=== PATIENT | male | born 1945 | race Caucasian/White ===

== ENCOUNTER 2018-11-18 05:27 | Observation (INO) ==
--- NOTE | 2018-11-02 16:21 | PAT Medication Instructions ---
Medication Instructions Date of Service November 02, 2018 Home Medications aspirin 81 mg PO 4XWK atorvastatin 10 mg PO HS insulin detemir U-100 [Levemir U-100 Insulin] 16 unit SUBCUT HS metformin 1,000 mg PO BID multivitamin 1 tab PO DAILY omega 7-ajm-hfy-fish oil [Fish Oil] 1 cap PO DAILY potassium 99 mg PO BID semaglutide [Ozempic] 5 mg SUBCUT WK Continue as directed semaglutide [Ozempic] 5 mg SUBCUT WK ASK your prescriber and surgeon aspirin 81 mg PO 4XWK STOP taking 2 weeks before surgery (or as soon as possible if surgery is within 2 weeks) omega 4-iav-cnk-fish oil [Fish Oil] 1 cap PO DAILY DO NOT take the morning of surgery metformin 1,000 mg PO BID multivitamin 1 tab PO DAILY potassium 99 mg PO BID Take evening before surgery atorvastatin 10 mg PO HS insulin detemir U-100 [Levemir U-100 Insulin] 16 unit SUBCUT HS metformin 1,000 mg PO BID potassium 99 mg PO BID Other Notes If you have any questions please call us at [phone] or [phone] or [phone] or [phone]
--- NOTE | 2018-11-03 10:33 | Anesthesiology Consultation ---
Date of Service November 03, 2018 Assessment & Plan (1) Encounter for pre-operative examination: - ASA instructions: per surgeon/prescriber. - Check [facility] AM DOS Chart Review Chart Review: Pending: Refer to Additional Notes / Consult section (pending preop testing (labs, EKG)) and Patient seen in Pre Admission Testing Teaching & Discussion Pre-Anesthesia Teaching/Discussion Notes: Instructed NPO after midnight before surgery,except medications with 15 cc of water. Medication instructions provided according to the PAT guidelines. History Surgery Operation Date: 11/18/18 12:15 Proposed Procedures p Left Parotidectomy - Mini Marie MD Height/Weight Height: 5 ft 8 in Weight: 80.8 kg Allergies Allergy/AdvReac Type Severity Reaction Status Date / Time canagliflozin [From Invokana] Allergy Intermediate facial Verified 11/03/18 10:31 swelling lisinopril Allergy Intermediate Cough Verified 10/28/18 11:51 losartan Allergy Intermediate Cough Verified 10/28/18 11:51 azithromycin Allergy Mild Diarrhea Verified 10/28/18 11:51 Medications Home Medications Medication Instructions Recorded Confirmed Last Taken aspirin 81 mg PO 4XWK 10/28/18 10/28/18 Unknown atorvastatin 10 mg PO HS 10/28/18 10/28/18 Unknown insulin detemir U-100 [Levemir 16 unit SUBCUT HS 10/28/18 10/28/18 Unknown U-100 Insulin] metformin 1,000 mg PO BID 10/28/18 10/28/18 Unknown multivitamin 1 tab PO DAILY 10/28/18 10/28/18 Unknown omega 8-roo-fir-fish oil [Fish Oil] 1 cap PO DAILY 10/28/18 10/28/18 Unknown potassium 99 mg PO BID 10/28/18 10/28/18 Unknown semaglutide [Ozempic] 5 mg SUBCUT WK 10/28/18 10/28/18 Unknown Past Medical History Medical History Diabetes mellitus, type 2 IDDM History of high blood pressure previously on BP meds but discontinued due to good control off meds Hyperlipidemia Osteoarthritis Exercise / Class Metabolic Activity II 4-5 Yardwork/Stairs/Walk up hill Past Family History Family History Other No significant family history Past Surgical History Surgical History History of arthroscopy RT KNEE X 2 History of cardiac cath 2010= NO STENTS History of colonoscopy History of tonsillectomy and adenoidectomy History of tooth extraction Past Anesthesia History No Hx of Anesthesia Complications and No Family Hx of Anesthesia Complications History of PONV No Hx of PONV and No Hx of Motion Sickness Social History Smoking Status: Current every day smoker tobacco type: cigars Smoking cigarettes per day: 5 CIGARS/DAILY X 40+ YEARS Do You Dip or Chew Tobacco: No Hx Alcohol Use: No Hx Substance Use: No substance use type: does not use Review of Systems Patient denies chest pain, shortness of breath, dyspnea on exertion, reflux, cough, wheezing, palpitations. Physical Exam Vital Signs VITALS BP 133/76 P 63 TEMP 97.9 SP02 95%RA RESP 16 PHYSICAL Full neck and c-spine range of motion. Full TMJ range of motion. TMD 3.5 finger breaths Mallampati Score 2 Dentition: full upper denture; edentulous Lungs: clear throughout to auscultation Cardiac: regular rate and rhythm, no murmurs noted Spine: normal Carotid arteries: negative bruit Extremities: no edema
[2018-11-03 11:04] LABS: Basophils # (auto) 0.02 K/uL (0-0.2); Basophils % (auto) 0.2 %; Eosinophils # (auto) 0.38 K/uL (0-0.5); Eosinophils % (auto) 3.2 %; Hematocrit (blood only) 49.3 % (42-52); Hemoglobin 17.4 g/dL (14.0-18.0); Immature Granulocytes # (auto) 0.04 K/uL (0.00-0.02); Immature Granulocytes % (auto) 0.3 %; Lymphocytes # (auto) 3.35 K/uL (1.2-3.4); Lymphocytes % (auto) 27.9 %; Mean Corpuscular Hemoglobin 33.1 pg (25-34); Mean Corpuscular Hgb Conc 35.3 g/dL (32-36); Mean Corpuscular Volume 93.9 fL (80-100); Mean Platelet Volume 10.5 fL (7.4-10.4); Monocytes # (auto) 0.85 K/uL (0.11-0.59); Monocytes % (auto) 7.1 %; Neutrophils # (auto) 7.37 K/uL (1.4-6.5); Neutrophils % (auto) 61.3 %; Platelet Count 157 K/uL (130-400); RDW Coefficient of Variation 13.4 % (11.5-14.5); Red Blood Count 5.25 M/uL (4.7-6.1); White Blood Count 12.01 K/uL (4.8-10.8)
[2018-11-03 11:27] LABS: Estimated Average Glucose 157 mg/dl; Hemoglobin A1C 7.1 % (4.5-5.6)
[2018-11-03 12:16] LABS: BUN Creatinine Ratio 17.7 (10-20); Calcium 9.9 mg/dl (8.5-10.1); Creatinine Clr Calc Pharmacy 50.5 ml/min; Est GFR (African American) 64.4; Est GFR (Non-African American) 55.5; Potassium 4.4 mmol/L (3.5-5.1)
--- NOTE | 2018-11-17 14:29 | History & Physical Report ---
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 admitted for superficial parotidectomy Allergies Allergy/AdvReac Type Severity Reaction Status Date / Time canagliflozin [From Invokana] Allergy Intermediate facial Verified 11/03/18 10:31 swelling lisinopril Allergy Intermediate Cough Verified 10/28/18 11:51 losartan Allergy Intermediate Cough Verified 10/28/18 11:51 azithromycin Allergy Mild Diarrhea Verified 10/28/18 11:51 Home Medications Home Medications Medication Instructions Recorded Confirmed Type aspirin 81 mg PO 4XWK 10/28/18 10/28/18 History atorvastatin 10 mg PO HS 10/28/18 10/28/18 History insulin detemir U-100 [Levemir 16 unit SUBCUT HS 10/28/18 10/28/18 History U-100 Insulin] metformin 1,000 mg PO BID 10/28/18 10/28/18 History multivitamin 1 tab PO DAILY 10/28/18 10/28/18 History omega 5-otq-xlr-fish oil [Fish Oil] 1 cap PO DAILY 10/28/18 10/28/18 History potassium 99 mg PO BID 10/28/18 10/28/18 History semaglutide [Ozempic] 5 mg SUBCUT WK 10/28/18 10/28/18 History Past Med/Surg History Medical History Diabetes mellitus, type 2 IDDM History of high blood pressure previously on BP meds but discontinued due to good control off meds Hyperlipidemia Osteoarthritis Surgical History History of arthroscopy RT KNEE X 2 History of cardiac cath 2010= NO STENTS History of colonoscopy History of tonsillectomy and adenoidectomy History of tooth extraction Family History Other No significant family history Social History Preferred Language: Romansh Communication Ability: Effective Dehairer Required: No Beliefs That Will Affect Care: None Current Living Situation: Family Current Living Situation Comment: DAUGHTER Other Information That Helps Us Care for You: No Feels Safe at Home: Yes Safety Concerns: Feels Safe At This Time Smoking Status: Current every day smoker Tobacco Type: cigars ; Cigarettes Per Day: 5 CIGARS/DAILY X 40+ YEARS ; Do You Dip or Chew Tobacco: No ; Second Hand Exposure: No ; Tobacco Cessation Education Requested by Patient: No Hx Alcohol Use: No Hx Substance Use: No Physical Exam Constitutional: WD/WN, vitals as above Eyes: PERRL, conjunctivae normal, anicteric sclerae ENMT: external ear and nose normal, oropharynx normal Neck: 6 cm left tail of parotid mass Respiratory: normal respiratory effort, lungs clear to auscultation Cardiovascular: RRR, no murmur, no edema
[2018-11-18] MEDS ORDERED: LR 15ML/HR IV SCH (06:00)
[2018-11-18] MEDS ORDERED: ONDANSETRON INJ 2 MG/ML 2 ML VIAL ONE (06:45)
[2018-11-18] MEDS ORDERED: MIDAZOLAM HCL 1 MG/ML 2ML VIAL ONE (06:45)
[2018-11-18] MEDS ORDERED: LIDOCAINE HCL 2% 2 ML VIAL/AMP(20MG/ML) INFIL ONE (06:45)
[2018-11-18] MEDS ORDERED: ROCURONIUM BROMIDE 10 MG/ML 5 ML VIAL ONE (06:45)
[2018-11-18] MEDS ORDERED: PROPOFOL IV EMULSION 10 MG/ML 20 ML VIAL IV ONE (06:45)
[2018-11-18] MEDS ORDERED: fentaNYL citrate 100 MCG/2 ML VIAL ONE ×2 (06:45→08:19)
[2018-11-18] MEDS ORDERED: CEFAZOLIN 2,000 MG/15 ML IV PUSH IV ONE (06:57)
[2018-11-18] MEDS ORDERED: ONDANSETRON INJ 2 MG/ML 2 ML VIAL IV PRN ×3 (07:01→09:54)
[2018-11-18] MEDS ORDERED: ePHEDrine sulfate 50 MG/ML AMP IV PRN (07:01)
[2018-11-18] MEDS ORDERED: fentaNYL citrate 100 MCG/2 ML VIAL IV PRN (07:01)
[2018-11-18] MEDS ORDERED: ATROPINE SULFATE 0.1 MG/ML 10ML SYR IV PRN (07:01)
[2018-11-18] MEDS ORDERED: CEFAZOLIN 2000MG 2,000 MG/15 ML SYR IV ONE (07:02)
--- NOTE | 2018-11-18 07:02 | History & Physical Bridge Note ---
Date of Service November 18, 2018 History & Physical Bridge Note I have examined the patient, reviewed the History & Physical and in the interval since the performance of the History & Physical I have noted the following changes of clinical significance: no changes noted
[2018-11-18] MEDS ORDERED: BACITRACIN OINT 15 GM TUBE ONE (07:14)
[2018-11-18] MEDS ORDERED: LIDOCAINE/EPINE 2% 1:100,000 20ML ONE (07:15)
[2018-11-18] MEDS ORDERED: OXYCODONE/ACETAMINOPHEN 5mg/325mg TAB PO PRN (09:52)
[2018-11-18] MEDS ORDERED: MoRPHine SULFATE 4 MG/ML 1 ML CARP\\VIAL IV PRN (09:54)
[2018-11-18] MEDS ORDERED: MoRPHine SULFATE 10 MG/ML CARP/VIAL IV PRN (09:54)
[2018-11-18] MEDS ORDERED: LACTATED RINGER'S 1,000 ML IV SCH (10:00)
--- NOTE | 2018-11-18 10:11 | Operative Report ---
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 The left parotid incision was delineated and injected with 2% Xylocaine with 1-100,000 strength epinephrine. Incision was made using a 15 blade following the preauricular crease around the lobule of the ear to the m astoid and then in a curvilinear manner down the neck. The parotid flap was elevated using the 15 blade and the scissors. The sternocleidomastoid muscle was from the parotid gland posteriorly. The gland was from the auricular cartilage and the tragal cartilage superiorly. Greater auricular nerve was encountered preserving the posterior branch but sacrificing the anterior branches going across the parotid gland. Dissection was continued following the tragal pointer down to the facial nerve which was followed from the pez anserinus anteriorly and then tracing all branches of the nerve anteriorly as it exited the parotid gland the superficial lobe from the deep lobe and also preserving most of the superior portion of the parotid above the temporal zygomatic division of the facial nerve. Bleeders were controlled using the bipolar cautery and the harmonic scalpel. Silk ties were also used to control bleeders. Posterior facial vein was clamped divided and tied with silk ties. In this manner the entire superficial lobe of the parotid was removed along with the tumor and sent to pathology. The wound was irrigated copious amounts of saline and further bleeders were controlled using the bipolar cautery. Salix drain was placed in the depth of the wound. Incision was closed with interrupted 4-0 Vicryl sutures on the platysma layer and on the sub- cutaneous layer and then 5-0 nylon on the skin layer. A light pressure dressing was placed. The patient tolerated procedure well and was taken to recovery area in satisfactory condition. I attest to the content of the Intraoperative Record and any orders documented therein. Any exceptions are noted below.
--- NOTE | 2018-11-18 10:35 | Anesthesiology Progress Note ---
Date of Service November 18, 2018 Anesthesia Post Procedure Vital Signs Vital Signs: Temp Pulse Pulse Resp BP Pulse Ox 11/18/18 10:24 83 22 113/64 92 11/18/18 10:15 97.5 F L 86 21 120/68 98 11/18/18 10:05 97.5 F L 90 22 106/55 L 99 11/18/18 09:55 97.5 F L 94 H 16 130/73 99 11/18/18 05:52 98.6 F 78 18 145/58 H 97 Pain Intensity Left Neck: Pain Intensity: 2 Transfer of Care Handoff Completed per policy Notes Mental Status: alert / awake / arousable and participated in evaluation Patient Amnestic to Procedure: Yes Nausea / Vomiting: adequately controlled Pain: adequately controlled Airway Patency, RR, SpO2: stable & adequate BP & HR: stable & adequate Hydration State: stable & adequate Anesthetic Complications: no major complications apparent and Pt Satisfied with anesthetic care
[2018-11-18] MEDS: CEFAZOLIN 1000MG 1,000 MG/7.5 ML SYR IV SCH ×2 (14:16→22:15)
[2018-11-18] MEDS: METFORMIN HCL 500 MG TAB PO SCH (17:44)
[2018-11-18] MEDS ORDERED: INSULIN DETEMIR FLEXPEN/FLEX TOUCH 100 UNITS/ML 3ML SQ SCH (21:00)
[2018-11-18] MEDS ORDERED: ATORVASTATIN 10 MG TAB PO SCH (21:00)
[2018-11-18] MEDS ORDERED: NON-FORMULARY MEDICATION (Potassium 99 MG) PO SCH (21:00)
[2018-11-19] MEDS: CEFAZOLIN 1000MG 1,000 MG/7.5 ML SYR IV SCH (06:08)
[2018-11-19 07:38] LABS: Estimated Average Glucose 151 mg/dl; Hemoglobin A1C 6.9 % (4.5-5.6)
--- NOTE | 2018-11-19 08:03 | Discharge Summary ---
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 Discharge Exam Constitutional WD/WN, vitals as above Eyes PERRL, conjunctivae normal, anicteric sclerae ENMT external ear and nose normal, oropharynx normal Neck Status post left parotidectomy, drain removed, no sign of hematoma, light dressing placed Neurologic Able to close left eye, weakness left face but mobile Discharge Data Allergies Allergy/AdvReac Type Severity Reaction Status Date / Time canagliflozin [From Invokana] Allergy Intermediate facial Verified 11/18/18 05:46 swelling lisinopril Allergy Intermediate Cough Verified 11/18/18 05:46 losartan Allergy Intermediate Cough Verified 11/18/18 05:46 azithromycin Allergy Mild Diarrhea Verified 11/18/18 05:46 Procedures Performed Operation Date: 11/18/18 07:15 Actual Procedures p Left Parotidectomy(Left) - Mini Marie MD Hospital Course (1) Mass of left parotid gland: Left superficial parotidectomy was performed date of surgery without complication finding all branches of the nerve. Postoperatively there was weakness of the left face. Drain was removed on the first postoperative date. The patient is discharged home and instructed to return to my office in 10 days for suture removal. The facial nerve was intact at surgery so the facial weakness should gradually return to normal. Total Time Total Time Spent Total Time Spent (In Minutes): 30 minutes Discharge Plan Discharge Items Patient Disposition: Home - Self-Care Reason For Visit: Left Parotid Mass Discharge Diagnosis: Same Activity: Per Instructions section Lifting: Gradually increase as tolerated Bathing: No limitations Sexual Activity: When tolerated Exercise/Sports: Rest today and Gradually increase as tolerated Driving/Machine Use: Resume 1 day after discharge Non-emergency contact: Primary Care Provider Call non-emergency contact if: your pain is not controlled and your temperature is above 101 Follow-up/Referrals: PCP,NO [Primary Care Provider] - Diet: Regular Addtl Attending Provider Instructions: ACTIVITY: Most patients are able to return to a full-time work schedule in 1 week; however this may vary according to your job. It may take longer to return to heavy physical or other demanding work, or shorter if you are feeling well. Do NOT drive a car until you are able to turn the neck side to side, which may take 1-[address] you are taking pain medicines. DIET: You may have temporary throat discomfort or difficulty swallowing. This is due to the surgery around your larynx (voice box) and esophagus (swallowing tube). These symptoms will gradually improve over the course of several weeks. Drink and eat foods that can be swallowed easily, e.g. juice, soup, gelatin, applesauce, scrambled eggs or mashed potatoes. You may be able to return to your usual diet in a couple of days. INCISION CARE: You may shower 24 hours after surgery but please do not swim or soak in a tub for at least 2 weeks. After you are done showering, just pat your incision dry. If it is draining clear fluid, you can cover it with a dry dressing (such as gauze). Do NOT scrub with soap or washcloth for the first 10 days. Mild swelling at the incision site will go away in 4-6 weeks. The pink line will slowly fade to white during the next 6-12 months. Use a sunscreen (SPF#30 or higher) or wear a scarf for protection if in the sun for the first 6 months to a year as the sun can darken your scar. You may begin to use a hypoallergenic moisturizing cream (no vitamin E, Mederma, or other scar creams) along the incision after 2 weeks. COMMON PROBLEMS: Numbness of the skin under the chin or above the incision is normal and should go away in a few weeks. You may feel a lump or pressure in your throat sensation when swallowing for a few days. Your incision may feel itchy while it heals. Avoid rubbing or scratching if possible. You may feel neck stiffness, tightness or a pulling feeling. Some people prefer to sleep with an extra pillow for the first few days after the surgery, this helps keep swelling around your incision to a minimum. Your voice may be hoarse or weak. Pitch or tone may change. You may have difficulty singing. This usually goes back to normal over 6 weeks to 6 months. After surgery, you may notice a change in your mood, emotional ups and downs, depression, irritability or fatigue and weakness. These changes will get better as time passes. You do not need to be at bed rest, being active is normally well tolerated within reason. CALL YOUR DOCTOR IF: For any non-urgent questions, call Dr. Conklin office [phone] or the nursing unit where you were a patient. Call Dr. Marie [phone] or go to the Emergency Room if you have fever (temperature greater than 100.5), chills, lightheadedness, shortness of breath, difficulty breathing, nausea, vomiting, numbness or tingling in your fingers, hands, or mouth, muscle spasms, or if you notice signs of wound infection (redness, tenderness, or drainage from the incision). Please also call or go to the Emergency Room if you have any other urgent concerns. FOLLOW UP VISIT: Follow-up visit with Dr. Marie. Please call to schedule if not already scheduled. Pending Studies at Discharge: Yes Studies:: Pathology Stand-Alone Forms: [facility] Medications and DC Order Prescriptions: New tramadol 50 mg Tablet 50 mg PO Q6H PRN (Reason: pain) Qty: 20 RF: 0 Continued multivitamin Tablet 1 tab PO DAILY RF: 0 atorvastatin 10 mg Tablet 10 mg PO HS RF: 0 potassium 99 mg Tablet 99 mg PO BID RF: 0 metformin 1,000 mg Tablet 1,000 mg PO BID RF: 0 Levemir U-100 Insulin 100 unit/mL Solution 16 unit SUBCUT HS RF: 0 omega 5-jis-zhl-fish oil [Fish Oil] 1,000 mg (120 mg-180 mg) Capsule 1 cap PO DAILY RF: 0 Ozempic 0.25 mg or 0.5 mg(2 mg/1.5 mL) Pen Injector 5 mg SUBCUT WK RF: 0 aspirin 81 mg Tablet,Delayed Release (Dr/Ec) 81 mg PO 4XWK RF: 0 Discharge Orders: Discharge Order (Routine); Ordered 11/19/18 Ordered By: Mini Marie Admission Data Admit Date/Time: 11/18/18 09:56 Attending Provider: Mini Marie Admit Provider: Mini Marie Primary Care Provider: [email or web address]
[2018-11-19] MEDS: METFORMIN HCL 500 MG TAB PO SCH (08:23)
== END 2018-11-19 09:35 | disposition home or self-care (01) ==
LOC: ASU 05:27 → 3N 05:27

== ENCOUNTER 2019-09-06 06:19 | Inpatient (IN) ==
--- NOTE | 2019-08-22 16:44 | PAT Medication Instructions ---
Medication Instructions Date of Service August 22, 2019 Home Medications Levemir U-100 Insulin 16 unit SUBCUT HS Ozempic 5 mg SUBCUT WK aspirin 81 mg PO 4XWK atorvastatin 20 mg PO HS metformin 1,000 mg PO BID multivitamin 1 tab PO QAM omega 2-gnw-lnr-fish oil [Fish Oil] 1 cap PO QAM potassium gluconate 600 mg PO BID saw-vit E-sod dee-xwg-mdwp-pyg [Prostate Health] 1 tab PO QAM Continue as directed Ozempic 5 mg SUBCUT WK (just do not take AM of surgery) ASK your surgeon for instructions aspirin 81 mg PO 4XWK STOP taking 2 weeks before surgery saw-vit E-sod gjg-xts-czxp-pyg [Prostate Health] 1 tab PO QAM omega 4-jbk-eid-fish oil [Fish Oil] 1 cap PO QAM DO NOT take the morning of surgery potassium gluconate 600 mg PO BID multivitamin 1 tab PO QAM metformin 1,000 mg PO BID Take evening before surgery potassium gluconate 600 mg PO BID atorvastatin 20 mg PO HS metformin 1,000 mg PO BID Levemir U-100 Insulin 16 unit SUBCUT HS OTHERWISE NOTHING TO EAT OR DRINK AFTER MIDNIGHT Other Notes If you have any questions please call us at [phone] or [phone] or [phone] or [phone]
--- NOTE | 2019-08-23 13:59 | Anesthesiology Consultation ---
Date of Service August 23, 2019 The patient is recovering from a recent URI. He has no cough or fever at this time. He was tested for Covid 19 on 08/25/19 after the URI started and again on 09/01/19 and was found to be negative both times. The risks of worsening URI after general anesthesia were discussed with the patient and he would like to proceed with surgery today. Assessment & Plan (1) Encounter for pre-operative examination: Chart Review Chart Review: Acceptable Risk for Surgery (pending preop Covid testing ) and Patient seen in Pre Admission Testing - Check BSG AM DOS Per PAT appt 08/23/19, no recent travel. Educated patient to follow up with surgeon's office regarding Covid testing. Educated on importance of self quarantining, social distancing and wearing mask in public both for the patient and household contacts. Left parotidectomy 11/18/18= Done under GA with LMA #5 i-gel. No anesthesia issues noted Teaching & Discussion Pre-Anesthesia Teaching/Discussion Notes: Instructed NPO after midnight before surgery,except medications with 15 cc of water. Medication instructions provided according to the PAT guidelines. History Surgery Operation Date: 09/06/19 08:25 Proposed Procedures p Percutaneous Endovascular Aneurysm Repair - Hector Burt MD Height/Weight Height: 5 ft 7 in Weight: 78.9 kg Allergies Allergy/AdvReac Type Severity Reaction Status Date / Time canagliflozin [From Invokana] Allergy Intermediate facial Verified 09/06/19 06:42 swelling lisinopril Allergy Intermediate Cough Verified 09/06/19 06:42 losartan Allergy Intermediate Cough Verified 09/06/19 06:42 azithromycin Allergy Mild Diarrhea Verified 09/06/19 06:42 Medications Home Medications Medication Instructions Recorded Confirmed Last Taken Levemir U-100 Insulin 16 unit SUBCUT HS 10/28/18 09/06/19 09/05/19 21:30 Ozempic 5 mg SUBCUT WK 10/28/18 09/06/19 09/01/19 aspirin 81 mg PO 4XWK 10/28/18 09/06/19 08/30/19 atorvastatin 20 mg PO HS 10/28/18 09/06/19 09/05/19 21:30 metformin 1,000 mg PO BID 10/28/18 09/06/19 09/05/19 21:30 multivitamin 1 tab PO QAM 10/28/18 09/06/19 09/05/19 09:00 omega 9-zvy-usf-fish oil [Fish Oil] 1 cap PO QAM 10/28/18 09/06/19 08/23/19 potassium gluconate 600 mg PO BID 08/18/19 09/06/19 09/03/19 saw-vit E-sod vhd-voe-mxur-pyg 1 tab PO QAM 08/18/19 09/06/19 08/23/19 [Prostate Health] Active Medications Generic Name Dose Route Start Last Admin Trade Name Abhishek PRN Reason Stop Dose Admin Sodium Chloride 1,000 mls @ 50 mls/hr 09/06/19 06:00 09/06/19 07:04 Nss 1000ml IV 09/07/19 01:59 50 mls/hr .Q20H CRISTHIAN Administration Past Medical History Medical History Abdominal aortic aneurysm REASON FOR PROCEDURE Diabetes mellitus, type 2 IDDM-WELL CONTROLLED AND STABLE Hearing deficit WEARS HEARING AIDS History of high blood pressure previously on BP meds but discontinued due to good control off meds Hyperlipidemia Osteoarthritis Seasonal allergies Tinnitus Exercise / Class Metabolic Activity II 4-5 Yardwork/Stairs/Walk up hill (ONE FLIGHT OF STAIRS - NO CHEST PAIN OR SOB ) Past Family History Family History Other No significant family history Past Surgical History Surgical History History of arthroscopy RT KNEE History of cardiac cath 2010= NO STENTS History of colonoscopy History of tonsillectomy and adenoidectomy History of tooth extraction Warthin's tumor WITH REMOVAL Past Anesthesia History No Hx of Anesthesia Complications and No Family Hx of Anesthesia Complications History of PONV No Hx of PONV and No Hx of Motion Sickness Social History Smoking Status: Current every day smoker tobacco type: cigars Smoking cigarettes per day: 4-5 CIGARS PER DAY Do You Dip or Chew Tobacco: No Hx Alcohol Use: No Hx Substance Use: No substance use type: does not use Review of Systems Patient denies chest pain, shortness of breath, dyspnea on exertion, reflux, cough, wheezing, palpitations. No hx of seizures, stroke, [place], apnea/snoring. No hx of blood clots or blood transfusions Physical Exam Vital Signs Last Vital Signs Temp 36.7 C 09/06/19 06:48 Pulse 80 09/06/19 06:48 Resp 18 09/06/19 06:48 BP 152/98 H 09/06/19 06:48 Pulse Ox 96 09/06/19 06:48 VITALS BP 147/77 P 87 TEMP 98.5 SP02 96% RESP 16 Constitutional no acute distress ENMT Mouth: no TMJ clicking Thyromental Distance: > or= 3.5 Finger Breadths (3.5) Mallampati Class: II Missing all teeth Neck + limited neck extension (mild ) Respiratory normal respiratory effort; no respiratory distress Auscultation: lungs clear to auscultation bilaterally; no wheezes Cardiovascular Rate/Rhythm: regular rate and regular rhythm Heart Sounds: no murmur Vessels: no carotid bruit Musculoskeletal Spine: + pain with cervical ROM (mild ) Neurologic moves all extremities Psychiatric Orientation: alert Testing Laboratory Results 08/23/19 14:10 PT 11.3 Seconds (9.0-12.0) 08/23/19 14:10 INR 1.1 (0.9-1.1) 08/23/19 14:10 APTT 33.4 Seconds (21.0-31.0) H 08/23/19 14:10 Hemoglobin A1c 7.0 % (4.5-5.6) H 08/23/19 14:10 Blood Type O Positive 08/23/19 14:10 Antibody Screen NEGATIVE 08/23/19 14:10 09/06/19 06:39 POC Glucose 135 H Leukocytosis stable since 10/2018 Electrocardiogram Date: 11/03/18 Findings: + NSR @ (64) Chest X-Ray Date: 08/23/19 Findings: + NAD Stress Test Date: 03/23/18 Type: nuclear Normal myocardial perfusion study without fixed or stressed induced reversible ischemia. Normal wall motion. EF= 51%
--- NOTE | 2019-08-23 14:32 | XRay Report ---
XR chest Pre-admission PA/Lat CLINICAL HISTORY: Preoperative chest COMPARISON STUDY: 06/08/2010 FINDINGS: The heart is normal in size. The patient is mildly hyperinflated. There is no focal pulmona ry consolidation. There are small subpleural septal lines at the right lateral lung base. These likel y represent areas of atelectasis or scarring. Acute interstitial edema is not felt likely.[ IMPRESSION: No active disease in the chest. ACT 112: Negative or not required by law. Electronically signed by: Odell Yang M.D. 08/23/2019 2:31 PM
[2019-08-23 16:10] LABS: Basophils # (auto) 0.03 K/uL (0-0.2); Basophils % (auto) 0.2 %; Eosinophils # (auto) 0.51 K/uL (0-0.5); Hematocrit (blood only) 46.5 % (42-52); Immature Granulocytes # (auto) 0.03 K/uL (0.00-0.02); Immature Granulocytes % (auto) 0.2 %; Lymphocytes # (auto) 2.65 K/uL (1.2-3.4); Lymphocytes % (auto) 20.8 %; Mean Corpuscular Hemoglobin 31.9 pg (25-34); Mean Corpuscular Hgb Conc 34.4 g/dL (32-36); Mean Corpuscular Volume 92.8 fL (80-100); Mean Platelet Volume 11.2 fL (7.4-10.4); Monocytes # (auto) 0.86 K/uL (0.11-0.59); Monocytes % (auto) 6.7 %; Neutrophils # (auto) 8.68 K/uL (1.4-6.5); Neutrophils % (auto) 68.1 %; Platelet Count 170 K/uL (130-400); RDW Standard Deviation 44.3 fL (36.4-46.3); Red Blood Count 5.01 M/uL (4.7-6.1); White Blood Count 12.76 K/uL (4.8-10.8)
[2019-08-23 16:20] LABS: Calcium 9.4 mg/dl (8.5-10.1); Creatinine Clr Calc Pharmacy 41.3 ml/min; Est GFR (African American) 53.2; Est GFR (Non-African American) 45.9; Potassium 4.4 mmol/L (3.5-5.1)
[2019-08-23 16:22] LABS: INR 1.1 (0.9-1.1); Partial Thromboplastin Ratio 1.2; Partial Thromboplastin Time 33.4 Seconds (21.0-31.0); Prothrombin Time 11.3 Seconds (9.0-12.0)
[2019-08-24 06:10] LABS: Estimated Average Glucose 154 mg/dl
[~2019-09-06 06:19] MED LIST: CEFAZOLIN 1000MG 1,000 MG/7.5 ML SYR IV SCH; CEFAZOLIN 2000MG 2,000 MG/15 ML SYR IV SCH; SODIUM CHLORIDE 0.9% 1000ML 1,000 ML IV SCH; SODIUM CHLORIDE 0.9% 1000ML IV SCH
[2019-09-06] MEDS ORDERED: GELATIN SPONGE SZ 100 ONE (07:07)
[2019-09-06] MEDS ORDERED: HEPARIN (PORCINE) 1000 UNIT/ML 10 ML (CATH LAB USE ONLY) ONE ×2 (07:07→07:20)
[2019-09-06] MEDS ORDERED: THROMBIN 5000 UNITS KIT ONE (07:07)
[2019-09-06] MEDS ORDERED: CEFAZOLIN 250 MG/ML 1 GM VIAL ONE ×2 (07:07→09:47)
[2019-09-06] MEDS ORDERED: THROMBIN FOR SOLN 20000 UNIT KIT ONE ×2 (07:09→07:20)
[2019-09-06] MEDS ORDERED: LIDOCAINE HCL 1% 20 ML VIAL ONE (07:11)
[2019-09-06] MEDS ORDERED: BUPIVACAINE/EPINEPHRINE 0.5% MPF 1:200,000 10 ML VIAL ONE (07:12)
[2019-09-06] MEDS ORDERED: IODIXANOL (VISIPAQUE) 270 MG/ML 50ML ONE (07:12)
[2019-09-06] MEDS ORDERED: PHENYLEPHRINE 100MCG/ML 5ML SYR IV PRN (07:34)
[2019-09-06] MEDS ORDERED: ONDANSETRON INJ 2 MG/ML 2 ML VIAL IV PRN ×2 (07:34→13:10)
[2019-09-06] MEDS ORDERED: HYDROmorphone INJ 1 MG/ML SYRINGE IV PRN (07:34)
[2019-09-06] MEDS ORDERED: MEPERIDINE HCL 25 MG/ML CARP/VIAL IV PRN (07:34)
[2019-09-06] MEDS ORDERED: LABETALOL HCL IV 5 MG/ML 20ML IV PRN (07:34)
[2019-09-06] MEDS ORDERED: fentaNYL citrate 100 MCG/2 ML VIAL IV PRN (07:34)
[2019-09-06] MEDS ORDERED: ATROPINE SULFATE 0.1 MG/ML 10ML SYR IV PRN (07:34)
[2019-09-06] MEDS ORDERED: ePHEDrine sulfate 50 MG/ML AMP IV PRN (07:34)
[2019-09-06] MEDS ORDERED: ONDANSETRON INJ 2 MG/ML 2 ML VIAL ONE (07:46)
[2019-09-06] MEDS ORDERED: ePHEDrine sulfate 50 MG/ML SYR ONE (07:46)
[2019-09-06] MEDS ORDERED: NEOSTIGMINE METHYLSULFATE 5 MG/5 ML SYR ONE (07:46)
[2019-09-06] MEDS ORDERED: HEPARIN SOD (PORCINE) 1000 UNIT/ML 10 ML VIAL ONE (07:46)
[2019-09-06] MEDS ORDERED: LABETALOL HCL IV 5 MG/ML 20ML IV ONE (07:46)
[2019-09-06] MEDS ORDERED: PROPOFOL IV EMULSION 10 MG/ML 20 ML VIAL IV ONE (07:46)
[2019-09-06] MEDS ORDERED: LIDOCAINE HCL 2% 2 ML VIAL/AMP(20MG/ML) INFIL ONE (07:46)
[2019-09-06] MEDS ORDERED: MIDAZOLAM HCL 1 MG/ML 2ML VIAL ONE (07:46)
[2019-09-06] MEDS ORDERED: LARYING-O-JET KIT (LTA) ONE (07:46)
[2019-09-06] MEDS ORDERED: DEXAMETHASONE SOD INJ 4 MG/ML VIAL ONE (07:46)
[2019-09-06] MEDS ORDERED: fentaNYL citrate 100 MCG/2 ML VIAL ONE (07:46)
[2019-09-06] MEDS ORDERED: GLYCOPYRROLATE 0.2 MG/ML VIAL ONE (07:46)
[2019-09-06] MEDS ORDERED: ROCURONIUM BROMIDE 10 MG/ML 5 ML VIAL IV ONE ×2 (07:46→10:09)
[2019-09-06] MEDS ORDERED: PHENYLEPHRINE HCL 10 MG/ML VIAL ONE (07:46)
[2019-09-06 07:48] LABS: BUN Creatinine Ratio 15.6 (10-20); Calcium 9.2 mg/dl (8.5-10.1); Creatinine Clr Calc Pharmacy 48.4 ml/min; Est GFR (African American) 64.5; Est GFR (Non-African American) 55.7; Potassium 3.8 mmol/L (3.5-5.1)
--- NOTE | 2019-09-06 07:50 | History & Physical Report ---
Date of Service September 06, 2019 History of Present Illness Chief Complaint: AAA Primary Care Provider: Montserrat Snell History of Present Illness I the pleasure of seeing Felipe today for evaluation of abdominal aortic aneurysm. As you know he is a 74-year-old gentleman who was being worked up for hematuria. He had a CAT scan of the head which showed a 5.1 cm abdominal aright aneurysm. This is the first seen about this. He has had no symptoms of his aneurysm. He also denies any symptoms of claudication or cerebrovascular sufficiency. He does have diabetes and hypertension and does have a positive smoking history. Review of Systems Review of systems was obtained of 10 systems. The only positive findings are diabetes hypertension. 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 Rest of the positive findings are as the HPI. Physical Exam On exam the patient is awake alert and oriented x3. He is in no apparent distress. His blood pressure is 140/64 in the right 154/64 in the left. Lungs are clear heart irregular rate and rhythm. Abdominal exam is benign. There is a widened pulsatile mass in the midepigastrium. Vascular exam shows radials carotids 2+ bilaterally. There are no carotid bruits. Femorals are +2 bilaterally. Pedal pulses are palpable +1 bilaterally. There is normal capillary refill both feet. Neurologic exam is intact. Assessment/Plan AAA (abdominal aortic aneurysm) At this point being the aneurysm size of 5.1 cm we recommended repair. The CAT scan shows that he is a good endovascular candidate for repair. We will obtain a stress test preoperatively. We will keep you informed as to his results. Thank you very much let us participate in the care of this patient. Sincerely, Johnathan Burt MD Ordered: Echo Stress, Pharmacologic Problem List/Past Medical History Ongoing AAA (abdominal aortic aneurysm) Atherosclerotic heart disease Diabetes Enlarged lymph node Hyperlipidemia Hypertension Parotid mass Historical No qualifying data Procedure/Surgical History Warthin's tumor removal (2019) Surgery Tonsillectomy and adenoidectomy Medications Inpatient No active inpatient medications Home aspirin 81 mg oral delayed release tablet, 81 mg= 1 tab, PO, Daily EPA Fish Oil 1000 mg oral capsule, Daily insulin detemir 100 units/mL subcutaneous solution, 16 unit, subQ, Daily Lipitor 10 mg oral tablet, 20 mg= 2 tab, PO, qhs metFORMIN, 1000 mg, bid multivitamin, 1 tab, PO, Daily potassium potassium chloride 99 mg oral tablet, 99 mg= 1 tab, PO, bid semaglutide, 0.5 mg, subQ, q7days Tresiba 100 units/mL subcutaneous solution, 20 unit, Daily Allergies Invokana (Swelling - edema - symptom) azithromycin (Diarrhea) lisinopril (Cough) losartan (Cough) Social History Smoking Status - 07/19/2018 Former Smoker, quit > 1 yr Alcohol - Denies Alcohol Use, 07/19/2018 Substance Abuse - Denies Substance Abuse, 07/19/2018 Tobacco Current every day smoker, Cigars, 5 per day., 07/19/2018 Family History Heart attack: Father and Brother. Heart disease: Father and Brother. Signature Line Electronic Signature on File Electronically Reviewed/Signed by: Hector Burt MD Author Signature Dt/Tm:08/14/2019 04:17 PM Manager Behavior Jun Sesay [facility] [place]-[address], [address] [place] [address] EJS Result Type: Physician Consult Date of Service: August 14, 2019 16:17 EDT Authorization Status: Final Subject: Consult Note Author or Import Date: MD Burt Eugene J on August 14, 2019 16:17 EDT Verified By: MD Burt Eugene J on August 14, 2019 16:17 EDT Encounter info: [id number], [facility], Clinic, 08/14/2019 - 08/14/2019 Allergies Allergy/AdvReac Type Severity Reaction Status Date / Time canagliflozin [From Invokana] Allergy Intermediate facial Verified 09/06/19 06:42 swelling lisinopril Allergy Intermediate Cough Verified 09/06/19 06:42 losartan Allergy Intermediate Cough Verified 09/06/19 06:42 azithromycin Allergy Mild Diarrhea Verified 09/06/19 06:42 Home Medications Home Medications Medication Instructions Recorded Confirmed Type Levemir U-100 Insulin 16 unit SUBCUT HS 10/28/18 09/06/19 History Ozempic 5 mg SUBCUT WK 10/28/18 09/06/19 History aspirin 81 mg PO 4XWK 10/28/18 09/06/19 History atorvastatin 20 mg PO HS 10/28/18 09/06/19 History metformin 1,000 mg PO BID 10/28/18 09/06/19 History multivitamin 1 tab PO QAM 10/28/18 09/06/19 History omega 3-omc-hhv-fish oil [Fish Oil] 1 cap PO QAM 10/28/18 09/06/19 History potassium gluconate 600 mg PO BID 08/18/19 09/06/19 History saw-vit E-sod ewq-oiw-ficl-pyg 1 tab PO QAM 08/18/19 09/06/19 History [Prostate Health] Past Med/Surg History Medical History Abdominal aortic aneurysm REASON FOR PROCEDURE Diabetes mellitus, type 2 IDDM-WELL CONTROLLED AND STABLE Hearing deficit WEARS HEARING AIDS History of high blood pressure previously on BP meds but discontinued due to good control off meds Hyperlipidemia Osteoarthritis Seasonal allergies Tinnitus Surgical History History of arthroscopy RT KNEE History of cardiac cath 2010= NO STENTS History of colonoscopy History of tonsillectomy and adenoidectomy History of tooth extraction Warthin's tumor WITH REMOVAL Family History Other No significant family history Social History Smoking Status: Current every day smoker Cigarettes Per Day: 4-5 CIGARS PER DAY; Second Hand Exposure: No; Do You Dip or Chew Tobacco: No; Tobacco Cessation Education Requested by Patient: No Hx Alcohol Use: No Hx Substance Use: No Preferred Language: Paraguayan Communication Ability: Effective Fermentation Operator Required: No Beliefs That Will Affect Care: None Current Living Situation: Alone Current Living Situation Comment: DAUGHTER Other Information That Helps Us Care for You: No Feels Safe at Home: Yes Safety Concerns: Feels Safe At This Time Results & Data Vital Signs (Past 12 Hours) Vital Signs Temp Pulse Resp BP BP Pulse Ox 09/06/19 06:48 36.7 C 80 18 152/98 H 160/83 H 96
[2019-09-06] MEDS ORDERED: LIDOCAINE 2% JELLY 5 ML TUBE ONE (08:55)
--- NOTE | 2019-09-06 09:00 | History & Physical Bridge Note ---
Date of Service September 06, 2019 History & Physical Bridge Note I have examined the patient, reviewed the History & Physical and in the interval since the performance of the History & Physical I have noted the following changes of clinical significance: no changes noted
[2019-09-06] MEDS ORDERED: CEFAZOLIN 250 MG/ML 1 GM VIAL IV STA (10:55)
--- NOTE | 2019-09-06 11:07 | Post Operative Brief Note ---
Immediate Post Op Note v1 Date of Surgery September 06, 2019 Pre & Post Diagnosis Operation Date: 09/06/19 08:25 Pre-Op Diagnosis: Abdominal Aortic Aneurysm Post-Op Diagnosis: Abdominal Aortic Aneurysm I identified the patient and participated in the time-out.: Yes Procedure Operation Date: 09/06/19 08:25 Actual Procedures p Percutaneous Endovascular Aneurysm Repair(Bilateral), Bilateral percutaneous access - Hector Burt MD Surgeon Hector Burt MD Director Radio News MD Johanna Estimated Blood Loss 50 Findings Consistent with Post-Op Diagnosis Drains Mejia Catheter Anesthesia Type General Complications none Disposition Accompanied Patient To Recovery: No Disposition: Recovery Room
[2019-09-06] MEDS ORDERED: ARISTA ABSORBABLE HEMOSTAT 3GM TOP ONE (11:10)
[2019-09-06] MEDS ORDERED: VISIPAQUE IV PRN (11:10)
--- NOTE | 2019-09-06 11:23 | Operative Report ---
Post Operative Report Pre & Post Diagnosis Operation Date: 09/06/19 08:25 Pre-Op Diagnosis: Abdominal Aortic Aneurysm Post-Op Diagnosis: Abdominal Aortic Aneurysm I identified the patient and participated in the time-out.: Yes Procedure Operation Date: 09/06/19 08:25 Actual Procedures p Percutaneous Endovascular Aneurysm Repair(Bilateral), Bilateral percutaneous femoral access - Hector Burt MD Surgeon Johnathan Burt MD Bodywork Therapist MD Johanna Estimated Blood Loss 50 Findings Consistent with Post-Op Diagnosis Type II endoleak at the end of the operation Fluids Crystalloid Specimens None Drains None Anesthesia Type General Complications none Disposition Accompanied Patient To Recovery: No Disposition: PCU Indications Mr. Felipe Ward is a 74-year-old gentleman with known abdominal aortic aneurysm that has been increasing in size and now meets indications for operative inte rvention. He presents today for endovascular repair Description of Procedure The patient was brought to the operating room and placed on the table in the supine position with the arms extended. General anesthesia was administered. The patient was prepped and draped in a sterile fashion. A timeout was called and the patient identified. We began by gaining access through the left groin. This was done by palpation of the femoral artery and direct catheterization. Once access was obtained we placed an 035 guidewire followed by a 5 Fr sheath. An angio was performed which showed the puncture in the common femoral artery. Two perclose devices were then placed and an 8Fr sheath inserted. We then gained access through the right groin using ultrasound guidance. The femoral artery was found to be widely patent. 035 guidewire was then inserted followed by a 5 Fr sheath. An angio was performed which showed the puncture in the common femoral artery. Two perclose devices were then placed and an 8Fr sheath inserted. An 035 guidewire was then passed to the suprarenal aorta from both groins. A Kumpe catheters were then inserted over the guidewires bilaterally. Vanessa wires then replaced the 035 guidewires. On the left, an 18 Ukrainian dry seal sheath was then placed. On the right a 12 Ukrainian dry seal sheath was placed. We inserted a 31 mm x 14.5 mm x 15 cm C3 graft through the left groin and a pigtail through the right femoral sheath. An aortogram was performed to identify the aneurysm and the level of the renal vessels and this was marked and noted. The graft was then deployed. Another angio was done confirming the infrarenal positioning of the graft. The hooks were then deployed after the pigtail was pulled down. Using an 035 glidewire and a Kumpe catheter the gate was cannulated. The Kumpe twirled easily in the neck of the graft. The marker pigtail was reinserted into the right groin. The 12 Fr sheath was then pulled back and an angio performed marking the iliac bifurcation. We then chose a [id number] contralateral limb. We then inserted a 16 mm x 18 mm x 11.5 cm graft. This was then deployed without difficulty. We then passed a Q 50 balloon to perform an angioplasty and push the moya of the graft up against the aorta and the iliac limbs as well as the overlap. Once we were happy with the position of the graft we then performed another aortogram to evaluate completion of the procedure. At this point the aneurysm appeared to be sealed. There was noted to be a small type II endoleak from the right internal iliac. With the procedure completed we removed the sheaths and closed the bilateral groins with Perclose devices. Pressure was held until we were sure that hemostasis was achieved.The patient left the operation room in satisfactory condition and tolerated the procedure well. All needle and sponge counts were correct at the end of the procedure. Dr. Burt was present and scrubbed for the entire procedure. I attest to the content of the Intraoperative Record and any orders documented therein. Any exceptions are noted below.
[2019-09-06 11:58] LABS: Hematocrit (blood only) 42.1 % (42-52); Hemoglobin 14.4 g/dL (14.0-18.0)
--- NOTE | 2019-09-06 12:13 | Anesthesiology Progress Note ---
Date of Service September 06, 2019 Anesthesia Post Procedure Vital Signs Vital Signs: Temp Pulse Pulse Resp BP BP Pulse Ox 09/06/19 12:00 63 12 114/53 L 96 09/06/19 11:50 71 28 H 117/67 98 09/06/19 11:40 66 26 H 128/59 L 99 09/06/19 11:31 36.3 C L 75 18 139/66 128/79 97 09/06/19 06:48 36.7 C 80 18 152/98 H 160/83 H 96 Pain Intensity Bilateral Groin: Pain Intensity: 0 Transfer of Care Handoff Completed per policy Notes Mental Status: alert / awake / arousable Patient Amnestic to Procedure: Yes Nausea / Vomiting: adequately controlled Pain: adequately controlled Airway Patency, RR, SpO2: stable & adequate BP & HR: stable & adequate Hydration State: stable & adequate Anesthetic Complications: no major complications apparent and Pt Satisfied with anesthetic care Notes: The patient did well. He is awake and comfortable. His vital signs are stable. Postop Hgb was 14.5 and BSG was 145. He will go to the ICU for overnight monitoring. Sign out was given to the executive vice president and chief operating officer in the ICU.
[2019-09-06] MEDS ORDERED: OXYCODONE/ACETAMINOPHEN 5mg/325mg TAB PO PRN (13:10)
[2019-09-06] MEDS ORDERED: D5W AND 1/2NSS 1,000 ML IV SCH (13:10)
[2019-09-06] MEDS ORDERED: ICU PROTOCOL FOR HYPERGLYCEMIA PRN (13:10)
[2019-09-06] MEDS ORDERED: MoRPHine SULFATE 2 MG/ML CARP IV PRN (13:21)
[2019-09-06] MEDS ORDERED: MoRPHine SULFATE 4 MG/ML 1 ML CARP\\VIAL IV PRN (13:22)
[2019-09-06] MEDS ORDERED: PHARMACY GLYCEMIC MGMT CONSULT PRN (13:26)
[2019-09-06] MEDS ORDERED: GLUCOSE 40% GEL 15 GM TUBE PO PRN (13:30)
[2019-09-06] MEDS ORDERED: DEXTROSE 50% 50 ML SYRINGE IV PRN (13:30)
[2019-09-06] MEDS ORDERED: GLUCAGON FOR INJ 1 MG VIAL IM PRN (13:30)
[2019-09-06] MEDS ORDERED: CARBOHYDRATES FOR HYPOGLYCEMIA PO PRN (13:30)
[2019-09-06] MEDS ORDERED: GLUCOSE 10 TABS/TUBE PO PRN (13:30)
--- NOTE | 2019-09-06 13:44 | Pharmacy Report ---
Pharmacy Glycemic Short Note 2 - Date of Service September 06, 2019 - Glycemic Short BSG Results (Last 24 hours): 09/06/19 09/06/19 09/06/19 06:39 06:40 11:35 Glucose 123 H POC Glucose 135 H 145 H 09/06/19 13:31 Glucose POC Glucose 138 H OUTPATIENT ANTIDIABETIC REGIMEN: * Levemir 16 units SQ Q HS * Semaglutide (Ozempic) SQ weekly on Fridays (dose unclear) * Metformin 1gm PO BID * A1c = 7% 08/23/19 ASSESSMENT: * Type 2 diabetic admitted to ICU s/p AAA endovascular repair * A1c 7%, indicating good control prior to admission with current medications * Patient returned from the OR today, may have received dexamethasone in OR - unclear per available records. Maint IVF contains dextrose at 125cc/hr. * BSGs appear well controlled thus far, however ongoing IV dextrose admin with possible IV steroid may lead to rising BSGs * Ozempic given in last 7 days, therefore likely still on board at this time * Plan to resume outpt basal, hold metformin due to recent IV dye - add weight based Novolog per "moderate" stress level. PLAN FOR INPATIENT GLYCEMIC CONTROL: * Hold outpatient oral diabetes medications (metformin, Ozempic) * Basal insulin * Levemir 16 unit Q HS * Bolus insulin * NovoLog per scale ACHS and at 0200 tonight * Goal Range: Low 110 mg/dL - High 140 mg/dL * Correction Factor: 25 mg/dL/unit * Nutritional / Prandial insulin per carb ratio of 1 unit per 10 grams CHO consumed PLAN FOR DISCHARGE: * may resume outpt regimen on discharge if no contraindications present
--- NOTE | 2019-09-06 14:34 | Critical Care Consultation ---
Date of Consultation September 06, 2019 Assessment & Plan (1) AAA (abdominal aortic aneurysm) without rupture: PLAN: Neuro: Postoperative analgesia -Morphine Resp: Tobacco use -Cigars CV: Peripheral vascular disease Abdominal aortic aneurysm -Postop day 0 percutaneous repair Fluids/Renal: Maintenance fluids ordered by primary team -Would anticipate bump in creatinine status post procedure ID: Antibiotics per primary team GI/Nutrition: Heart healthy diet Heme: H&H adequate DVT prophylaxis: Anticipate patient will be ambulatory in less than 24 hours Endocrine: ICU hyperglycemia protocol Vascular access: Peripheral IVs, radial arterial line Code Status: Full code Disposition: ICU (2) Post-operative state: History of Present Illness Reason for Consultation: Postoperative PEVAR repair Requesting Physician: Hector Burt MD Attending Physician: Hector Burt MD History of Present Illness Patient is a 74-year-old male with a significant past medical history of peripheral vascular disease with an abdominal aortic aneurysm, diabetes, hypertension and tobacco use: Cigars who is postoperative day 0 from a percutaneous endovascular abdominal aneurysm repair. He denies pain, nausea, shortness of breath. He has had a small snack and is hoping to sit up in bed shortly. Allergies Allergy/AdvReac Type Severity Reaction Status Date / Time canagliflozin [From Invokana] Allergy Intermediate facial Verified 09/06/19 06:42 swelling lisinopril Allergy Intermediate Cough Verified 09/06/19 06:42 losartan Allergy Intermediate Cough Verified 09/06/19 06:42 azithromycin Allergy Mild Diarrhea Verified 09/06/19 06:42 Home Medications Home Medications Medication Instructions Recorded Confirmed Type Levemir U-100 Insulin 16 unit SUBCUT HS 10/28/18 09/06/19 History Ozempic 5 mg SUBCUT WK 10/28/18 09/06/19 History aspirin 81 mg PO 4XWK 10/28/18 09/06/19 History atorvastatin 20 mg PO HS 10/28/18 09/06/19 History metformin 1,000 mg PO BID 10/28/18 09/06/19 History multivitamin 1 tab PO QAM 10/28/18 09/06/19 History omega 9-gco-efp-fish oil [Fish Oil] 1 cap PO QAM 10/28/18 09/06/19 History potassium gluconate 600 mg PO BID 08/18/19 09/06/19 History saw-vit E-sod pjh-hba-alyf-pyg 1 tab PO QAM 08/18/19 09/06/19 History [Prostate Health] Patient History Medical History Abdominal aortic aneurysm REASON FOR PROCEDURE Diabetes mellitus, type 2 IDDM-WELL CONTROLLED AND STABLE Hearing deficit WEARS HEARING AIDS History of high blood pressure previously on BP meds but discontinued due to good control off meds Hyperlipidemia Osteoarthritis Seasonal allergies Tinnitus Surgical History History of arthroscopy RT KNEE History of cardiac cath 2010= NO STENTS History of colonoscopy History of tonsillectomy and adenoidectomy History of tooth extraction Warthin's tumor WITH REMOVAL Family History Other No significant family history Social History Smoking Status: Current every day smoker Cigarettes Per Day: 4-5 CIGARS PER DAY; Second Hand Exposure: No; Do You Dip or Chew Tobacco: No; Tobacco Cessation Education Requested by Patient: No Hx Alcohol Use: No Hx Substance Use: No Preferred Language: Lithuanian Communication Ability: Effective Legal Compliance Officer Required: No Beliefs That Will Affect Care: None Current Living Situation: Alone Current Living Situation Comment: DAUGHTER Other Information That Helps Us Care for You: No Feels Safe at Home: Yes Safety Concerns: Feels Safe At This Time Review of Systems Review of Systems: All systems reviewed & are unremarkable except as noted in HPI & below Physical Exam Physical Exam: General: Alert. nontoxic. Skin: Warm, dry, Head: Atraumatic Ears, nose, mouth and throat: airway patent Cardiovascular: Normal peripheral perfusion Bilateral pressure dressings in place in the groins, no shadowing Warm distal extremities without tenderness to palpation Respiratory: no respiratory distress Gastrointestinal: Non distended Musculoskeletal: No deformity Results & Data Results & Data ([facility]) Vital Signs (Past 12 Hours) Vital Signs Temp Pulse Pulse Resp BP BP Pulse Ox 09/06/19 14:00 36.6 C 69 16 128/65 96 09/06/19 13:00 36.6 C 72 16 125/70 94 09/06/19 12:30 68 17 115/53 L 96 09/06/19 12:20 64 15 113/50 L 97 09/06/19 12:10 36.8 C 70 17 115/49 L 94 09/06/19 12:00 63 12 114/53 L 96 09/06/19 11:50 71 28 H 117/67 98 09/06/19 11:40 66 26 H 128/59 L 99 09/06/19 11:31 36.3 C L 75 18 139/66 128/79 97 09/06/19 06:48 36.7 C 80 18 152/98 H 160/83 H 96 Coding Level of Care Code 36307 Inpt Consult Level 3 Diagnoses AAA (abdominal aortic aneurysm) without rupture I71.4 Post-operative state Z98.890
[2019-09-06] MEDS ORDERED: SODIUM CHLORIDE 0.45 % 1,000 ML IV SCH (15:45)
[2019-09-06] MEDS: CEFAZOLIN 2000MG 2,000 MG/15 ML SYR IV SCH ×2 (16:23→23:41)
[2019-09-06] MEDS: INSULIN ASPART 100 UNITS/ML 3 ML PEN SC SCH ×2 (16:59→21:22)
[2019-09-06] MEDS ORDERED: ATORVASTATIN 20 MG TAB PO SCH (21:00)
[2019-09-06] MEDS ORDERED: NON-FORMULARY MEDICATION (Potassium Gluconate 600 MG) PO SCH (21:00)
[2019-09-06] MEDS ORDERED: INSULIN DETEMIR FLEXPEN/FLEX TOUCH 100 UNITS/ML 3ML SC SCH (21:00)
[2019-09-07] MEDS ORDERED: INSULIN ASPART 100 UNITS/ML 3 ML PEN SC SCH (02:00)
[2019-09-07 04:42] LABS: Basophils # (auto) 0.01 K/uL (0-0.2); Basophils % (auto) 0.1 %; Eosinophils # (auto) 0.07 K/uL (0-0.5); Eosinophils % (auto) 0.4 %; Hematocrit (blood only) 41.1 % (42-52); Hemoglobin 14.2 g/dL (14.0-18.0); Immature Granulocytes # (auto) 0.06 K/uL (0.00-0.02); Immature Granulocytes % (auto) 0.3 %; Lymphocytes % (auto) 13.5 %; Mean Corpuscular Hemoglobin 31.7 pg (25-34); Mean Corpuscular Hgb Conc 34.5 g/dL (32-36); Mean Corpuscular Volume 91.7 fL (80-100); Mean Platelet Volume 10.3 fL (7.4-10.4); Monocytes # (auto) 1.27 K/uL (0.11-0.59); Monocytes % (auto) 7.1 %; Neutrophils % (auto) 78.6 %; Platelet Count 163 K/uL (130-400); RDW Coefficient of Variation 12.9 % (11.5-14.5); RDW Standard Deviation 43.6 fL (36.4-46.3); Red Blood Count 4.48 M/uL (4.7-6.1); White Blood Count 17.81 K/uL (4.8-10.8)
[2019-09-07 05:01] LABS: BUN Creatinine Ratio 15.9 (10-20); Calcium 8.5 mg/dl (8.5-10.1); Creatinine Clr Calc Pharmacy 50.4 ml/min; Est GFR (African American) 67.7; Est GFR (Non-African American) 58.5; Potassium 4.1 mmol/L (3.5-5.1)
[2019-09-07] MEDS: INSULIN ASPART 100 UNITS/ML 3 ML PEN SC SCH (07:51)
--- NOTE | 2019-09-07 08:15 | Critical Care Progress Note ---
Date of Service September 07, 2019 Assessment & Plan (1) AAA (abdominal aortic aneurysm) without rupture: PLAN: 74 yo M POD1 s/p AAA repair. Neuro: Postoperative analgesia -Morphine Resp: Tobacco use -Cigars CV: Peripheral vascular disease Abdominal aortic aneurysm -Postop day 1 percutaneous repair Fluids/Renal: Maintenance fluids ordered by primary team Cr stable at 1.22 ID: Antibiotics per primary team GI/Nutrition: Heart healthy diet Heme: H&H adequate, stable Hg at 14.2 WBC bumped at 17.81, likely stress reaction. on appropriate antibiotics. DVT prophylaxis: ambulatory ad cesar Endocrine: ICU hyperglycemia protocol Vascular access: Peripheral IVs, radial arterial line Code Status: Full code Disposition: ICU Admission and Anticipated Discharge Date Admission Date: September 06, 2019 Supervising Physician Co-Signing Physician Notes Dr. Baptiste was resident physician during care of patient. I separately evaluated patient for beltran portions of the history and the exam. I was present during the critical portion of medical decision making, and I discussed the case with the resident. I generally agree with the findings and plan. Patient stable for discharge as per vascular surgery. Subjective no complaints this Am. feeling well. able to drink water without issue or nausea/vomiting. Review of Systems Constitutional: no fever, no chills, no body aches and no fatigue Respiratory: no cough and no dyspnea Cardiovascular: no chest pain, no dyspnea, no syncope, no edema, no calf pain and no claudication Gastrointestinal: no abdominal pain, no nausea, no vomiting, no constipation and no diarrhea/loose stools Physical Exam Constitutional: cooperative; no acute distress and not ill appearing Neck: normal visual inspection Respiratory: normal respiratory effort and able to speak in complete sentences; no respiratory distress, no labored breathing, no retractions, no cough and no audible wheezes Auscultation: lungs clear to auscultation bilaterally; no crackles, no rales, no rhonchi and no wheezes Cardiovascular: Rate/Rhythm: regular rate and regular rhythm Heart Sounds: normal S1 and normal S2; no gallop, no murmur and no cardiac rub Vessels: posterior tibial pulses present and popliteal pulses present Extremities: normal capillary refill; no calf tenderness, no pedal edema and no edema Gastrointestinal (Abdomen): Inspection/Auscultation: abdomen normal to inspection and normal bowel sounds; abdomen not distended Percussion/Palpation: abdomen soft; abdomen nontender, no guarding, abdomen not rigid and no abdominal mass Results & Data Results & Data ([facility]) Vital Signs (Past 12 Hours) Vital Signs Temp Pulse Resp BP Pulse Ox 09/07/19 03:07 36.7 C 09/07/19 03:00 83 16 95 09/07/19 02:18 82 16 135/72 94 09/07/19 02:00 76 17 91 09/07/19 01:18 78 18 146/75 H 93 09/07/19 01:00 83 17 93 09/07/19 00:18 83 15 153/67 H 94 09/07/19 00:00 86 16 94 09/06/19 23:42 37.0 C 09/06/19 23:18 79 14 117/58 L 94 09/06/19 23:00 79 14 95 09/06/19 22:18 80 17 117/56 L 95 09/06/19 22:00 85 16 93 09/06/19 21:18 77 17 128/69 96 09/06/19 21:00 81 15 95 09/06/19 20:18 86 15 123/67 97 Laboratory Results WBC 17.81 K/uL (4.8-10.8) H 09/07/19 04:30 RBC 4.48 M/uL (4.7-6.1) L 09/07/19 04:30 Hgb 14.2 g/dL (14.0-18.0) 09/07/19 04:30 Hct 41.1 % (42-52) L 09/07/19 04:30 MCV 91.7 fL (80-100) 09/07/19 04:30 MCH 31.7 pg (25-34) 09/07/19 04:30 MCHC 34.5 g/dL (32-36) 09/07/19 04:30 RDW Std Deviation 43.6 fL (36.4-46.3) 09/07/19 04:30 RDW Coeff of Nafisa 12.9 % (11.5-14.5) 09/07/19 04:30 Plt Count 163 K/uL (130-400) 09/07/19 04:30 MPV 10.3 fL (7.4-10.4) 09/07/19 04:30 Immature Gran % (Auto) 0.3 % 09/07/19 04:30 Neut % (Auto) 78.6 % 09/07/19 04:30 Lymph % (Auto) 13.5 % 09/07/19 04:30 Barren % (Auto) 7.1 % 09/07/19 04:30 Eos % (Auto) 0.4 % 09/07/19 04:30 Baso % (Auto) 0.1 % 09/07/19 04:30 Neut # (Auto) 14.00 K/uL (1.4-6.5) H 09/07/19 04:30 Lymph # (Auto) 2.40 K/uL (1.2-3.4) 09/07/19 04:30 Barren # (Auto) 1.27 K/uL (0.11-0.59) H 09/07/19 04:30 Eos # (Auto) 0.07 K/uL (0-0.5) 09/07/19 04:30 Baso # (Auto) 0.01 K/uL (0-0.2) 09/07/19 04:30 Immature Gran # (Auto) 0.06 K/uL (0.00-0.02) H 09/07/19 04:30 PT 11.3 Seconds (9.0-12.0) 08/23/19 14:10 INR 1.1 (0.9-1.1) 08/23/19 14:10 APTT 33.4 Seconds (21.0-31.0) H 08/23/19 14:10 PTT Ratio 1.2 08/23/19 14:10 Sodium 141 mmol/L (136-145) 09/07/19 04:30 Potassium 4.1 mmol/L (3.5-5.1) 09/07/19 04:30 Chloride 111 mmol/L (98-107) H 09/07/19 04:30 Carbon Dioxide 25 mmol/L (21-32) 09/07/19 04:30 Anion Gap 5.0 (3-11) 09/07/19 04:30 BUN 19 mg/dl (7-18) H 09/07/19 04:30 Creatinine 1.22 mg/dl (0.6-1.4) 09/07/19 04:30 Est Cr Clr Drug Dosing 50.4 ml/min 09/07/19 04:30 Est GFR ( Amer) 67.7 09/07/19 04:30 Est GFR (Non-Af Amer) 58.5 09/07/19 04:30 BUN/Creatinine Ratio 15.9 (-20) 09/07/19 04:30 Glucose 131 mg/dl (70-99) H 09/07/19 04:30 POC Glucose 150 mg/dl (70-99) H 09/07/19 07:19 Estimat Average Glucose 154 mg/dl 08/23/19 14:10 Hemoglobin A1c 7.0 % (4.5-5.6) H 08/23/19 14:10 Calcium 8.5 mg/dl (8.5-10.1) 09/07/19 04:30 Phosphorus 3.0 mg/dl (2.5-4.9) 09/07/19 04:30 Magnesium 2.0 mg/dl (1.8-2.4) 09/07/19 04:30 Nasal Screen MRSA (PCR) Negative (Negative) 09/06/19 13:05 Blood Type O Positive 09/06/19 06:40 Antibody Screen NEGATIVE 09/06/19 06:40 Crossmatch See Detail 09/06/19 06:40 Resident Activity Tracking Resident Involvement: Resident Care Provided Care Provided: Adult Hospital Medicine
[2019-09-07] MEDS ORDERED: SAW VIT E SOD SEL LYC BETA PYG PO SCH (09:00)
[2019-09-07] MEDS ORDERED: OMEGA-3 (PURIFIED FISH OIL) 1 GM CAP PO SCH (09:00)
[2019-09-07] MEDS ORDERED: MULTIVITAMIN TAB PO SCH (09:00)
[2019-09-07] MEDS ORDERED: ASPIRIN 81 MG ECTAB PO SCH (09:00)
--- NOTE | 2019-09-07 09:06 | Surgery Progress Note ---
Date of Service September 07, 2019 Assessment & Plan (1) Post-operative state: Patient doing well D/C today. Subjective No complaints. Spontaneously voided Physical Exam Constitutional: WD/WN, vitals as above Cardiovascular: Vessels: femoral pulses present, posterior tibial pulses present and dorsalis pedis pulses present Gastrointestinal (Abdomen): Inspection/Auscultation: abdomen normal to inspection Percussion/Palpation: abdomen soft; abdomen nontender Skin: + wound (puncture sites clean and dry. no hematoma) Results & Data Vital Signs (Past 12 Hours) Vital Signs Temp Pulse Resp BP Pulse Ox 09/07/19 03:07 36.7 C 09/07/19 03:00 83 16 95 09/07/19 02:18 82 16 135/72 94 09/07/19 02:00 76 17 91 09/07/19 01:18 78 18 146/75 H 93 09/07/19 01:00 83 17 93 09/07/19 00:18 83 15 153/67 H 94 09/07/19 00:00 86 16 94 09/06/19 23:42 37.0 C 09/06/19 23:18 79 14 117/58 L 94 09/06/19 23:00 79 14 95 09/06/19 22:18 80 17 117/56 L 95 09/06/19 22:00 85 16 93 09/06/19 21:18 77 17 128/69 96
--- NOTE | 2019-09-13 12:32 | Discharge Summary ---
Date of Service September 13, 2019 Admission HPI Per Admitting Provider History of Present Illness I the pleasure of seeing Felipe today for evaluation of abdominal aortic aneurysm. As you know he is a 74-year-old gentleman who was being worked up for hematuria. He had a CAT scan of the head which showed a 5.1 cm abdominal aright aneurysm. This is the first seen about this. He has had no symptoms of his aneurysm. He also denies any symptoms of claudication or cerebrovascular suf ficiency. He does have diabetes and hypertension and does have a positive smoking history. Review of Systems Review of systems was obtained of 10 systems. The only positive findings are diabetes hypertension. 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 Rest of the positive findings are as the HPI. Physical Exam On exam the patient is awake alert and oriented x3. He is in no apparent distress. His blood pressure is 140/64 in the right 154/64 in the left. Lungs are clear heart irregular rate and rhythm. Abdominal exam is benign. There is a widened pulsatile mass in the midepigastrium. Vascular exam shows radials carotids 2+ bilaterally. There are no carotid bruits. Femorals are +2 bilaterally. Pedal pulses are palpable +1 bilaterally. There is normal capillary refill both feet. Neurologic exam is intact. Assessment/Plan AAA (abdominal aortic aneurysm) At this point being the aneurysm size of 5.1 cm we recommended repair. The CAT scan shows that he is a good endovascular candidate for repair. We will obtain a stress test preoperatively. We will keep you informed as to his results. Thank you very much let us participate in the care of this patient. Sincerely, Johnathan Burt MD Ordered: Echo Stress, Pharmacologic Problem List/Past Medical History Ongoing AAA (abdominal aortic aneurysm) Atherosclerotic heart disease Diabetes Enlarged lymph node Hyperlipidemia Hypertension Parotid mass Historical No qualifying data Procedure/Surgical History Warthin's tumor removal (2019) Surgery Tonsillectomy and adenoidectomy Medications Inpatient No active inpatient medications Home aspirin 81 mg oral delayed release tablet, 81 mg= 1 tab, PO, Daily EPA Fish Oil 1000 mg oral capsule, Daily insulin detemir 100 units/mL subcutaneous solution, 16 unit, subQ, Daily Lipitor 10 mg oral tablet, 20 mg= 2 tab, PO, qhs metFORMIN, 1000 mg, bid multivitamin, 1 tab, PO, Daily potassium potassium chloride 99 mg oral tablet, 99 mg= 1 tab, PO, bid semaglutide, 0.5 mg, subQ, q7days Tresiba 100 units/mL subcutaneous solution, 20 unit, Daily Allergies Invokana (Swelling - edema - symptom) azithromycin (Diarrhea) lisinopril (Cough) losartan (Cough) Social History Smoking Status - 07/19/2018 Former Smoker, quit > 1 yr Alcohol - Denies Alcohol Use, 07/19/2018 Substance Abuse - Denies Substance Abuse, 07/19/2018 Tobacco Current every day smoker, Cigars, 5 per day., 07/19/2018 Family History Heart attack: Father and Brother. Heart disease: Father and Brother. Signature Line Electronic Signature on File Electronically Reviewed/Signed by: Hector Burt MD Author Signature Dt/Tm:08/14/2019 04:17 PM Motor Racer Jun Sesay [facility] [place], [address] [place] [address] EJS Result Type: Physician Consult Date of Service: August 14, 2019 16:17 EDT Authorization Status: Final Subject: Consult Note Author or Import Date: MD Burt Eugene J on August 14, 2019 16:17 EDT Verified By: MD Burt Eugene J on August 14, 2019 16:17 EDT Encounter info: [id number], [facility], Clinic, 08/14/2019 - 08/14/2019 Admission Exam Per Admitting Provider On exam the patient is awake alert and oriented x3. He is in no apparent distress. His blood pressure is 140/64 in the right 154/64 in the left. Lungs are clear heart irregular rate and rhythm. Abdominal exam is benign. There is a widened pulsatile mass in the midepigastrium. Vascular exam shows radials carotids 2+ bilaterally. There are no carotid bruits. Femorals are +2 bilaterally. Pedal pulses are palpable +1 bilaterally. There is normal c apillary refill both feet. Neurologic exam is intact. Principal Diagnosis Abdominal aortic aneurysm Discharge Exam Constitutional: WD/WN, vitals as above Cardiovascular: Vessels: femoral pulses present, posterior tibial pulses present and dorsalis pedis pulses present Gastrointestinal (Abdomen): Inspection/Auscultation: abdomen normal to inspection Percussion/Palpation: abdomen soft; abdomen nontender Skin: + wound (puncture sites clean and dry. no hematoma) Discharge Data Allergies Allergy/AdvReac Type Severity Reaction Status Date / Time canagliflozin [From Invokana] Allergy Intermediate facial Verified 09/06/19 06:42 swelling lisinopril Allergy Intermediate Cough Verified 09/06/19 06:42 losartan Allergy Intermediate Cough Verified 09/06/19 06:42 azithromycin Allergy Mild Diarrhea Verified 09/06/19 06:42 Consultations 09/06/19 13:10 Consult Metrology Manager Routine Procedures Performed Operation Date: 09/06/19 08:25 Actual Procedures p Percutaneous Endovascular Aneurysm Repair(Bilateral) - Hector Burt MD Ordered Studies 09/06/19 07:18 EV AAA repair aorta only Routine US EV guide vascular access Routine Total Time Total Time Spent Total Time Spent (In Minutes): >30 Discharge Plan Discharge Items Patient Disposition: Home - Self-Care Reason For Visit: Abdominal Aortic Aneurysm Discharge Diagnosis: Abdomninal aortic aneurysm Activity: Per Instructions section Lifting: Gradually increase as tolerated Bathing: No limitations Non-emergency contact: Surgeon Call non-emergency contact if: your temperature is above 101.5, your wound has increased redness, your wound has increased drainage and your wound pain has increased Follow-up/Referrals: Montserrat Snell PA-C [Primary Care Provider] - Diet: Carb Consistent or DM2 and Heart Healthy Addtl Attending Provider Instructions: SPECIAL CARE INSTRUCTIONS: Medications: * Continue to take your medications as directed. Incision/Puncture Site Care: * You will have an incision or puncture in each of your groins. Liquid glue will be used to seal your incisions/puncture site. This will lift off as the incisions/puncture sites heal. * If Liquid glue is not used, there will be small dressings covering your incisions. After you get home, you may remove the dressings and shower - allowing the warm soapy water to run over it. * Be sure to dry the sites well and keep them dry. * DO NOT SOAK IN A TUB/POOL/etc. UNTIL ALL SURGICAL SITES ARE HEALED. DO NOT REMOVE THE GLUE UNTIL THE INCISIONS HEAL. 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 * You may walk and go up and down steps. * Avoid excessive bending or movement at the level of the incisions or punctures. Risks and Possible Complications: * Infection/Drainage/Bleeding - Drainage or bleeding from the incisions/puncture site should be minimal. If you have excessive bleeding or drainage, call our office ([phone]) right away. * Pain/Numbness - You may experience some mild pain or soreness at your inci edith sites. You may also have some numbness around the incisions or into the insides of your thighs. Bruising is normal and should resolve within 2 weeks. * Changes in Appetite or Bowel Habits - Mostly related to anesthesia and pain medication, some patients have reported decreased appetite and/or problems with constipation. These symptoms usually improve over a few weeks. Remembering to take an [id number] stool softener, as directed, will help you to avoid constipation. Call our office and seek emergent treatment if you develop: * Fever or chills * Have a temperature greater than 101 degrees F * Any redness or purulent drainage from your incisions or punctures * Severe abdominal, chest or back pain SKIN IRRITATION: * You may experience some redness and/or swelling in the area where radiation was administered. If any skin irritation occurs, please contact your family physician. You will be receiving a call from the Vascular Surgery Nurse after you are discharged. FOLLOW UP VISIT: It is important for you to keep your follow up appointments with your medical provider. Keep any scheduled doctor appointments. Call [phone] to schedule a follow up appointment if one not already scheduled. Pending Studies at Discharge: No Stand-Alone Forms: My [facility], Smoking Cessation Medications and DC Order Prescriptions: New oxycodone-acetaminophen [Percocet] 5-325 mg tablet 1 tab PO Q6H PRN (Reason: pain) Qty: 10 RF: 0 Continued potassium gluconate 600 mg (99 mg) Tablet 600 mg PO BID RF: 0 Prostate Health 160-100-100 mg-unit-mcg Tablet 1 tab PO QAM RF: 0 multivitamin Tablet 1 tab PO QAM RF: 0 atorvastatin 10 mg Tablet 20 mg PO HS RF: 0 metformin 1,000 mg Tablet 1,000 mg PO BID RF: 0 Levemir U-100 Insulin 100 unit/mL Solution 16 unit SUBCUT HS RF: 0 omega 4-fit-bam-fish oil [Fish Oil] 1,000 mg (120 mg-180 mg) Capsule 1 cap PO QAM RF: 0 Ozempic 0.25 mg or 0.5 mg(2 mg/1.5 mL) Pen Injector 5 mg SUBCUT WK RF: 0 aspirin 81 mg Tablet,Delayed Release (Dr/Ec) 81 mg PO 4XWK RF: 0 Discharge Orders: Discharge Order (Routine); Ordered 09/07/19 Ordered By: Hector Burt Admission Data Admit Date/Time: 09/06/19 09:17 Attending Provider: Hector Burt Admit Provider: Hector Burt Primary Care Provider: Montserrat Snell Other Providers: Maikel Vargas ; Peter Garcia ; Kee Mcelroy ; Toni Rodriguez ; Jethro Dean ; Aguilar Cerda ; Jackie Moscoso Other Interventions: Discharge Summary Assessment (RN) Last Done: 09/07/19 09:57 DC Date/Time DO NOT enter until pt leaves facility: 09/07/19 10:20
--- NOTE | 2019-09-18 13:09 | Billing Data ---
Date of Service September 07, 2019 Coding Level of Care Code 93435 Subseq Hosp Care Lvl 1
== END 2019-09-07 10:20 | disposition home or self-care (01) | DRG 254 ==
LOC: ASU 06:19 → 1E 09:17

== ENCOUNTER 2022-03-07 07:27 | Inpatient (IN) ==
[2022-03-07] MEDS: SODIUM CHLORIDE 0.9% 1000ML 1,000 ML IV SCH ×2 (07:48→14:21)
--- NOTE | 2022-03-07 07:55 | Emergency Department Note ---
Impression & Plan Acute CVA (cerebrovascular accident), Fall, Dizziness ED Provider Note ED Provider Note NAME: ELIER QUIJANO AGE:76 SEX: Male : 1945 ARRIVES VIA: Private vehicle INFORMANT: Patient and family ED PROVIDER(s): Marisol Ferrell DO CHIEF COMPLAINT: Strokelike symptoms HPI: This is a 76-year-old male presents with family at bedside due to concern for worsening strokelike symptoms. Patient and family provide history. Patient states he began feeling dizzy on evening, and feeling as though he was off balance and it was hard to walk. He states yesterday throughout the day he was feeling more unsteady and family began to notice difficulty with speech. Patient was brought in last night for evaluation however refused admission and left AMA. Family states at that point patient was already beginning to notice some increased right-sided weakness. This morning upon awakening patient tried to stand and get out of bed and fell. He does not believe he struck his head. Family states that at this point this morning they noticed that he had increased right-sided weakness, facial droop, worsening speech difficulty and increased difficulty walking. Patient does take low-dose aspirin daily, no other antic oagulation. Patient denies any concern for injury related to the fall this morning. PAST MEDICAL HISTORY:See Below PAST SURGICAL HISTORY:See Below FAMILY HISTORY:See Below SOCIAL HISTORY:See Below HOME MEDICATIONS:See Below ALLERGIES:See Below VITALS:See Below PHYSICAL EXAMINATION: GENERAL: alert, well appearing, well nourished, no distress, non-toxic EYE EXAM: normal conjunctiva, PERRL and EOM's grossly intact OROPHARYNX: no exudate, no erythema, lips, buccal mucosa, and tongue normal and mucous membranes are moist NECK: supple, no nuchal rigidity, no adenopathy, non-tender LUNGS: Clear to auscultation. Normal chest wall mechanics, no w/r/r HEART: no murmurs, S1 normal and S2 normal ABDOMEN: abdomen soft, non-tender, normo-active bowel sounds, no masses, no rebound or guarding. BACK: Back is symmetrical on inspection and there is no deformity, no midline tenderness, no CVA tenderness. SKIN: no rashes, petechiae, orbruising UPPER EXTREMITIES: upper extremities are grossly normal. FROM, nml pulses b/l. LOWER EXTREMITIES: No pitting edema. FROM, nml pulses b/l. NEURO EXAM: Normal sensorium, cranial nerves II-XII grossly intact, slurred speech, right facial droop,decreased strength to the right upper and right lower extremity compared to the left, mild ataxia noted to right upper and right lower extremity however they do not immediately drop to the bed, gross sensation intact. NIHSS 7 Vital Signs: reviewed and remarkable Differential Diagnosis: Differential Diagnosis includes but is not limited to ischemic Stroke, hemorrhagic stroke, bells palsy, mass, neoplasm, migraine headache, seizure, subarachnoid hemorrhage, TIA, and transient global amnesia. MEDICAL DECISION MAKING: This is a 76-year-old male brought in by family due to concern for evolving stroke. Patient first began noticing atypical symptoms evening per his report. He was brought here last evening, seen and evaluated and underwent labs as well as CT/CTA however refused admission and left AMA. Patient now presents with family due to worsening strokelike symptoms. IV established, labs drawn and sent, EKG performed, patient placed on telemetry, sent for repeat head CT and chest x-ray. Patient with right-sided weakness, facial droop, and slurred speech on exam. Family also states patient with difficulty walking and patient reports feeling dizzy and off balance. Patient's vital signs were stable. I did review prior evaluation 12 hours prior and reviewed prior ER note. Keke scussed with patient admission and he was in agreement. Case discussed with hospitalist team for additional evaluation and management. Patient does use aspirin, no anticoagulation. Patient with multiple risk factors for CVA. Patient did report mild fall while trying to get out of bed this morning, no evidence of trauma on physical exam. I below suspicion for occult traumatic injury. Consultation(s): 1048: Discussed with Ruth Chase hospitalist team. ER Treatment Provided: See below Diagnostics Interpreted By Me: -ECG: Normal sinus at 79, normal QRS and QTc, left axis deviation, nonspecific ST/T wave changes -Cardiac Monitoring: An order was placed for continuous cardiac monitoring. The monitor shows a rate of [] with [] rhythm. -Laboratory studies: As stated above and show below. -Imaging studies: CT head, chest x-ray Triage Nursing Note Reviewed Prior/Outside Records Reviewed -including last night's evaluation Procedures: [] Critical Care: [] Past Med/Surg History Medical History (Updated 03/07/22 @ 13:14 by DIEUDONNE Wiseman) Abdominal aortic aneurysm found during CAT scan for hematuria - 5.1cm - Repaired by Dr. Burt 09/06/19 - no hospital monitor - Follows with [facility] BPH (benign prostatic hyperplasia) BPH (benign prostatic hyperplasia) CAD (coronary artery disease) Diabetes mellitus, type 2 IDDM-WELL CONTROLLED AND STABLE Hearing deficit WEARS HEARING AIDS Hyperlipidemia Hypertension Osteoarthritis Seasonal allergies Stroke-like symptoms Tinnitus Surgical History History of AAA (abdominal aortic aneurysm) repair Dr. 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 Family History Other No significant family history Social History Smoking Status: Current every day smoker Tobacco Type: Cigars Cigarettes Per Day: 3-4; Second Hand Exposure: No; Do You Dip or Chew Tobacco: No; Tobacco Cessation Education Requested by Patient: No Hx Alcohol Use: No Hx Substance Use: No Preferred Language: Mauritian Communication Ability: Effective [employer] Required: No Beliefs That Will Affect Care: None Current Living Situation: Family Current Living Situation Comment: Daughter Other Information That Helps Us Care for You: No Feels Safe at Home: Yes Safety Concerns: Feels Safe At This Time Assistive Devices: Cane, Denture - Lower, Glasses and Hearing Aid - Bilateral Allergies Allergies Allergy/AdvReac Type Severity Reaction Status Date / Time canagliflozin [From Invokana] Allergy Intermediate facial Verified 08/28/21 12:33 swelling lisinopril Allergy Intermediate Cough Verified 08/28/21 12:33 losartan Allergy Intermediate Cough Verified 08/28/21 12:33 azithromycin Allergy Mild Diarrhea Verified 08/28/21 12:33 Home Meds Home Medications Medication Instructions Recorded Confirmed aspirin 81 mg tablet,delayed 81 mg PO 4XWK 10/28/18 03/07/22 release atorvastatin 10 mg tablet 20 mg PO HS 10/28/18 03/07/22 insulin detemir U-100 100 unit/mL 14 unit subcut HS 10/28/18 03/07/22 subcutaneous solution (Levemir U-100 Insulin) metformin 1,000 mg tablet 1,000 mg PO BID 10/28/18 03/07/22 multivitamin 1 tab PO QAM 10/28/18 03/07/22 omega 9-vhf-omx-fish oil 1,000 mg 1 cap PO QAM 10/28/18 03/07/22 (120 mg-180 mg) capsule (Fish Oil) semaglutide 0.25 mg or 0.5 mg (2 5 mg subcut WK 10/28/18 03/07/22 mg/1.5 mL) subcutaneous pen injector (Ozempic) potassium gluconate 600 mg (99 mg) 600 mg PO BID 08/18/19 03/07/22 tablet saw palm 160 mg-vit E 100 1 tab PO QAM 08/18/19 03/07/22 unit-selen 100 yen-vpfe-fhmxgp-pygeum tablet (Prostate Health) metoprolol tartrate 25 mg tablet 12.5 mg PO BID 08/28/21 03/07/22 cilostazol 50 mg tablet 50 mg PO 1XD 09/05/21 03/07/22 finasteride 5 mg tablet 5 mg PO DAILY 09/05/21 03/07/22 Results & Data (ED) Vital Signs Vital Signs - 24 hr 03/07/22 07:29 03/07/22 07:30 03/07/22 07:44 Temperature 36.8 C Temperature Source Temporal Artery Scan Pulse Rate 85 80 Pulse Rate from SpO2 Sensor 82 Respiratory Rate 14 24 Blood Pressure 169/82 H Blood Pressure Mean 111 Pulse Oximetry 95 95 Oxygen Delivery Method Room Air Sepsis Recent Fever Within 48 Hours No Sepsis New/Unexplained Change in Mental Status No Sepsis Action Taken by Nursing No Action Required 03/07/22 08:21 03/07/22 08:30 03/07/22 08:33 Temperature Temperature Source Pulse Rate 76 74 Pulse Rate from SpO2 Sensor 75 Respiratory Rate 19 20 Blood Pressure 141/77 H Blood Pressure Mean 98 Pulse Oximetry 97 Oxygen Delivery Method Sepsis Recent Fever Within 48 Hours Sepsis New/Unexplained Change in Mental Status Sepsis Action Taken by Nursing 03/07/22 08:33 03/07/22 09:00 03/07/22 09:00 Temperature Temperature Source Pulse Rate 71 66 Pulse Rate from SpO2 Sensor 70 68 Respiratory Rate 22 17 Blood Pressure 146/80 H Blood Pressure Mean 102 Pulse Oximetry 96 95 Oxygen Delivery Method Sepsis Recent Fever Within 48 Hours Sepsis New/Unexplained Change in Mental Status Sepsis Action Taken by Nursing 03/07/22 09:30 03/07/22 09:30 03/07/22 10:00 Temperature Temperature Source Pulse Rate 68 Pulse Rate from SpO2 Sensor 70 Respiratory Rate 17 Blood Pressure 168/94 H 145/77 H Blood Pressure Mean 118 99 Pulse Oximetry 96 Oxygen Delivery Method Sepsis Recent Fever Within 48 Hours Sepsis New/Unexplained Change in Mental Status Sepsis Action Taken by Nursing 03/07/22 10:00 03/07/22 10:30 03/07/22 10:30 Temperature Temperature Source Pulse Rate 59 L 66 Pulse Rate from SpO2 Sensor 58 L 66 Respiratory Rate 16 14 Blood Pressure 162/84 H Blood Pressure Mean 110 Pulse Oximetry 98 97 Oxygen Delivery Method Sepsis Recent Fever Within 48 Hours Sepsis New/Unexplained Change in Mental Status Sepsis Action Taken by Nursing Laboratory Data 03/07/22 07:45 03/07/22 07:45 Lab Results 03/07/22 03/07/22 03/07/22 Range/Units 07:45 07:45 07:45 WBC 12.60 H (4.8-10.8) K/ul RBC 5.32 (4.63-6.08) M/uL Hgb 17.3 (14.0-18.0) g/dl Hct 49.1 (40.1-51.0) % MCV 92.3 (80.0-100.0) fL MCH 32.5 (25.0-34.0) pg MCHC 35.2 (32.0-36.0) g/dL RDW Std Deviation 43.0 (36.4-46.3) fL RDW Coeff of Nafisa 12.6 (11.5-14.5) % Plt Count 177 (130-400) K/uL MPV 10.1 (9.4-12.4) fL Immature Gran % (Auto) 0.5 % Neut % (Auto) 74.7 % Lymph % (Auto) 15.5 % [place] % (Auto) 6.3 % Eos % (Auto) 2.5 % Baso % (Auto) 0.5 % Neut # (Auto) 9.41 H (1.4-6.5) K/uL Lymph # (Auto) 1.95 (1.2-3.4) K/uL [place] # (Auto) 0.80 (0.24-0.82) K/uL Eos # (Auto) 0.32 (0-0.50) K/uL Baso # (Auto) 0.06 (0-0.2) K/uL Immature Gran # (Auto) 0.06 H (0.00-0.02) K/uL ESR (0-20) mm/hr PT 11.5 (9.0-12.0) Seconds INR 1.1 (0.9-1.1) Sodium 139 (136-145) mmol/L Potassium 4.1 (3.5-5.1) mmol/L Chloride 106 (98-107) mmol/L Carbon Dioxide 26 (21-32) mmol/L Anion Gap 7 (3-11) BUN 25 H (6-23) mg/dl Creatinine 1.35 (0.6-1.4) mg/dl Est Cr Clr Drug Dosing 45.7 ml/min Est GFR ( Amer) 59.1 ml/min Est GFR (Non-Af Amer) 51.0 ml/min BUN/Creatinine Ratio 18.5 (10-20) Glucose 159 H (70-99(Fasting)) mg/dl Calcium 10.0 (8.5-10.1) mg/dl Magnesium 1.9 (1.7-2.4) mg/dl Total Bilirubin 0.7 (0.2-1.0) mg/dl AST 16 (13-39) U/L ALT 17 (7-52) U/L Alkaline Phosphatase 78 (34-104) U/L Troponin I High Sens 6.3 (0-20) pg/ml Total Protein 7.2 (6.0-8.3) gm/dl Albumin 4.5 (3.4-5.0) gm/dl Globulin 2.7 (2.5-4.0) gm/dl Albumin/Globulin Ratio 1.7 (0.9-2) Lipase 52 (11-82) U/L TSH (0.300-4.500) uIu/ml Free T4 (0.61-1.60) ng/dl SARS-CoV-2 (PCR) (Negative) Influenza Type A (PCR) (Neg) Influenza Type B (PCR) (Neg) RSV (RT-PCR) (Neg) 03/07/22 03/07/22 03/07/22 Range/Units 07:45 07:45 07:45 WBC (4.8-10.8) K/ul RBC (4.63-6.08) M/uL Hgb (14.0-18.0) g/dl Hct (40.1-51.0) % MCV (80.0-100.0) fL MCH (25.0-34.0) pg MCHC (32.0-36.0) g/dL RDW Std Deviation (36.4-46.3) fL RDW Coeff of Nafisa (11.5-14.5) % Plt Count (130-400) K/uL MPV (9.4-12.4) fL Immature Gran % (Auto) % Neut % (Auto) % Lymph % (Auto) % [place] % (Auto) % Eos % (Auto) % Baso % (Auto) % Neut # (Auto) (1.4-6.5) K/uL Lymph # (Auto) (1.2-3.4) K/uL [place] # (Auto) (0.24-0.82) K/uL Eos # (Auto) (0-0.50) K/uL Baso # (Auto) (0-0.2) K/uL Immature Gran # (Auto) (0.00-0.02) K/uL ESR 16 Cancelled (0-20) mm/hr PT (9.0-12.0) Seconds INR (0.9-1.1) Sodium (136-145) mmol/L Potassium (3.5-5.1) mmol/L Chloride (98-107) mmol/L Carbon Dioxide (21-32) mmol/L Anion Gap (3-11) BUN (6-23) mg/dl Creatinine (0.6-1.4) mg/dl Est Cr Clr Drug Dosing ml/min Est GFR ( Amer) ml/min Est GFR (Non-Af Amer) ml/min BUN/Creatinine Ratio (10-20) Glucose (70-99(Fasting)) mg/dl Calcium (8.5-10.1) mg/dl Magnesium (1.7-2.4) mg/dl Total Bilirubin (0.2-1.0) mg/dl AST (13-39) U/L ALT (7-52) U/L Alkaline Phosphatase (34-104) U/L Troponin I High Sens (0-20) pg/ml Total Protein (6.0-8.3) gm/dl Albumin (3.4-5.0) gm/dl Globulin (2.5-4.0) gm/dl Albumin/Globulin Ratio (0.9-2) Lipase (11-82) U/L TSH 5.533 H (0.300-4.500) uIu/ml Free T4 1.14 (0.61-1.60) ng/dl SARS-CoV-2 (PCR) (Negative) Influenza Type A (PCR) (Neg) Influenza Type B (PCR) (Neg) RSV (RT-PCR) (Neg) 03/07/22 Range/Units 09:23 WBC (4.8-10.8) K/ul RBC (4.63-6.08) M/uL Hgb (14.0-18.0) g/dl Hct (40.1-51.0) % MCV (80.0-100.0) fL MCH (25.0-34.0) pg MCHC (32.0-36.0) g/dL RDW Std Deviation (36.4-46.3) fL RDW Coeff of Nafisa (11.5-14.5) % Plt Count (130-400) K/uL MPV (9.4-12.4) fL Immature Gran % (Auto) % Neut % (Auto) % Lymph % (Auto) % [place] % (Auto) % Eos % (Auto) % Baso % (Auto) % Neut # (Auto) (1.4-6.5) K/uL Lymph # (Auto) (1.2-3.4) K/uL [place] # (Auto) (0.24-0.82) K/uL Eos # (Auto) (0-0.50) K/uL Baso # (Auto) (0-0.2) K/uL Immature Gran # (Auto) (0.00-0.02) K/uL ESR (0-20) mm/hr PT (9.0-12.0) Seconds INR (0.9-1.1) Sodium (136-145) mmol/L Potassium (3.5-5.1) mmol/L Chloride (98-107) mmol/L Carbon Dioxide (21-32) mmol/L Anion Gap (3-11) BUN (6-23) mg/dl Creatinine (0.6-1.4) mg/dl Est Cr Clr Drug Dosing ml/min Est GFR ( Amer) ml/min Est GFR (Non-Af Amer) ml/min BUN/Creatinine Ratio (10-20) Glucose (70-99(Fasting)) mg/dl Calcium (8.5-10.1) mg/dl Magnesium (1.7-2.4) mg/dl Total Bilirubin (0.2-1.0) mg/dl AST (13-39) U/L ALT (7-52) U/L Alkaline Phosphatase (34-104) U/L Troponin I High Sens (0-20) pg/ml Total Protein (6.0-8.3) gm/dl Albumin (3.4-5.0) gm/dl Globulin (2.5-4.0) gm/dl Albumin/Globulin Ratio (0.9-2) Lipase (11-82) U/L TSH (0.300-4.500) uIu/ml Free T4 (0.61-1.60) ng/dl SARS-CoV-2 (PCR) NEGATIVE (Negative) Influenza Type A (PCR) Negative (Neg) Influenza Type B (PCR) Negative (Neg) RSV (RT-PCR) Negative (Neg) Administered Medications Discontinued Medications Sodium Chloride (Nss 1000ml) 1,000 mls @ 125 mls/hr IV .Q8H CRISTHIAN Stop: 04/06/22 07:44 Last Admin: 03/07/22 14:21 Dose: 125 mls/hr Documented By: Infusion: 03/07/22 14:21 Dose: 0 mls/hr Documented By: Admin: 03/07/22 07:48 Dose: 125 mls/hr Documented By: ZULMA Acetaminophen (Ofirmev) 1,000 mg in 100 mls @ 400 mls/hr IV NOW STA Stop: 03/07/22 09:15 Last Infusion: 03/07/22 09:35 Dose: 0 mls/hr Documented By: Admin: 03/07/22 09:20 Dose: 400 mls/hr Documented By: AP Imaging Data Radiologist's Impression: Chest X-Ray 03/07/22 07:46 XR chest 1V portable CLINICAL HISTORY: weakness TECHNIQUE: Single frontal radiograph of the chest was obtained. Comparison: Comparison is made to chest radiograph 08/23/2019 FINDINGS: No lines and tubes are seen. Calcified aortic knob is seen. The lungs are clear. No evidence of pleural effusion or pneumothorax. IMPRESSION: No acute abnormalities and in particular no evidence of pneumonia. ACT 112: Negative or not required by law. Electronically signed by: Edward Valiente M.D. 03/07/2022 8:[address] 03/07/22 07:46 CT head/brain wo con CLINICAL HISTORY: fall, stroke like symptoms Technique: Contiguous axial CT images of the head were acquired from the base of the skull to the vertex without intravenous contrast administration. Images were viewed in brain, subdural and bone windows. Automated dose lowering techniques and/or adjustment according to patient size were utilized for this exam. Comparison: Comparison is made to CT head 03/06/2022 Findings: The ventricles, basal cisterns, and cerebral sulci are normal. There is no acute intracranial hemorrhage or evidence of acute territorial infarction. Neither mass effect, shift of the midline structures, nor abnormal extra-axial fluid co llections are shown. Imaged portions of the paranasal sinuses and mastoid air cells are clear. The orbits appear normal. There are no acute fractures of the calvaria or scalp swelling. Impression: No acute intracranial hemorrhage, no evidence of acute territorial infarction or other acute intracranial disease process. ACT 112: Negative or not required by law. Electronically signed by: Edward Valiente M.D. 03/07/2022 8:29 AM Discharge Plan Visit Data Chief Complaint: Stroke/CVA Symptoms Stated Complaint: STROKE ED Provider: Marisol Ferrell Discharge Problem: Acute CVA (cerebrovascular accident), Fall, Dizziness Patient Disposition: Admitted As Inpatient Discharge Instructions Interventions: ED Discharge Assessment Last Done: 03/07/22 12:43
[2022-03-07 07:58] LABS: Basophils # (auto) 0.06 K/uL (0-0.2); Basophils % (auto) 0.5 %; Eosinophils # (auto) 0.32 K/uL (0-0.50); Eosinophils % (auto) 2.5 %; Hematocrit (blood only) 49.1 % (40.1-51.0); Hemoglobin 17.3 g/dl (14.0-18.0); Immature Granulocytes # (auto) 0.06 K/uL (0.00-0.02); Immature Granulocytes % (auto) 0.5 %; Lymphocytes # (auto) 1.95 K/uL (1.2-3.4); Lymphocytes % (auto) 15.5 %; Mean Corpuscular Hemoglobin 32.5 pg (25.0-34.0); Mean Corpuscular Hgb Conc 35.2 g/dL (32.0-36.0); Mean Corpuscular Volume 92.3 fL (80.0-100.0); Mean Platelet Volume 10.1 fL (9.4-12.4); Monocytes % (auto) 6.3 %; Neutrophils # (auto) 9.41 K/uL (1.4-6.5); Neutrophils % (auto) 74.7 %; Platelet Count 177 K/uL (130-400); RDW Coefficient of Variation 12.6 % (11.5-14.5); Red Blood Count 5.32 M/uL (4.63-6.08)
[2022-03-07 08:09] LABS: INR 1.1 (0.9-1.1); Prothrombin Time 11.5 Seconds (9.0-12.0)
--- NOTE | 2022-03-07 08:24 | XRay Report ---
XR chest 1V portable CLINICAL HISTORY: weakness TECHNIQUE: Single frontal radiograph of the chest was obtained. Comparison: Comparison is made to chest radiograph 08/23/2019 FINDINGS: No lines and tubes are seen. Calcified aortic knob is seen. The lungs are clear. No evidence of pleur al effusion or pneumothorax. IMPRESSION: No acute abnormalities and in particular no evidence of pneumonia. ACT 112: Negative or not required by law. Electronically signed by: Edward Valiente M.D. 03/07/2022 8:22 AM
[2022-03-07 08:26] LABS: Troponin I High Sensitivity 6.3 pg/ml (0-20)
--- NOTE | 2022-03-07 08:30 | CT Scan Report ---
CT head/brain wo con CLINICAL HISTORY: fall, stroke like symptoms Technique: Contiguous axial CT images of the head were acquired from the base of the skull to the johnny prasad without intravenous contrast administration. Images were viewed in brain, subdural and bone [facility]. Automated dose lowering techniques and/or adjustment according to patient size were utilized for this exam. Comparison: Comparison is made to CT head 03/06/2022 Findings: The ventricles, basal cisterns, and cerebral sulci are normal. There is no acute intracranial hemorrh age or evidence of acute territorial infarction. Neither mass effect, shift of the midline structures , nor abnormal extra-axial fluid collections are shown. Imaged portions of the paranasal sinuses and mastoid air cells are clear. The orbits appear normal. There are no acute fractures of the calvaria or scalp swelling. Impression: No acute intracranial hemorrhage, no evidence of acute territorial infarction or other acute intracra nial disease process. ACT 112: Negative or not required by law. Electronically signed by: Edward Valiente M.D. 03/07/2022 8:29 AM
[2022-03-07 08:31] LABS: Albumin Level 4.5 gm/dl (3.4-5.0); Bilirubin,Total 0.7 mg/dl (0.2-1.0); Magnesium 1.9 mg/dl (1.7-2.4); Potassium 4.1 mmol/L (3.5-5.1)
[2022-03-07 08:34] LABS: Thyroid Stimulating Hormone 5.533 uIu/ml (0.300-4.500)
[2022-03-07 08:37] LABS: Albumin Globulin Ratio 1.7 (0.9-2); BUN Creatinine Ratio 18.5 (10-20); Creatinine Clr Calc Pharmacy 45.7 ml/min; Est GFR (African American) 59.1 ml/min; Globulin 2.7 gm/dl (2.5-4.0); Total Protein 7.2 gm/dl (6.0-8.3)
[2022-03-07] MEDS ORDERED: ACETAMINOPHEN 1,000 MG/100 ML VIAL IV STA (09:01)
[2022-03-07 09:13] LABS: T4 Free Thyroxine 1.14 ng/dl (0.61-1.60)
[2022-03-07 10:11] LABS: Influenza A virus by PCR Negative (Neg); Influenza B virus by PCR Negative (Neg); RSV by PCR Negative (Neg); SARS CoV2 RNA(COVID-19) Ceph NEGATIVE (Negative)
[2022-03-07] MEDS ORDERED: PHARMACIST DISCHARGE MED REC CONSULT PRN (10:52)
[2022-03-07] MEDS ORDERED: ONDANSETRON INJ 2 MG/ML 2 ML VIAL IV PRN (11:00)
[2022-03-07] MEDS ORDERED: ACETAMINOPHEN 325 MG TAB PO PRN (11:00)
[2022-03-07] MEDS ORDERED: POLYETHYLENE (MIRALAX) 17 GM PACK PO PRN (11:00)
[2022-03-07] MEDS ORDERED: MAGNESIUM HYDROXIDE SUSP 30 ML UDC PO PRN (11:00)
[2022-03-07] MEDS ORDERED: ALUMINUM/MAGNESIUM SUSP 30 ML UDC PO PRN (11:00)
--- NOTE | 2022-03-07 11:12 | History & Physical Report ---
Date of Service March 07, 2022 Assessment & Plan (1) Stroke-like symptoms: (2) Diabetes mellitus, type 2: (3) Hyperlipidemia: (4) CAD (coronary artery disease): (5) BPH (benign prostatic hyperplasia): Plan 76-year-old stroke-like symptoms started on . The patient was in the ED last evening until 2300 when he signed out AMA after he decided he wanted to go home. He was having unsteadiness with ambulation and then this morning experienced a fall without hitting his head and more right sided facial droop and speech difficulties with aphasia. At baseline the patient is fully independent, just last week he was cutting trees down. He does at times use a cane for walking assistance. At baseline he takes a baby aspirin and low-dose statin. head CT and CTA negative. MRI unremarkable. Outside thrombolytics window. Stroke order set placed; await further Neuro consult for recommendations; suspect with atherosclerotic changes, patient having TIA. Stroke Like Symptoms: TIA: Symptoms started with ataxia gait This morning facial droop and aphasia; coupled with fall -head CT and CTA were unremarkable. Some high-grade stenosis was noted with arthrosclerotic changes. -Last known time being well was AM; outside the window for thrombolytic intervention -Stroke order set placed; neuro consult placed -Takes atorvastatin 20 mg and ASA 81 mg; continue for now await further recommendations by neuro -NIHSS 8 -MRI unremarkable; orbital x-ray obtained and negative as he had metal placed in his eyes in the past -PT/OT -Multiple risk factors including active smoking, DM, HDL, CAD; patient father and brother status post AMI -Last echo 2010 as outlined below; echo pending DM2: -Blood sugars range 1 60-1 80 -Takes metformin, Ozempic (injections on Fridays- missed yesterday) -Takes Levemir 14 units nightly -We will hold all home diabetic medications and place on AC at bedtime FSBS with SSI -Glycemic pharmacy consult placed for long-acting insulin assistance -A1c in a.m. CAD: H/O AAA: HTN: -Repaired by Dr. Burt in 2019 -Last echo 2010; EF 60 to 65%, G1 diastolic dysfunction, normal wall motion -Takes Cilostazol; hold for now -Takes metoprolol 12.5 mg p.o. twice daily; continue for now -BP 145/82 in ED HLD: -Takes atorvastatin 20 mg; continue for now and await neuro recommendations -Lipid panel pending Disposition: PCP: Dr. Aguilera with [facility] Code Status: Full code VTE Prophylaxis: SCDs and teds for now pending diagnostic imaging A total of 87 minutes was spent with greater than 50% of that time personally reviewing all current laboratory work and diagnostic imaging studies obtained in the ED. Additionally, I was able to review the patients past medication reconciliation and history with direct visualization in the patients chart. Included in the time above, a portion of that time was spent assessing the patient while discussing and collaborating with specialists, if necessary, and making medical decisions regarding orders to be placed. All of the aforementioned completed while collaborating with Dr. Marino for a full treatment plan. Please see his addendum for further details. History of Present Illness Chief Complaint: stroke like symptoms Primary Care Provider: Montserrat Aguilera PA-C Mr. Ward is a 76-year-old male who presented to the [facility] with his daughter Meagan after concern for stroke-like symptoms that appear to begin on . The patient was in the ED last evening until 0 when he signed out AMA after he decided he wanted to go home. He was having unsteadiness with ambulation and then this morning experienced a fall without hitting his head and more right sided facial droop and speech difficulties with aphasia. At baseline the patient is fully independent, just last week he was cutting trees down. He does at times use a cane for walking assistance. At baseline he takes a baby aspirin and low-dose statin. Last evening head CT and CTA were negative for embolic or hemorrhagic stroke. Some high-grade stenosis was noted with arthrosclerotic changes. His last known time being well is outside the window for thrombolytic intervention. Patient denies headache, dizziness, visual or auditory changes, shortness of breath, chest pain, palpitations, abdominal pain, appetite changes or recent trauma. Patient has right-sided facial droop, expressive aphasia, right greater than left weakness NIH on exam 8. Patient will be admitted for further evaluation and management. Please see A/P for further details. Allergies Allergy/AdvReac Type Severity Reaction Status Date / Time canagliflozin [From Invokana] Allergy Intermediate facial Verified 08/28/21 12:33 swelling lisinopril Allergy Intermediate Cough Verified 08/28/21 12:33 losartan Allergy Intermediate Cough Verified 08/28/21 12:33 azithromycin Allergy Mild Diarrhea Verified 08/28/21 12:33 Home Medications Medication Instructions Recorded Confirmed Type aspirin 81 mg tablet,delayed 81 mg PO 4XWK 10/28/18 03/07/22 History release atorvastatin 10 mg tablet 20 mg PO HS 10/28/18 03/07/22 History insulin detemir U-100 100 unit/mL 14 unit subcut HS 10/28/18 03/07/22 History subcutaneous solution (Levemir U-100 Insulin) metformin 1,000 mg tablet 1,000 mg PO BID 10/28/18 03/07/22 History multivitamin 1 tab PO QAM 10/28/18 03/07/22 History omega 3-qdd-xef-fish oil 1,000 mg 1 cap PO QAM 10/28/18 03/07/22 History (120 mg-180 mg) capsule (Fish Oil) semaglutide 0.25 mg or 0.5 mg (2 5 mg subcut WK 10/28/18 03/07/22 History mg/1.5 mL) subcutaneous pen injector (Ozempic) potassium gluconate 600 mg (99 mg) 600 mg PO BID 08/18/19 03/07/22 History tablet saw palm 160 mg-vit E 100 1 tab PO QAM 08/18/19 03/07/22 History unit-selen 100 mbd-cava-xibqnn-pygeum tablet (Prostate Health) metoprolol tartrate 25 mg tablet 12.5 mg PO BID 08/28/21 03/07/22 History cilostazol 50 mg tablet 50 mg PO 1XD 09/05/21 03/07/22 History finasteride 5 mg tablet 5 mg PO DAILY 09/05/21 03/07/22 History Past Med/Surg History Medical History (Updated 03/07/22 @ 13:14 by DIEUDONNE Wiseman) Abdominal aortic aneurysm found during CAT scan for hematuria - 5.1cm - Repaired by Dr. Burt 09/06/19 - no supervisor process testing - Follows with [facility] BPH (benign prostatic hyperplasia) BPH (benign prostatic hyperplasia) CAD (coronary artery disease) Diabetes mellitus, type 2 IDDM-WELL CONTROLLED AND STABLE Hearing deficit WEARS HEARING AIDS Hyperlipidemia Hypertension Osteoarthritis Seasonal allergies Stroke-like symptoms Tinnitus Surgical History History of AAA (abdominal aortic aneurysm) repair Dr. 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 Family History Other No significant family history Social History Smoking Status: Current every day smoker Tobacco Type: Cigars Cigarettes Per Day: 3-4; Second Hand Exposure: No; Do You Dip or Chew Tobacco: No; Tobacco Cessation Education Requested by Patient: No Hx Alcohol Use: No Hx Substance Use: No Preferred Language: Polish Communication Ability: Effective Travel Service Consultant Required: No Beliefs That Will Affect Care: None Current Living Situation: Family Current Living Situation Comment: Daughter Other Information That Helps Us Care for You: No Feels Safe at Home: Yes Safety Concerns: Feels Safe At This Time Assistive Devices: Cane, Denture - Lower, Glasses and Hearing Aid - Bilateral Review of Systems Review of Systems: Neuro: (-) Falls, trauma, slurred speech HEENT: (-) [place]LS[place], dizziness, dysphagia, visual or auditory changes CV: (-) CP, palpitations, swelling Resp: (-) SOB GI: (-) appetite changes, N/V/D, bowel changes : (-) urinary changes Skin: (-) rashes Psych: (-) anxiety, depression Physical Exam Physical Exam: Neuro: AAOx4, PERRLA, expressive aphagia, memory changes, NIHSS 8 HEENT: head normocephalic, moist mucus membranes. Right sided facial droop CV: S1/S2, (-) M/G/R, (-) edema, cap refill < 3 seconds Resp: Lungs CTA in all tracey. On RA GI: Abdomen S/NT/ND, Ax4 bowel sounds, (-) CVA tenderness Musculoskeletal: 5/5 LUE strength, 4/5 RUE strength 5/5 LLE strength. 4/5 RLE strength Skin: (-) rashes , (-) erythema. Psych: euthymic mood Results & Data Results & Data ([facility]) Vital Signs (Past 12 Hours) Vital Signs Temp Pulse Resp BP Pulse Ox O2 Del Method 03/07/22 10:00 59 L 16 98 03/07/22 10:00 145/77 H 03/07/22 09:30 68 17 96 03/07/22 09:30 168/94 H 03/07/22 09:00 66 17 95 03/07/22 09:00 146/80 H 03/07/22 08:33 71 22 96 03/07/22 08:33 141/77 H 03/07/22 08:30 74 20 03/07/22 08:21 76 19 97 03/07/22 07:44 80 24 95 03/07/22 07:30 Room Air 03/07/22 07:29 36.8 C 85 14 169/82 H 95 Laboratory Results Short CBC 03/07/22 Range/Units 07:45 WBC 12.60 H (4.8-10.8) K/ul Hgb 17.3 (14.0-18.0) g/dl Hct 49.1 (40.1-51.0) % Plt Count 177 (130-400) K/uL BMP 03/07/22 07:45 Sodium 139 Potassium 4.1 Chloride 106 Carbon Dioxide 26 BUN 25 H Creatinine 1.35 Glucose 159 H Calcium 10.0 Liver Function 03/07/22 Range/Units 07:45 Total Bilirubin 0.7 (0.2-1.0) mg/dl AST 16 (13-39) U/L ALT 17 (7-52) U/L Alkaline Phosphatase 78 (34-104) U/L Albumin 4.5 (3.4-5.0) gm/dl Diagnostic Findings Chest X-Ray 03/07/22 07:46 XR chest 1V portable CLINICAL HISTORY: weakness TECHNIQUE: Single frontal radiograph of the chest was obtained. Comparison: Comparison is made to chest radiograph 08/23/2019 FINDINGS: No lines and tubes are seen. Calcified aortic knob is seen. The lungs are clear. No evidence of pleural effusion or pneumothorax. IMPRESSION: No acute abnormalities and in particular no evidence of pneumonia. ACT 112: Negative or not required by law. Electronically signed by: Edward Valiente M.D. 03/07/2022 8:[address] 03/07/22 07:46 CT head/brain wo con CLINICAL HISTORY: fall, stroke like symptoms Technique: Contiguous axial CT images of the head were acquired from the base of the skull to the vertex without intravenous contrast administration. Images were viewed in brain, subdural and bone windows. Automated dose lowering techniques and/or adjustment according to patient size were utilized for this exam. Comparison: Comparison is made to CT head 03/06/2022 Findings: The ventricles, basal cisterns, and cerebral sulci are normal. There is no acute intracranial hemorrhage or evidence of acute territorial infarction. Neither mass effect, shift of the midline structures, nor abnormal extra-axial fluid collections are shown. Imaged portions of the paranasal sinuses and mastoid air cells are clear. The orbits appear normal. There are no acute fractures of the calvaria or scalp swelling. Impression: No acute intracranial hemorrhage, no evidence of acute territorial infarction or other acute intracranial disease process. ACT 112: Negative or not required by law. Electronically signed by: Edward Valiente M.D. 03/07/2022 8:29 AM Code Status & VTE Plan Code Status Full Code in the event of cardiac or respiratory arrest VTE Prophylaxis Plan VTE Prophylaxis will be ordered: Yes Supervising Physician Co-Signing Physician Notes Patient seen and examined independently. Discussed with Jennifer BRO Patient is a 76-year-old male with past medical history of type 2 diabetes mellitus who presented to the ED with strokelike symptoms. Patient reports that he has been having slurred speech, right facial droop and right arm weakness since . He was in the emergency department last night; he had CT head, CTA head and neck done. He signed out AMA. He was brought to the hospital today by his daughter as the symptoms continue to progress. On arrival, patient was hypertensive; otherwise vital stable.Repeat CT head was done; unremarkable. CT angio head and neck were done yesterday; showed high- grade stenosis of left posterior cerebral artery. Patient was then admitted to telemetry floor. On examination, he has slurred speech, right-sided facial droop is present; other cranial nerves intact. 4/5 weakness in right upper and lower extremity; no other sensory changes. MRI of the brain was done; no abnormal diffusion restricted identified. No evidence of intracranial hemorrhage. Speech eval was done; diet started appropriately. For now, we will continue on ASA 81 mg, Lipitor; continue on beta-wong. Will obtain Lyme disease serology, CRP and ESR. We will follow-up on the results. We will also follow-up with neurology recommendation.
[2022-03-07 11:49] LABS: INR 1.1 (0.9-1.1); Prothrombin Time 11.9 Seconds (9.0-12.0)
[2022-03-07 12:00] LABS: Chol HDL Ratio 4.6 (0-5)
[2022-03-07 12:04] LABS: Troponin I High Sensitivity 5.5 pg/ml (0-20)
--- NOTE | 2022-03-07 12:53 | XRay Report ---
XR orbits for MRI CLINICAL HISTORY: Screening for foreign body for MRI TECHNIQUE: AP and lateral views of the orbits were submitted for interpretation. Comparison: None available at the time of this dictation. FINDINGS/IMPRESSION: There are no radiopaque metallic foreign bodies. The osseous structures are unremarkable. Patient is cleared for MRI. ACT 112: Negative or not required by law. Electronically signed by: Edward Valiente M.D. 03/07/2022 12:52 PM
--- NOTE | 2022-03-07 13:56 | Magnetic Resonance Report ---
MR brain wo con CLINICAL HISTORY: acute cva TECHNIQUE: Multiplanar and multisequence MR images of the brain were obtained without intravenous con trast. Comparison: None available at the time of this dictation. FINDINGS: No abnormal restricted diffusion is identified. Foci of T2 and FLAIR hyperintensity are noted in the paraventricular areas consistent with chronic small vessel ischemic disease. Ex vacuo ventriculomegal y and sulcal enlargement is noted compatible with diffuse encephalomalacia. No mass is seen. There is no mass effect or midline shift. There is no evidence of acute intraparenchymal hemorrhage. No extra axial fluid collections are seen. The corpus callosum, pituitary gland, and cerebellar tonsils appea r grossly unremarkable. Flow voids of the major intracranial arterial vessels are identified. The imaged portions of the para nasal sinuses, mastoid air cells, and orbits are unremarkable. IMPRESSION: No acute abnormalities. ACT 112: Negative or not required by law. Electronically signed by: Edward Valiente M.D. 03/07/2022 1:55 PM
[2022-03-07] MEDS ORDERED: DEXTROSE 50% 50 ML SYRINGE IV PRN (14:06)
[2022-03-07] MEDS ORDERED: GLUCOSE 10 TAB/TUBE PO PRN (14:06)
[2022-03-07] MEDS ORDERED: PHARMACY GLYCEMIC MGMT CONSULT PRN (14:06)
[2022-03-07] MEDS ORDERED: GLUCAGON FOR INJ 1 MG VIAL SQ PRN (14:06)
[2022-03-07] MEDS ORDERED: CARBOHYDRATES FOR HYPOGLYCEMIA PO PRN (14:06)
[2022-03-07] MEDS ORDERED: GLUCOSE 40% GEL 15 GM TUBE PO PRN (14:06)
[2022-03-07] MEDS ORDERED: INSULIN ASPART PER UNIT SC ONE (14:30)
[2022-03-07] MEDS ORDERED: INSULIN ASPART PER UNIT SC SCH ×2 (14:30→18:00)
--- NOTE | 2022-03-07 14:56 | Pharmacy Report ---
Pharmacy Glycemic Short Note 2 - Date of Service March 07, 2022 - Glycemic Short BSG Results (Last 24 hours): 03/07/22 07:45 Glucose 159 H OUTPATIENT ANTIDIABETIC REGIMEN: * Levemir 14 units SC HS * Metformin 1 g PO BIDM * Ozempic 0.5 mg SC weekly (Fridays - did NOT take 03/06/22) HbA1c ordered for 03/08/22 ASSESSMENT: * PK is a 76 year old male presents to ED today with stroke-like symptoms since (03/05/22). Presented to ED yesterday evening, but left AMA and subsequently suffered a fall and expresses worsening right-sided facial droop + speech difficulties * Differential at this time includes TIA, Dickens's palsy, and lyme disease * BSG at presentation is 159 mg/dL * Last HbA1c in our records is 7% from 2019, will recheck with AM labs tomorrow * Patient is NPO at this time * Will utilize weight-based stress of 2 Novolog and conservative lantus scale this evening PLAN FOR INPATIENT GLYCEMIC CONTROL: * Hold outpatient oral diabetes medications * Basal insulin * Lantus 0-8 units SC HS (see EHR for details) * Bolus insulin * NovoLog per scale ACHS or Q6hrs while NPO * Goal Range: Low 110 mg/dL - High 140 mg/dL * Correction Factor: 30 mg/dL/unit * Nutritional / Prandial insulin per carb ratio of 1 unit per 10 grams CHO consumed
--- NOTE | 2022-03-07 15:17 | Communication Note ---
Date of Service: March 07, 2022 Discussed case over the phone with Dr. Batista; Neurology locums. Suspects TIA. Recommends dual anti-plt coverage x 90 days. Will start Plavix 75 mg PO daily; continue ASA 81 mg PO daily and low dose Atorvastatin 20 mg Daily. ECHO pending. Neuro will review, evaluate patient and make further recommendations as necessary.
--- NOTE | 2022-03-07 15:30 | Electrocardiogram Report ---
Test Reason : Blood Pressure : / mmHG Vent. Rate : 079 BPM Atrial Rate : 079 BPM P-R Int : 174 ms QRS Dur : 088 ms QT Int : 372 ms P-R-T Axes : 062 -56 015 degrees QTc Int : 426 ms Poor data quality, interpretation may be adversely affected Sinus rhythm Left anterior fascicular block Abnormal ECG When compared with ECG of 06-MAR-2022 19:59, (unconfirmed) No significant change was found Confirmed by Brown Brath ([id number]) on 03/07/2022 3:30:48 PM Referred By: REFERRED SELF Confirmed By:Brown Barth
[2022-03-07 15:44] LABS: Lyme Ab IgG w/WB Rflx Negative (Negative)
[2022-03-07 15:53] LABS: Lyme Ab IgM w/WB Rflx Equivocal (Negative)
[2022-03-07] MEDS: INSULIN ASPART PER UNIT SC SCH ×2 (17:27→20:40)
[2022-03-07] MEDS: CLOPIDOGREL BISULFATE 75 MG TAB PO SCH (17:39)
[2022-03-07] MEDS: DOXYCYCLINE HYCLATE 100 MG in DEXTROSE 5% 100 ML IV SCH (18:35)
[2022-03-07] MEDS: METOPROLOL TARTRATE 25 MG TAB PO SCH (20:42)
[2022-03-07] MEDS: ATORVASTATIN 20 MG TAB PO SCH (20:42)
[2022-03-07] MEDS ORDERED: DOXYCYCLINE HYCLATE 100 MG CAP PO SCH (21:00)
[2022-03-07] MEDS ORDERED: LANTUS PER UNIT CHARGE SQ SCH ×2 (21:00)
[2022-03-07 21:48] LABS: Appearance Urine Clear (Clear); Bilirubin Urine Negative (Negative); Blood Urine Negative (Negative); Color Urine Yellow; Glucose Urine UA Negative (Negative); Ketones Urine Trace (Negative); Leukocyte Esterase Urine Negative (Negative); Nitrite Urine Negative (Negative); Protein Urine Negative (Negative); Specific Gravity Urine 1.015 (1.000-1.030); Urobilinogen Urine Negative (Negative); pH Urine 6.5 (4.5-7.5)
[2022-03-08] MEDS: DOXYCYCLINE HYCLATE 100 MG in DEXTROSE 5% 100 ML IV SCH ×2 (05:42→17:34)
[2022-03-08 06:24] LABS: Hemoglobin 16.9 g/dl (14.0-18.0); Mean Corpuscular Hgb Conc 34.5 g/dL (32.0-36.0); Mean Corpuscular Volume 92.8 fL (80.0-100.0); Mean Platelet Volume 10.5 fL (9.4-12.4); Platelet Count 161 K/uL (130-400); RDW Coefficient of Variation 12.5 % (11.5-14.5); Red Blood Count 5.28 M/uL (4.63-6.08); White Blood Count 11.82 K/ul (4.8-10.8)
[2022-03-08 07:14] LABS: Calcium 9.3 mg/dl (8.5-10.1); Magnesium 1.8 mg/dl (1.7-2.4); Potassium 4.1 mmol/L (3.5-5.1)
[2022-03-08 07:19] LABS: BUN Creatinine Ratio 18.8 (10-20); Creatinine Clr Calc Pharmacy 55.1 ml/min; Est GFR (African American) 74.1 ml/min; Est GFR (Non-African American) 63.9 ml/min
[2022-03-08] MEDS: FINASTERIDE 5 MG TAB PO SCH (08:41)
[2022-03-08] MEDS: LANTUS PER UNIT CHARGE SQ SCH (08:41)
[2022-03-08] MEDS: METOPROLOL TARTRATE 25 MG TAB PO SCH ×2 (08:41→19:55)
[2022-03-08] MEDS: INSULIN ASPART PER UNIT SC SCH ×4 (08:41→20:27)
[2022-03-08] MEDS: CLOPIDOGREL BISULFATE 75 MG TAB PO SCH (08:41)
[2022-03-08] MEDS ORDERED: NON-FORMULARY MEDICATION (Saw-Vit E-Sod Sel-Lyc-Beta-Pyg [Prostate Health] 160-100-100 mg- PO SCH (09:00)
--- NOTE | 2022-03-08 10:05 | Ultrasound Report ---
US venous doppler UE RT HISTORY: 76 years-old Male Right hand swelling acute pain and swelling of the right upper extremity COMPARISON: None TECHNIQUE: Multiple real-time sonographic images of the right upper extremity deep venous structures were obtained assessing grayscale appearance, color and spectral flow FINDINGS: Normal flow, compressibility, phasicity and augmentation of the right upper extremity deep venous str uctures. IMPRESSION: No DVT. ACT 112: Negative or not required by law. The above report was generated using voice recognition software. It may contain grammatical, syntax o r spelling errors. Electronically signed by: Deonte Myles M.D. 03/08/2022 10:03 AM
--- NOTE | 2022-03-08 10:51 | XRay Report ---
XR hand RT min 3V routine HISTORY: 76 years-old Male Swelling of right hand acute pain and swelling of the right hand COMPARISON: 06/19/2021 TECHNIQUE: 3 views of the right hand FINDINGS: The scapholunate interval is widened to 4 mm compatible with prior ligamentous injury. Multifocal ost eoarthritis is moderate within the radiocarpal and triscaphe joints. Subcortical cystic changes of th e carpus. No acute fracture, dislocation or opaque foreign body. Mild dorsal wrist soft tissue promin ence. IMPRESSION: Soft tissue swelling without acute fracture or dislocation. ACT 112: Negative or not required by law. The above report was generated using voice recognition software. It may contain grammatical, syntax o r spelling errors. Electronically signed by: Deonte Myles M.D. 03/08/2022 10:50 AM
--- NOTE | 2022-03-08 10:59 | Electrocardiogram Report ---
Test Reason : Blood Pressure : / mmHG Vent. Rate : 072 BPM Atrial Rate : 072 BPM P-R Int : 178 ms QRS Dur : 086 ms QT Int : 382 ms P-R-T Axes : 056 -54 009 degrees QTc Int : 418 ms Normal sinus rhythm with sinus arrhythmia Left anterior fascicular block Abnormal ECG When compared with ECG of 07-MAR-2022 07:46, No significant change was found Confirmed by Brown Barth ([id number]) on 03/08/2022 10:59:00 AM Referred By: REFERRED SELF Confirmed By:Brown Barth
--- NOTE | 2022-03-08 11:11 | Neurology Consultation ---
Date of Consultation March 08, 2022 Assessment & Plan (1) Ischemic stroke: Plan Neurology Consultation Assessment & Plan: Impression: pt with acute rt side dysmetria and face droop that is improving. initial MRI brain report was negative but when i reviewed the mri brain, i do see DWI/ADC change in upper pontine area that is suggestive of ischemic stroke. his overall picture does suggest he likely had ischemic stroke. 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 Recommendations: * finish up Standard stroke work up as planned * Antiplatelet therapy: * DAPT: start for pts with ABCD2 score 4 or higher. Continue DAPT for continue for 90 days if found to have intracranial large artery atherosclerosis.After DAPT, can continue single antiplatelet therapy. this pt needs 90 days. * * no longer need permissive HTN as pt symptoms now more than 4 days ago. * Long-term SBP goal less than 130. * Plenty of hydration including IV fluid . Avoid hypovolemia and hypotension. * DVT prevention therapy * Avoid hypoglycemia, serum glucose goal during hospitalization: 140-180 * Long-term HgA1c goal less than 7 * Start statin if not on it.Long-term LDL goal of less than 70. * Head of bed up 30 degree if possible. * Stroke education * Smoke cessation education if a smoker. * Telemetry monitoring.Please order MCOT (mobile cardiac outpatient telemetry) orICM (insertable monitoring manager) if never had [facility] cardiac monitoring previously. And if found to have atrial flutter or fibrillation, should consider anticoagulation therapy if no contraindication. * Fall precaution * ok to start Physical/occupational therapy and speech path evaluations. Chart reviewed I have spent more than 50% educating patient about potential diagnosis and neurological evaluation and coordinating care with patient's treatment team. Total time spent: 80 min (this includes chart review and documentation) Dr. Dino Batista MD [facility] Neurology Chief Complaint: face droop and dysarthria HISTORY OF PRESENT ILLNESS:pt this morning still with rt side ataxia and subtle weakness. speech still little off but improving. mri report was reported as negative but i do see DWI/ADC change consistent with ischemic stroke on upper pontine area. pt otherwise stable at this point. Admission/Initial HPI:Mr. Ward is a 76-year-old male who presented to the [facility] with his daughter Meagan after concern for stroke-like symptoms that appear to begin on . The patient was in the ED last evening until 2300 when he signed out AMA after he decided he wanted to go home. He was having unsteadiness with ambulation and then this morning experienced a fall without hitting his head and more right sided facial droop and speech difficulties with aphasia. At baseline the patient is fully independent, just last week he was cutting trees down. He does at times use a cane for walking assistance. At baseline he takes a baby aspirin and low-dose statin. Last evening head CT and CTA were negative for embolic or hemorrhagic stroke. Some high-grade stenosis was noted with arthrosclerotic changes. His last known time being well is outside the window for thrombolytic intervention. Patient denies headache, dizziness, visual or auditory changes, shortness of breath, chest pain, palpitations, abdominal pain, appetite changes or recent trauma. Patient has right-sided facial droop, expressive aphasia, right greater than left weakness NIH on exam 8. Past Medical History: See chart Meds: See chart Social & Family History: See chart Review of Systems: Per HPI. No headache, eye, ear nose, throat problems; no wheezing, No orthopnea, no abdominal pain or vomiting, No pain in the body, no psychiatric,endocrine, or cardiac complaints except as noted above. Physical Exam: General Statement: not in acute distress, well appearing Mental Status: Oriented fully. Normal comprehension, no neglect, Fluent speech with some dysarthria, logical thought process, Visuo-spatial function was intact. No apraxia, no L/R confusion. Cranial Nerves: Visual tracey were full.PERRL.Extraocular movements were full with no nystagmus. Normal pursuit.Facial movements with questionable rt lower face droop but very hard to tell.Hearing was grossly intact.Palate elevated symmetrically.Sternocleidomastoid and trapezius muscles were 5/5 and equal bilaterally.Tongue extended midline. Motor: Strength was 5/5 on left side. RUE 5-/5 t/o and RLE 5/5. Normal tone.There were no abnormal movements or pronator drift. Sensory:intact to touch bilaterally Coordination: noted for RUE dysmetria and RLE also mild dysmetria. Gait: deferred. Reflexes: Deep tendon reflexes were +1 throughout, symmetric. Toes down bilaterally History of Present Illness Attending Physician: Dave Marino MD Allergies Allergy/AdvReac Type Severity Reaction Status Date / Time canagliflozin [From Invokana] Allergy Intermediate facial Verified 08/28/21 12:33 swelling lisinopril Allergy Intermediate Cough Verified 08/28/21 12:33 losartan Allergy Intermediate Cough Verified 08/28/21 12:33 azithromycin Allergy Mild Diarrhea Verified 08/28/21 12:33 Home Medications Medication Instructions Recorded Confirmed Type aspirin 81 mg tablet,delayed 81 mg PO 4XWK 10/28/18 03/07/22 History release atorvastatin 10 mg tablet 20 mg PO HS 10/28/18 03/07/22 History insulin detemir U-100 100 unit/mL 14 unit subcut HS 10/28/18 03/07/22 History subcutaneous solution (Levemir U-100 Insulin) metformin 1,000 mg tablet 1,000 mg PO BID 10/28/18 03/07/22 History multivitamin 1 tab PO QAM 10/28/18 03/07/22 History omega 6-tdi-cxo-fish oil 1,000 mg 1 cap PO QAM 10/28/18 03/07/22 History (120 mg-180 mg) capsule (Fish Oil) semaglutide 0.25 mg or 0.5 mg (2 5 mg subcut WK 10/28/18 03/07/22 History mg/1.5 mL) subcutaneous pen injector (Ozempic) potassium gluconate 600 mg (99 mg) 600 mg PO BID 08/18/19 03/07/22 History tablet saw palm 160 mg-vit E 100 1 tab PO QAM 08/18/19 03/07/22 History unit-selen 100 abr-xigc-ulnibs-pygeum tablet (Prostate Health) metoprolol tartrate 25 mg tablet 12.5 mg PO BID 08/28/21 03/07/22 History cilostazol 50 mg tablet 50 mg PO 1XD 09/05/21 03/07/22 History finasteride 5 mg tablet 5 mg PO DAILY 09/05/21 03/07/22 History Patient History Medical History (Updated 03/08/22 @ 11:26 by Dino Batista MD) Abdominal aortic aneurysm found during CAT scan for hematuria - 5.1cm - Repaired by Dr. Burt 09/06/19 - no personal lines insurance advisor - Follows with [facility] BPH (benign prostatic hyperplasia) BPH (benign prostatic hyperplasia) CAD (coronary artery disease) Diabetes mellitus, type 2 IDDM-WELL CONTROLLED AND STABLE Hearing deficit WEARS HEARING AIDS Hyperlipidemia Hypertension Osteoarthritis Seasonal allergies Stroke-like symptoms Tinnitus Surgical History History of AAA (abdominal aortic aneurysm) repair Dr. 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 Family History Other No significant family history Social History Smoking Status: Current every day smoker Tobacco Type: Cigars Cigarettes Per Day: 3-4; Second Hand Exposure: No; Do You Dip or Chew Tobacco: No; Tobacco Cessation Education Requested by Patient: No Hx Alcohol Use: No Hx Substance Use: No Preferred Language: Panamanian Communication Ability: Effective Body Trimmer Required: No Beliefs That Will Affect Care: None Current Living Situation: Family Current Living Situation Comment: Daughter Other Information That Helps Us Care for You: No Feels Safe at Home: Yes Safety Concerns: Feels Safe At This Time Assistive Devices: Cane, Denture - Lower, Glasses and Hearing Aid - Bilateral Results & Data ([facility]) Vital Signs (Past 12 Hours) Vital Signs Temp Pulse Pulse Resp BP Pulse Ox O2 Del Method 03/08/22 08:11 37.0 C 84 16 154/81 H 95 Room Air 03/08/22 02:58 36.9 C 75 17 177/93 H 95 Room Air 03/08/22 00:05 74
[2022-03-08] MEDS: ASPIRIN 81 MG CHEW PO SCH (12:34)
[2022-03-08] MEDS: amLODIPine BESYLATE 5 MG TAB PO SCH (12:34)
--- NOTE | 2022-03-08 12:46 | Hospitalist Progress Note ---
Date of Service March 08, 2022 Assessment & Plan (1) Stroke-like symptoms: (2) Diabetes mellitus, type 2: (3) Hyperlipidemia: (4) CAD (coronary artery disease): (5) BPH (benign prostatic hyperplasia): Plan 76-year-old stroke-like symptoms started on . The patient was in the ED last evening until 2300 when he signed out AMA after he decided he wanted to go home. He was having unsteadiness with ambulation and then this morning experienced a fall without hitting his head and more right sided facial droop and speech difficulties with aphasia. At baseline the patient is fully independent, just last week he was cutting trees down. He does at times use a cane for walking assistance. At baseline he takes a baby aspirin and low-dose statin. head CT and CTA negative. 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 -MRI reviewed by neurology; DWI/ACD change in upper pontine area suggestive of ischemic stroke. Evaluated by speech; diarrhea started Plan; -Started on DAPT including aspirin and Plavix as recommended by neurology. Total duration for 90 days; Plavix after that. Patient is on cilostazol at home which we will discontinue. -Blood pressure control; started on amlodipine. Continue on home metoprolol -Blood glucose control. PT OT evaluation. -Continue on Lipitor 20 mg once daily. Echo pending Telemetry monitoring Equivocal Lyme IgM test -History of tick bite; -Will await on confirmation. Continue on doxycycline for now. Unable to tolerate oral doxycycline as per daughter; currently on IV doxycycline. Right hand swelling -On examination; diffusely swollen right hand without any overlying skin changes -Reports injury on the dorsal aspect 1 year ago -X-ray hand shows soft tissue swelling. -Venous duplex negative for DVT -Monitor for now. DM2: -Blood sugars range 1 60-1 80 -Takes metformin, Ozempic (injections on Fridays) -Takes Levemir 14 units nightly -We will hold all home diabetic medications and place on AC at bedtime FSBS with SSI -Glycemic pharmacy consult placed for long-acting insulin assistance A1c pending CAD: H/O AAA: HTN: -Repaired by Dr. Burt in 2019 -Last echo 2010; EF 60 to 65%, G1 diastolic dysfunction, normal wall motion -Takes Cilostazol; stopped and started on aspirin/Plavix. -Takes metoprolol 12.5 mg p.o. twice daily at home. Amlodipine 5 mg once a day added. HLD: -Takes atorvastatin 20 mg; continue for now -Lipid panel pending Disposition: PCP: [facility] Code Status: Full code VTE Prophylaxis: heparin Admission and Anticipated Discharge Date Admission Date: March 07, 2022 Subjective Patient seen and examined at bedside. He is sitting up at the side of the bed; not in any distress. He is frustrated due to the weakness on his right hand. Review of Systems Review of Systems: All systems reviewed & are unremarkable except as noted in Subjective Physical Exam Physical Exam: Constitutional: WD/WN, vitals as above, NAD, sitting up in bed, pleasant, conversing easily Respiratory: normal respiratory effort, lungs clear to auscultation, no wheeze, rales, rhonchi. Normal insp/exp effort, no accessory muscle use Cardiovascular: RRR, no murmur, no edema Vessels: no JVD or carotid bruit Chest: normal inspection of chest Abdomen: normal bowel sounds, soft, nontender, no hepatosplenomegaly Musculoskeletal: Soft tissue swelling present on right hand; nontender. Scar alex from prior injury on dorsal aspect. Skin: no rashes, warm and dry normal turgor Neurologic: Awake, alert orient x3. Right lower facial droop. Dysmetria in right upper and lower extremity. Strength intact otherwise. Psychiatric: A+Ox3, euthymic affect Lymphatic: no cervical or axillary lymphadenopathy : deferred Results & Data Results & Data ([facility]) Vital Signs (Past 12 Hours) Vital Signs Temp Pulse Resp BP Pulse Ox O2 Del Method 03/08/22 11:24 81 18 143/77 H 96 Room Air 03/08/22 08:11 37.0 C 84 16 154/81 H 95 Room Air 03/08/22 02:58 36.9 C 75 17 177/93 H 95 Room Air Laboratory Results Laboratory Results WBC 11.82 K/ul (4.8-10.8) H 03/08/22 05:23 RBC 5.28 M/uL (4.63-6.08) 03/08/22 05:23 Hgb 16.9 g/dl (14.0-18.0) 03/08/22 05: Hct 49.0 % (40.1-51.0) 03/08/22 05: MCV 92.8 fL (80.0-100.0) 03/08/22 05: MCH 32.0 pg (25.0-34.0) 03/08/22 05: MCHC 34.5 g/dL (32.0-36.0) 03/08/22 05: RDW Std Deviation 43.0 fL (36.4-46.3) 03/08/22 05: RDW Coeff of Nafisa 12.5 % (11.5-14.5) 03/08/22 05: Plt Count 161 K/uL (130-400) 03/08/22 05: MPV 10.5 fL (9.4-12.4) 03/08/22 05:23 Immature Gran % (Auto) 0.5 % 03/07/22 07:45 Neut % (Auto) 74.7 % 03/07/22 07:45 Lymph % (Auto) 15.5 % 03/07/22 07:45 [place] % (Auto) 6.3 % 03/07/22 07:45 Eos % (Auto) 2.5 % 03/07/22 07:45 Baso % (Auto) 0.5 % 03/07/22 07:45 Neut # (Auto) 9.41 K/uL (1.4-6.5) H 03/07/22 07:45 Lymph # (Auto) 1.95 K/uL (1.2-3.4) 03/07/22 07:45 [place] # (Auto) 0.80 K/uL (0.24-0.82) 03/07/22 07:45 Eos # (Auto) 0.32 K/uL (0-0.50) 03/07/22 07:45 Baso # (Auto) 0.06 K/uL (0-0.2) 03/07/22 07:45 Immature Gran # (Auto) 0.06 K/uL (0.00-0.02) H 03/07/22 07:45 ESR 16 mm/hr (0-20) 01/21/23 07:45 ESR Cancelled 03/07/22 07:45 PT 11.9 Seconds (9.0-12.0) 03/07/22 11:25 INR 1.1 (0.9-1.1) 03/07/22 11:25 Sodium 139 mmol/L (136-145) 03/08/22 05:23 Potassium 4.1 mmol/L (3.5-5.1) 03/08/22 05:23 Chloride 109 mmol/L (98-107) H 03/08/22 05:23 Carbon Dioxide 23 mmol/L (21-32) 03/08/22 05:23 Anion Gap 7 (3-11) 03/08/22 05:23 BUN 21 mg/dl (6-23) 03/08/22 05:23 Creatinine 1.12 mg/dl (0.6-1.4) 03/08/22 05:23 Est Cr Clr Drug Dosing 55.1 ml/min 03/08/22 05:23 Est GFR ( Amer) 74.1 ml/min 03/08/22 05:23 Est GFR (Non-Af Amer) 63.9 ml/min 03/08/22 05:23 BUN/Creatinine Ratio 18.8 (10-20) 03/08/22 05:23 Glucose 140 mg/dl (70-99(Fasting)) H 03/08/22 05:23 POC Glucose 103 mg/dl (70-99) H 03/08/22 10:57 Calcium 9.3 mg/dl (8.5-10.1) 03/08/22 05:23 Magnesium 1.8 mg/dl (1.7-2.4) 03/08/22 05:23 Total Bilirubin 0.7 mg/dl (0.2-1.0) 03/07/22 07:45 AST 16 U/L (13-39) 03/07/22 07:45 ALT 17 U/L (7-52) 03/07/22 07:45 Alkaline Phosphatase 78 U/L (34-104) 03/07/22 07:45 Troponin I High Sens 5.5 pg/ml (0-20) 03/07/22 11:25 C-Reactive Protein < 0.50 mg/dl (0-0.5) 03/07/22 11:25 Total Protein 7.2 gm/dl (6.0-8.3) 03/07/22 07:45 Albumin 4.5 gm/dl (3.4-5.0) 03/07/22 07:45 Globulin 2.7 gm/dl (2.5-4.0) 03/07/22 07:45 Albumin/Globulin Ratio 1.7 (0.9-2) 03/07/22 07:45 Triglycerides 114 mg/dl (0-150) 03/07/22 11:25 Cholesterol 137 mg/dl (0-200) 03/07/22 11:25 LDL Cholesterol, Calc 84 mg/dl 03/07/22 11:25 VLDL Cholesterol, Calc 23 mg/dl (0-30) 03/07/22 11:25 HDL Cholesterol 30 mg/dl 03/07/22 11:25 Cholesterol/HDL Ratio 4.6 (0-5) 03/07/22 11:25 Lipase 52 U/L (11-82) 03/07/22 07:45 TSH 5.533 uIu/ml (0.300-4.500) H 03/07/22 07:45 Free T4 1.14 ng/dl (0.61-1.60) 03/07/22 07:45 Urine Color Yellow 03/07/22 19:14 Urine Appearance Clear (Clear) 03/07/22 19:14 Urine pH 6.5 (4.5-7.5) 03/07/22 19:14 Ur Specific Dille 1.015 (1.000-1.030) 03/07/22 19:14 Urine Protein Negative (Negative) 03/07/22 19:14 Urine Glucose (UA) Negative (Negative) 03/07/22 19:14 Urine Ketones Trace (Negative) H 03/07/22 19:14 Urine Blood Negative (Negative) 03/07/22 19:14 Urine Nitrite Negative (Negative) 03/07/22 19:14 Urine Bilirubin Negative (Negative) 03/07/22 19:14 Urine Urobilinogen Negative (Negative) 03/07/22 19:14 Ur Leukocyte Esterase Negative (Negative) 03/07/22 19:14 Lyme Disease IgG Ab Negative (Negative) 03/07/22 07:45 Lyme Disease IgM Ab Equivocal (Negative) A 03/07/22 07:45 SARS-CoV-2 (PCR) NEGATIVE (Negative) 03/07/22 09:23 Influenza Type A (PCR) Negative (Neg) 03/07/22 09:23 Influenza Type B (PCR) Negative (Neg) 03/07/22 09:23 RSV (RT-PCR) Negative (Neg) 03/07/22 09:23 Impressions Chest X-Ray 03/07/22 07:46 XR chest 1V portable CLINICAL HISTORY: weakness TECHNIQUE: Single frontal radiograph of the chest was obtained. Comparison: Comparison is made to chest radiograph 08/23/2019 FINDINGS: No lines and tubes are seen. Calcified aortic knob is seen. The lungs are clear. No evidence of pleural effusion or pneumothorax. IMPRESSION: No acute abnormalities and in particular no evidence of pneumonia. ACT 112: Negative or not required by law. Electronically signed by: Edward Valiente M.D. 03/07/2022 8:[address] 03/07/22 07:46 CT head/brain wo con CLINICAL HISTORY: fall, stroke like symptoms Technique: Contiguous axial CT images of the head were acquired from the base of the skull to the vertex without intravenous contrast administration. Images were viewed in brain, subdural and bone windows. Automated dose lowering techniques and/or adjustment according to patient size were utilized for this exam. Comparison: Comparison is made to CT head 03/06/2022 Findings: The ventricles, basal cisterns, and cerebral sulci are normal. There is no acute intracranial hemorrhage or evidence of acute territorial infarction. Neither mass effect, shift of the midline structures, nor abnormal extra-axial fluid collections are shown. Imaged portions of the paranasal sinuses and mastoid air cells are clear. The orbits appear normal. There are no acute fractures of the calvaria or scalp swelling. Impression: No acute intracranial hemorrhage, no evidence of acute territorial infarction or other acute intracranial disease process. ACT 112: Negative or not required by law. Electronically signed by: Edward Valiente M.D. 03/07/2022 8:29 AM Brain MRI 03/07/22 11:30 MR brain wo con CLINICAL HISTORY: acute cva TECHNIQUE: Multiplanar and multisequence MR images of the brain were obtained without intravenous contrast. Comparison: None available at the time of this dictation. FINDINGS: No abnormal restricted diffusion is identified. Foci of T2 and FLAIR hyperintensity are noted in the paraventricular areas consistent with chronic small vessel ischemic disease. Ex vacuo ventriculomegaly and sulcal enlargement is noted compatible with diffuse encephalomalacia. No mass is seen. There is no mass effect or midline shift. There is no evidence of acute intraparenchymal hemorrhage. No extra axial fluid collections are seen. The corpus callosum, pituitary gland, and cerebellar tonsils appear grossly unremarkable. Flow voids of the major intracranial arterial vessels are identified. The imaged portions of the paranasal sinuses, mastoid air cells, and orbits are unremarkable. IMPRESSION: No acute abnormalities. ACT 112: Negative or not required by law. Electronically signed by: Edward Valiente M.D. 03/07/2022 1:55 PM Orbit X-Ray 03/07/22 12:24 XR orbits for MRI CLINICAL HISTORY: Screening for foreign body for MRI TECHNIQUE: AP and lateral views of the orbits were submitted for interpretation. Comparison: None available at the time of this dictation. FINDINGS/IMPRESSION: There are no radiopaque metallic foreign bodies. The osseous structures are unremarkable. Patient is cleared for MRI. ACT 112: Negative or not required by law. Electronically signed by: Edward Valiente M.D. 03/07/2022 12:52 PM Hand X-Ray 03/08/22 08:58 XR hand RT min 3V routine HISTORY: 76 years-old Male Swelling of right hand acute pain and swelling of the right hand COMPARISON: 06/19/2021 TECHNIQUE: 3 views of the right hand FINDINGS: The scapholunate interval is widened to 4 mm compatible with prior ligamentous injury. 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 Subcortical cystic changes of the carpus. No acute fracture, dislocation or opaque foreign body. Mild dorsal wrist soft tissue prominence. IMPRESSION: Soft tissue swelling without acute fracture or dislocation. ACT 112: Negative or not required by law. The above report was generated using voice recognition software. It may contain grammatical, syntax or spelling errors. Electronically signed by: Deonte Myles M.D. 03/08/2022 10:50 AM Venous Doppler Study 03/08/22 08:58 US venous doppler UE RT HISTORY: 76 years-old Male Right hand swelling acute pain and swelling of the right upper extremity COMPARISON: None TECHNIQUE: Multiple real-time sonographic images of the right upper extremity deep venous structures were obtained assessing grayscale appearance, color and spectral flow FINDINGS: Normal flow, compressibility, phasicity and augmentation of the right upper extremity deep venous structures. IMPRESSION: No DVT. ACT 112: Negative or not required by law. The above report was generated using voice recognition software. It may contain grammatical, syntax or spelling errors. Electronically signed by: Deonte Myles M.D. 03/08/2022 10:03 AM
--- NOTE | 2022-03-08 13:08 | Pharmacy Report ---
Pharmacy Glycemic Short Note 2 - Date of Service March 08, 2022 - Glycemic Short BSG Results (Last 24 hours): 03/07/22 03/07/22 03/08/22 16:21 20:36 05:23 Glucose 140 H POC Glucose 142 H 103 H 03/08/22 03/08/22 07:19 10:57 Glucose POC Glucose 151 H 103 H OUTPATIENT ANTIDIABETIC REGIMEN: * Levemir 14 units SC HS * Metformin 1 g PO BIDM * Ozempic 0.5 mg SC weekly (Fridays - did NOT take 03/06/22) HbA1c ordered for 03/08/22 (pending at this time) ASSESSMENT: 03/08/22: * BSGs well-controlled since time of admission * NPO -> T2DM diet last evening * Fasting BSG elevated at 151 mg/dL this morning - will give conservative basal dose this morning * Given downtrend in BSGs (103 mg/dL at lunch), will loosen Novolog parameters 03/07/22: * PK is a 76 year old male presents to ED today with stroke-like symptoms since (03/05/22). Presented to ED yesterday evening, but left AMA and subsequently suffered a fall and expresses worsening right-sided facial droop + speech difficulties * Differential at this time includes TIA, Dickens's palsy, and lyme disease * BSG at presentation is 159 mg/dL * Last HbA1c in our records is 7% from 2019, will recheck with AM labs tomorrow * Patient is NPO at this time * Will utilize weight-based stress of 2 Novolog and conservative lantus scale this evening PLAN FOR INPATIENT GLYCEMIC CONTROL: * Hold outpatient oral diabetes medications * Basal insulin - add basal * Lantus 7 units SC daily * Bolus insulin - loosen * NovoLog per scale ACHS or Q6hrs while NPO * Goal Range: Low 110 mg/dL - High 140 mg/dL * Correction Factor: 35 mg/dL/unit * Nutritional / Prandial insulin per carb ratio of 1 unit per 15 grams CHO consumed
[2022-03-08] MEDS: HEPARIN SOD 5,000 UNIT/0.5 ML VIAL SQ SCH ×2 (14:24→22:21)
[2022-03-08] MEDS: ATORVASTATIN 20 MG TAB PO SCH (19:55)
[2022-03-09] MEDS: DOXYCYCLINE HYCLATE 100 MG in DEXTROSE 5% 100 ML IV SCH (06:08)
[2022-03-09] MEDS: HEPARIN SOD 5,000 UNIT/0.5 ML VIAL SQ SCH ×3 (06:08→20:49)
[2022-03-09 07:01] LABS: Estimated Average Glucose 151 mg/dl; Hemoglobin A1C 6.9 % (4.5-5.6)
[2022-03-09 08:48] LABS: Basophils # (auto) 0.03 K/uL (0-0.2); Basophils % (auto) 0.3 %; Eosinophils # (auto) 0.23 K/uL (0-0.50); Eosinophils % (auto) 2.3 %; Hemoglobin 17.4 g/dl (14.0-18.0); Immature Granulocytes # (auto) 0.04 K/uL (0.00-0.02); Immature Granulocytes % (auto) 0.4 %; Lymphocytes # (auto) 2.25 K/uL (1.2-3.4); Lymphocytes % (auto) 22.7 %; Mean Corpuscular Hgb Conc 34.8 g/dL (32.0-36.0); Mean Corpuscular Volume 92.1 fL (80.0-100.0); Mean Platelet Volume 10.2 fL (9.4-12.4); Monocytes # (auto) 0.66 K/uL (0.24-0.82); Monocytes % (auto) 6.7 %; Neutrophils % (auto) 67.6 %; Platelet Count 175 K/uL (130-400); RDW Coefficient of Variation 12.7 % (11.5-14.5); RDW Standard Deviation 42.8 fL (36.4-46.3); Red Blood Count 5.43 M/uL (4.63-6.08); White Blood Count 9.91 K/ul (4.8-10.8)
[2022-03-09] MEDS: amLODIPine BESYLATE 5 MG TAB PO SCH (08:51)
[2022-03-09] MEDS: METOPROLOL TARTRATE 25 MG TAB PO SCH ×2 (08:51→20:48)
[2022-03-09] MEDS: FINASTERIDE 5 MG TAB PO SCH (08:51)
[2022-03-09] MEDS: ASPIRIN 81 MG CHEW PO SCH (08:52)
[2022-03-09] MEDS: CLOPIDOGREL BISULFATE 75 MG TAB PO SCH (08:52)
[2022-03-09] MEDS: LANTUS PER UNIT CHARGE SQ SCH (09:00)
[2022-03-09] MEDS: INSULIN ASPART PER UNIT SC SCH ×4 (09:00→20:50)
[2022-03-09 09:22] LABS: BUN Creatinine Ratio 17.8 (10-20); Calcium 9.5 mg/dl (8.5-10.1); Creatinine Clr Calc Pharmacy 45.7 ml/min; Est GFR (African American) 59.1 ml/min; Potassium 4.2 mmol/L (3.5-5.1)
--- NOTE | 2022-03-09 10:50 | Hospitalist Progress Note ---
Date of Service March 09, 2022 Assessment & Plan (1) Stroke-like symptoms: (2) Diabetes mellitus, type 2: (3) Hyperlipidemia: (4) CAD (coronary artery disease): (5) BPH (benign prostatic hyperplasia): Plan 76-year-old stroke-like symptoms started on . The patient was in the ED last evening until 2300 when he signed out AMA after he decided he wanted to go home. He was having unsteadiness with ambulation and then this morning experienced a fall without hitting his head and more right sided facial droop and speech difficulties with aphasia. At baseline the patient is fully independent, just last week he was cutting trees down. He does at times use a cane for walking assistance. At baseline he takes a baby aspirin and low-dose statin. head CT and CTA negative. 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 -MRI reviewed by neurology; DWI/ACD change in upper pontine area suggestive of ischemic stroke. Evaluated by speech; diarrhea started Plan; -Started on DAPT including aspirin and Plavix as recommended by neurology. Total duration for 90 days; Plavix after that. Patient is on cilostazol at home which we will discontinue. -Blood pressure control; started on amlodipine. Continue on home metoprolol -Blood glucose control. PT OT evaluation recommend inpatient Rehab -Continue on Lipitor 20 mg once daily. Echo pending Telemetry monitoring Equivocal Lyme IgM test -History of tick bite; -western blot sent for confirmation; will be back by the end of the week. - will empirically treat for 1 week. Right hand swelling -On examination; diffusely swollen right hand without any overlying skin changes -Reports injury on the dorsal aspect 1 year ago -X-ray hand shows soft tissue swelling. -Venous duplex negative for DVT -Monitor for now. DM2: -Blood sugars range 1 60-1 80 -Takes metformin, Ozempic (injections on Fridays) -Takes Levemir 14 units nightly -We will hold all home diabetic medications and place on AC at bedtime FSBS with SSI -Glycemic pharmacy consult placed for long-acting insulin assistance - A1c- 6.9%. CAD: H/O AAA: HTN: -Repaired by Dr. Burt in 2019 -Last echo 2010; EF 60 to 65%, G1 diastolic dysfunction, normal wall motion -Takes Cilostazol; stopped and started on aspirin/Plavix. -Takes metoprolol 12.5 mg p.o. twice daily at home. Amlodipine 5 mg once a day added. HLD: -Takes atorvastatin 20 mg; continue for now -LDL- 84; continue on lipitor Disposition: PCP: [facility] Code Status: Full code VTE Prophylaxis: heparin PT OT evaluation completed; recommend inpatient rehab. Case management on board. Dc when placement avaiable Admission and Anticipated Discharge Date Admission Date: March 07, 2022 Subjective Seen and examined at bedside. He is comfortable; not in any distress. Reports being frustrated due to his weakness Review of Systems Review of Systems: All systems reviewed & are unremarkable except as noted in Subjective Physical Exam Physical Exam: Constitutional: WD/WN, vitals as above, NAD, sitting up in bed, pleasant, conversing easily Respiratory: normal respiratory effort, lungs clear to auscultation, no wheeze, rales, rhonchi. Normal insp/exp effort, no accessory muscle use Cardiovascular: RRR, no murmur, no edema Vessels: no JVD or carotid bruit Chest: normal inspection of chest Abdomen: normal bowel sounds, soft, nontender, no hepatosplenomegaly Musculoskeletal: Soft tissue swelling present on right hand; nontender. Scar alex from prior injury on dorsal aspect. Skin: no rashes, warm and dry normal turgor Neurologic: Awake, alert orient x3. Right lower facial droop. Dysmetria in right upper and lower extremity. Strength intact otherwise. Psychiatric: A+Ox3, euthymic affect Lymphatic: no cervical or axillary lymphadenopathy : deferred Results & Data Results & Data ([facility]) Vital Signs (Past 12 Hours) Vital Signs Temp Pulse Pulse Resp BP BP Pulse Ox 03/09/22 07:25 36.8 C 76 17 140/86 94 03/09/22 03:46 64 03/09/22 02:50 36.8 C 71 16 126/66 97 03/08/22 23:07 37.1 C 72 15 118/65 96 O2 Del Method 03/09/22 07:25 Room Air 03/09/22 03:46 03/09/22 02:50 Room Air 03/08/22 23:07 Room Air Laboratory Results Laboratory Results WBC 9.91 K/ul (4.8-10.8) 03/09/22 08:00 RBC 5.43 M/uL (4.63-6.08) 03/09/22 08:00 Hgb 17.4 g/dl (14.0-18.0) 03/09/22 08:00 Hct 50.0 % (40.1-51.0) 03/09/22 08:00 MCV 92.1 fL (80.0-100.0) 03/09/22 08:00 MCH 32.0 pg (25.0-34.0) 03/09/22 08:00 MCHC 34.8 g/dL (32.0-36.0) 03/09/22 08:00 RDW Std Deviation 42.8 fL (36.4-46.3) 03/09/22 08:00 RDW Coeff of Nafisa 12.7 % (11.5-14.5) 03/09/22 08:00 Plt Count 175 K/uL (130-400) 03/09/22 08:00 MPV 10.2 fL (9.4-12.4) 03/09/22 08:00 Immature Gran % (Auto) 0.4 % 03/09/22 08:00 Neut % (Auto) 67.6 % 03/09/22 08:00 Lymph % (Auto) 22.7 % 03/09/22 08:00 [facility] % (Auto) 6.7 % 03/09/22 08:00 Eos % (Auto) 2.3 % 03/09/22 08:00 Baso % (Auto) 0.3 % 03/09/22 08:00 Neut # (Auto) 6.70 K/uL (1.4-6.5) H 03/09/22 08:00 Lymph # (Auto) 2.25 K/uL (1.2-3.4) 03/09/22 08:00 [facility] # (Auto) 0.66 K/uL (0.24-0.82) 03/09/22 08:00 Eos # (Auto) 0.23 K/uL (0-0.50) 03/09/22 08:00 Baso # (Auto) 0.03 K/uL (0-0.2) 03/09/22 08:00 Immature Gran # (Auto) 0.04 K/uL (0.00-0.02) H 03/09/22 08:00 ESR 16 mm/hr (0-20) 03/07/22 07:45 ESR Cancelled 03/07/22 07:45 PT 11.9 Seconds (9.0-12.0) 03/07/22 11:25 INR 1.1 (0.9-1.1) 03/07/22 11:25 Sodium 141 mmol/L (136-145) 03/09/22 08:00 Potassium 4.2 mmol/L (3.5-5.1) 03/09/22 08:00 Chloride 107 mmol/L (98-107) 03/09/22 08:00 Carbon Dioxide 27 mmol/L (21-32) 03/09/22 08:00 Anion Gap 7 (3-11) 03/09/22 08:00 BUN 24 mg/dl (6-23) H 03/09/22 08:00 Creatinine 1.35 mg/dl (0.6-1.4) 03/09/22 08:00 Est Cr Clr Drug Dosing 45.7 ml/min 03/09/22 08:00 Est GFR ( Amer) 59.1 ml/min 03/09/22 08:00 Est GFR (Non-Af Amer) 51.0 ml/min 03/09/22 08:00 BUN/Creatinine Ratio 17.8 (10-20) 03/09/22 08:00 Glucose 164 mg/dl (70-99(Fasting)) H 03/09/22 08:00 POC Glucose 148 mg/dl (70-99) H 03/09/22 07:09 Estimat Average Glucose 151 mg/dl 03/08/22 05:23 Hemoglobin A1c 6.9 % (4.5-5.6) H 03/08/22 05:23 Calcium 9.5 mg/dl (8.5-10.1) 03/09/22 08:00 Magnesium 1.8 mg/dl (1.7-2.4) 03/08/22 05:23 Total Bilirubin 0.7 mg/dl (0.2-1.0) 03/07/22 07:45 AST 16 U/L (13-39) 03/07/22 07:45 ALT 17 U/L (7-52) 03/07/22 07:45 Alkaline Phosphatase 78 U/L (34-104) 03/07/22 07:45 Troponin I High Sens 5.5 pg/ml (0-20) 03/07/22 11:25 C-Reactive Protein < 0.50 mg/dl (0-0.5) 03/07/22 11:25 Total Protein 7.2 gm/dl (6.0-8.3) 03/07/22 07:45 Albumin 4.5 gm/dl (3.4-5.0) 03/07/22 07:45 Globulin 2.7 gm/dl (2.5-4.0) 03/07/22 07:45 Albumin/Globulin Ratio 1.7 (0.9-2) 03/07/22 07:45 Triglycerides 114 mg/dl (0-150) 03/07/22 11:25 Cholesterol 137 mg/dl (0-200) 03/07/22 11:25 LDL Cholesterol, Calc 84 mg/dl 03/07/22 11:25 VLDL Cholesterol, Calc 23 mg/dl (0-30) 03/07/22 11:25 HDL Cholesterol 30 mg/dl 03/07/22 11:25 Cholesterol/HDL Ratio 4.6 (0-5) 03/07/22 11:25 Lipase 52 U/L (11-82) 03/07/22 07:45 TSH 5.533 uIu/ml (0.300-4.500) H 03/07/22 07:45 Free T4 1.14 ng/dl (0.61-1.60) 03/07/22 07:45 Urine Color Yellow 03/07/22 19:14 Urine Appearance Clear (Clear) 03/07/22 19:14 Urine pH 6.5 (4.5-7.5) 03/07/22 19:14 Ur Specific Dennis 1.015 (1.000-1.030) 03/07/22 19:14 Urine Protein Negative (Negative) 03/07/22 19:14 Urine Glucose (UA) Negative (Negative) 03/07/22 19:14 Urine Ketones Trace (Negative) H 03/07/22 19:14 Urine Blood Negative (Negative) 03/07/22 19:14 Urine Nitrite Negative (Negative) 03/07/22 19:14 Urine Bilirubin Negative (Negative) 03/07/22 19:14 Urine Urobilinogen Negative (Negative) 03/07/22 19:14 Ur Leukocyte Esterase Negative (Negative) 03/07/22 19:14 Lyme Disease IgG Ab Negative (Negative) 03/07/22 07:45 Lyme Disease IgM Ab Equivocal (Negative) A 03/07/22 07:45 SARS-CoV-2 (PCR) NEGATIVE (Negative) 03/07/22 09:23 Influenza Type A (PCR) Negative (Neg) 03/07/22 09:23 Influenza Type B (PCR) Negative (Neg) 03/07/22 09:23 RSV (RT-PCR) Negative (Neg) 03/07/22 09:23 Impressions Chest X-Ray 03/07/22 07:46 XR chest 1V portable CLINICAL HISTORY: weakness TECHNIQUE: Single frontal radiograph of the chest was obtained. Comparison: Comparison is made to chest radiograph 08/23/2019 FINDINGS: No lines and tubes are seen. Calcified aortic knob is seen. The lungs are clear. No evidence of pleural effusion or pneumothorax. IMPRESSION: No acute abnormalities and in particular no evidence of pneumonia. ACT 112: Negative or not required by law. Electronically signed by: Edward Valiente M.D. 03/07/2022 8:[address] 03/07/22 07:46 CT head/brain wo con CLINICAL HISTORY: fall, stroke like symptoms Technique: Contiguous axial CT images of the head were acquired from the base of the skull to the vertex without intravenous contrast administration. Images were viewed in brain, subdural and bone windows. Automated dose lowering techniques and/or adjustment according to patient size were utilized for this exam. Comparison: Comparison is made to CT head 03/06/2022 Findings: The ventricles, basal cisterns, and cerebral sulci are normal. There is no acute intracranial hemorrhage or evidence of acute territorial infarction. Neither mass effect, shift of the midline structures, nor abnormal extra-axial fluid collections are shown. Imaged portions of the paranasal sinuses and mastoid air cells are clear. The orbits appear normal. There are no acute fractures of the calvaria or scalp swelling. Impression: No acute intracranial hemorrhage, no evidence of acute territorial infarction or other acute intracranial disease process. ACT 112: Negative or not required by law. Electronically signed by: Edward Valiente M.D. 03/07/2022 8:29 AM Brain MRI 03/07/22 11:30 MR brain wo con CLINICAL HISTORY: acute cva TECHNIQUE: Multiplanar and multisequence MR images of the brain were obtained without intravenous contrast. Comparison: None available at the time of this dictation. FINDINGS: No abnormal restricted diffusion is identified. Foci of T2 and FLAIR hyperintensity are noted in the paraventricular areas consistent with chronic small vessel ischemic disease. Ex vacuo ventriculomegaly and sulcal enlargement is noted compatible with diffuse encephalomalacia. No mass is seen. There is no mass effect or midline shift. There is no evidence of acute intraparenchymal hemorrhage. No extra axial fluid collections are seen. The corpus callosum, pituitary gland, and cerebellar tonsils appear grossly unremarkable. Flow voids of the major intracranial arterial vessels are identified. The imaged portions of the paranasal sinuses, mastoid air cells, and orbits are unremarkable. IMPRESSION: No acute abnormalities. ACT 112: Negative or not required by law. Electronically signed by: Edward Valiente M.D. 03/07/2022 1:55 PM Orbit X-Ray 03/07/22 12:24 XR orbits for MRI CLINICAL HISTORY: Screening for foreign body for MRI TECHNIQUE: AP and lateral views of the orbits were submitted for interpretation. Comparison: None available at the time of this dictation. FINDINGS/IMPRESSION: There are no radiopaque metallic foreign bodies. The osseous structures are unremarkable. Patient is cleared for MRI. ACT 112: Negative or not required by law. Electronically signed by: Edward Valiente M.D. 03/07/2022 12:52 PM Hand X-Ray 03/08/22 08:58 XR hand RT min 3V routine HISTORY: 76 years-old Male Swelling of right hand acute pain and swelling of the right hand COMPARISON: 06/19/2021 TECHNIQUE: 3 views of the right hand FINDINGS: The scapholunate interval is widened to 4 mm compatible with prior ligamentous injury. 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 Subcortical cystic changes of the carpus. No acute fracture, dislocation or opaque foreign body. Mild dorsal wrist soft tissue prominence. IMPRESSION: Soft tissue swelling without acute fracture or dislocation. ACT 112: Negative or not required by law. The above report was generated using voice recognition software. It may contain grammatical, syntax or spelling errors. Electronically signed by: Deonte Myles M.D. 03/08/2022 10:50 AM Venous Doppler Study 03/08/22 08:58 US venous doppler UE RT HISTORY: 76 years-old Male Right hand swelling acute pain and swelling of the right upper extremity COMPARISON: None TECHNIQUE: Multiple real-time sonographic images of the right upper extremity deep venous structures were obtained assessing grayscale appearance, color and spectral flow FINDINGS: Normal flow, compressibility, phasicity and augmentation of the right upper extremity deep venous structures. IMPRESSION: No DVT. ACT 112: Negative or not required by law. The above report was generated using voice recognition software. It may contain grammatical, syntax or spelling errors. Electronically signed by: Deonte Myles M.D. 03/08/2022 10:03 AM
--- NOTE | 2022-03-09 13:12 | Pharmacy Report ---
- Date of Service March 09, 2022 - Pharmacy CVA/TIA Medication Review Medications to Prevent Stroke handout has been added to the patients discharge packet. Antiplatelet(s) * Aspirin 81 mg by mouth daily * Clopidogrel 75 mg by mouth daily Cholesterol * High intensity statin: atorvastatin 40 mg daily DVT Prophylaxis * Heparin 5000 units subcutaneously every 8 hours Therapeutic Anticoagulation * No history of Afib/Aflutter noted Type 2 Diabetes * Patient has T2DM and patient is prescribed semaglutide
--- NOTE | 2022-03-09 18:20 | Electrocardiogram Report ---
Test Reason : Blood Pressure : / mmHG Vent. Rate : 068 BPM Atrial Rate : 068 BPM P-R Int : 168 ms QRS Dur : 088 ms QT Int : 390 ms P-R-T Axes : 066 -59 001 degrees QTc Int : 414 ms Normal sinus rhythm with sinus arrhythmia Left axis deviation Abnormal ECG When compared with ECG of 08-MAR-2022 05:03, No significant change was found Confirmed by Vinay Walker ([id number]) on 03/09/2022 6:19:33 PM Referred By: REFERRED SELF Confirmed By:Stan Walker
[2022-03-09] MEDS: ATORVASTATIN 20 MG TAB PO SCH (20:48)
[2022-03-09] MEDS: DOXYCYCLINE HYCLATE 100 MG CAP PO SCH (20:49)
[2022-03-10] MEDS: HEPARIN SOD 5,000 UNIT/0.5 ML VIAL SQ SCH ×3 (07:58→22:05)
[2022-03-10] MEDS: INSULIN ASPART PER UNIT SC SCH ×4 (08:53→21:44)
[2022-03-10] MEDS: FINASTERIDE 5 MG TAB PO SCH (08:55)
[2022-03-10] MEDS: LANTUS PER UNIT CHARGE SQ SCH (08:55)
[2022-03-10] MEDS: ASPIRIN 81 MG CHEW PO SCH (08:55)
[2022-03-10] MEDS: CLOPIDOGREL BISULFATE 75 MG TAB PO SCH (08:55)
[2022-03-10] MEDS: DOXYCYCLINE HYCLATE 100 MG CAP PO SCH ×2 (08:56→22:02)
[2022-03-10] MEDS: METOPROLOL TARTRATE 25 MG TAB PO SCH ×2 (10:25→22:02)
[2022-03-10] MEDS: amLODIPine BESYLATE 5 MG TAB PO SCH (10:25)
--- NOTE | 2022-03-10 12:12 | Pharmacy Report ---
Pharmacy Glycemic Short Note 2 - Date of Service March 10, 2022 - Glycemic Short BSG Results (Last 24 hours): 03/09/22 03/09/22 03/10/22 16:18 20:09 07:04 POC Glucose 222 H 120 H 157 H 03/10/22 11:29 POC Glucose 110 H OUTPATIENT ANTIDIABETIC REGIMEN: * Levemir 14 units SC HS * Metformin 1 g PO BIDM * Ozempic 0.5 mg SC weekly (Fridays - did NOT take 03/06/22) * HbA1c: 6.9% (03/08/22) ASSESSMENT: 03/10: * Mr. Ward received 16 units of insulin yesterday, 7 units basal + 9 units bolus. BSGs were: 276-577-487-120 mg/dL. * Fasting BSG was 157 mg/dL this AM. Will increase basal slightly. * No changes in Novolog. 03/08: * BSGs well-controlled since time of admission * NPO -> T2DM diet last evening * Fasting BSG elevated at 151 mg/dL this morning - will give conservative basal dose this morning * Given downtrend in BSGs (103 mg/dL at lunch), will loosen Novolog parameters 03/07: * PK is a 76 year old male presents to ED today with stroke-like symptoms since (03/05/22). Presented to ED yesterday evening, but left AMA and subsequently suffered a fall and expresses worsening right-sided facial droop + speech difficulties * Differential at this time includes TIA, Dickens's palsy, and lyme disease * BSG at presentation is 159 mg/dL * Last HbA1c in our records is 7% from 2019, will recheck with AM labs tomorrow * Patient is NPO at this time * Will utilize weight-based stress of 2 Novolog and conservative lantus scale this evening PLAN FOR INPATIENT GLYCEMIC CONTROL: * Hold outpatient oral diabetes medications * Basal insulin * Lantus 8 units SC daily * Bolus insulin * NovoLog per scale ACHS or Q6hrs while NPO * Goal Range: Low 110 mg/dL - High 140 mg/dL * Correction Factor: 35 mg/dL/unit * Nutritional / Prandial insulin per carb ratio of 1 unit per 15 grams CHO consumed
--- NOTE | 2022-03-10 13:18 | Hospitalist Progress Note ---
Date of Service March 10, 2022 Assessment & Plan (1) Stroke-like symptoms: (2) Diabetes mellitus, type 2: (3) Hyperlipidemia: (4) CAD (coronary artery disease): (5) BPH (benign prostatic hyperplasia): Plan 76-year-old stroke-like symptoms started on . The patient was in the ED last evening until 2300 when he signed out AMA after he decided he wanted to go home. He was having unsteadiness with ambulation and then this morning experienced a fall without hitting his head and more right sided facial droop and speech difficulties with aphasia. At baseline the patient is fully independent, just last week he was cutting trees down. He does at times use a cane for walking assistance. At baseline he takes a baby aspirin and low-dose statin. head CT and CTA negative. 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 -MRI reviewed by neurology; DWI/ACD change in upper pontine area suggestive of ischemic stroke. Evaluated by speech; diarrhea started Echo with bubble study done;EF of 60-65%. normal LV size. Plan; -Started on DAPT including aspirin and Plavix as recommended by neurology. Total duration for 90 days; Plavix after that. Patient is on cilostazol at home which we will discontinue. -Blood pressure control; started on amlodipine. Continue on home metoprolol -Blood glucose control. PT OT evaluation recommend inpatient Rehab -Lipitor increased from 20mg to 40mg once daily. Telemetry monitoring Equivocal Lyme IgM test -History of tick bite; -western blot sent for confirmation; will be back by the end of the week. - will empirically treat for 1 week. Right hand swelling -On examination; diffusely swollen right hand without any overlying skin changes -Reports injury on the dorsal aspect 1 year ago -X-ray hand shows soft tissue swelling. -Venous duplex negative for DVT -Monitor for now. DM2: -Blood sugars range 1 60-1 80 -Takes metformin, Ozempic (injections on Fridays) -Takes Levemir 14 units nightly -We will hold all home diabetic medications and place on AC at bedtime FSBS with SSI -Glycemic pharmacy consult placed for long-acting insulin assistance - A1c- 6.9%. CAD: H/O AAA: HTN: -Repaired by Dr. Burt in 2019 -Last echo 2010; EF 60 to 65%, G1 diastolic dysfunction, normal wall motion -Takes Cilostazol; stopped and started on aspirin/Plavix. -Takes metoprolol 12.5 mg p.o. twice daily at home. Amlodipine 5 mg once a day added. HLD: -Increased lipitor to 40mg once daily from 20mg once daily. Disposition: PCP: [facility] Code Status: Full code VTE Prophylaxis: heparin PT OT evaluation completed; recommend inpatient rehab. Case management on board. Dc when placement available Admission and Anticipated Discharge Date Admission Date: March 07, 2022 Subjective Comfortable; not in any distress. Denies any headache, chest pain or shortness of breath. Review of Systems Review of Systems: All systems reviewed & are unremarkable except as noted in Subjective Physical Exam Physical Exam: Constitutional: WD/WN, vitals as above, NAD, sitting up in bed, pleasant, conversing easily Respiratory: normal respiratory effort, lungs clear to auscultation, no wheeze, rales, rhonchi. Normal insp/exp effort, no accessory muscle use Cardiovascular: RRR, no murmur, no edema Vessels: no JVD or carotid bruit Chest: normal inspection of chest Abdomen: normal bowel sounds, soft, nontender, no hepatosplenomegaly Musculoskeletal: Soft tissue swelling present on right hand; nontender. Scar alex from prior injury on dorsal aspect. Skin: no rashes, warm and dry normal turgor Neurologic: Awake, alert orient x3. Right lower facial droop. Dysmetria in right upper and lower extremity. Strength intact otherwise. Psychiatric: A+Ox3, euthymic affect Lymphatic: no cervical or axillary lymphadenopathy : deferred Results & Data Results & Data ([facility]) Vital Signs (Past 12 Hours) Vital Signs Temp Pulse Pulse Resp BP Pulse Ox O2 Del Method 03/10/22 12:22 36.6 C 72 16 121/62 97 Room Air 03/10/22 10:31 65 03/10/22 09:24 109/67 03/10/22 08:46 36.7 C 16 L 96 H 109/67 96 Room Air 03/10/22 04:08 36.8 C 66 18 97/67 L 94 Room Air Laboratory Results Laboratory Results WBC 9.91 K/ul (4.8-10.8) 03/09/22 08:00 RBC 5.43 M/uL (4.63-6.08) 03/09/22 08:00 Hgb 17.4 g/dl (14.0-18.0) 03/09/22 08:00 Hct 50.0 % (40.1-51.0) 03/09/22 08:00 MCV 92.1 fL (80.0-100.0) 03/09/22 08:00 MCH 32.0 pg (25.0-34.0) 03/09/22 08:00 MCHC 34.8 g/dL (32.0-36.0) 03/09/22 08:00 RDW Std Deviation 42.8 fL (36.4-46.3) 03/09/22 08:00 RDW Coeff of Nafisa 12.7 % (11.5-14.5) 03/09/22 08:00 Plt Count 175 K/uL (130-400) 03/09/22 08:00 MPV 10.2 fL (9.4-12.4) 03/09/22 08:00 Immature Gran % (Auto) 0.4 % 03/09/22 08:00 Neut % (Auto) 67.6 % 03/09/22 08:00 Lymph % (Auto) 22.7 % 03/09/22 08:00 Coos % (Auto) 6.7 % 03/09/22 08:00 Eos % (Auto) 2.3 % 03/09/22 08:00 Baso % (Auto) 0.3 % 03/09/22 08:00 Neut # (Auto) 6.70 K/uL (1.4-6.5) H 03/09/22 08:00 Lymph # (Auto) 2.25 K/uL (1.2-3.4) 03/09/22 08:00 Coos # (Auto) 0.66 K/uL (0.24-0.82) 03/09/22 08:00 Eos # (Auto) 0.23 K/uL (0-0.50) 03/09/22 08:00 Baso # (Auto) 0.03 K/uL (0-0.2) 03/09/22 08:00 Immature Gran # (Auto) 0.04 K/uL (0.00-0.02) H 03/09/22 08:00 ESR 16 mm/hr (0-20) 03/07/22 07:45 ESR Cancelled 03/07/22 07:45 PT 11.9 Seconds (9.0-12.0) 03/07/22 11:25 INR 1.1 (0.9-1.1) 03/07/22 11:25 Sodium 141 mmol/L (136-145) 03/09/22 08:00 Potassium 4.2 mmol/L (3.5-5.1) 03/09/22 08:00 Chloride 107 mmol/L (98-107) 03/09/22 08:00 Carbon Dioxide 27 mmol/L (21-32) 03/09/22 08:00 Anion Gap 7 (3-11) 03/09/22 08:00 BUN 24 mg/dl (6-23) H 03/09/22 08:00 Creatinine 1.35 mg/dl (0.6-1.4) 03/09/22 08:00 Est Cr Clr Drug Dosing 45.7 ml/min 03/09/22 08:00 Est GFR ( Amer) 59.1 ml/min 03/09/22 08:00 Est GFR (Non-Af Amer) 51.0 ml/min 03/09/22 08:00 BUN/Creatinine Ratio 17.8 (10-20) 03/09/22 08:00 Glucose 164 mg/dl (70-99(Fasting)) H 03/09/22 08:00 POC Glucose 110 mg/dl (70-99) H 03/10/22 11:29 Estimat Average Glucose 151 mg/dl 03/08/22 05:23 Hemoglobin A1c 6.9 % (4.5-5.6) H 03/08/22 05:23 Calcium 9.5 mg/dl (8.5-10.1) 03/09/22 08:00 Magnesium 1.8 mg/dl (1.7-2.4) 03/08/22 05:23 Total Bilirubin 0.7 mg/dl (0.2-1.0) 03/07/22 07:45 AST 16 U/L (13-39) 03/07/22 07:45 ALT 17 U/L (7-52) 03/07/22 07:45 Alkaline Phosphatase 78 U/L (34-104) 03/07/22 07:45 Troponin I High Sens 5.5 pg/ml (0-20) 03/07/22 11:25 C-Reactive Protein < 0.50 mg/dl (0-0.5) 03/07/22 11:25 Total Protein 7.2 gm/dl (6.0-8.3) 03/07/22 07:45 Albumin 4.5 gm/dl (3.4-5.0) 03/07/22 07:45 Globulin 2.7 gm/dl (2.5-4.0) 03/07/22 07:45 Albumin/Globulin Ratio 1.7 (0.9-2) 03/07/22 07:45 Triglycerides 114 mg/dl (0-150) 03/07/22 11:25 Cholesterol 137 mg/dl (0-200) 03/07/22 11:25 LDL Cholesterol, Calc 84 mg/dl 03/07/22 11:25 VLDL Cholesterol, Calc 23 mg/dl (0-30) 03/07/22 11:25 HDL Cholesterol 30 mg/dl 03/07/22 11:25 Cholesterol/HDL Ratio 4.6 (0-5) 03/07/22 11:25 Lipase 52 U/L (11-82) 03/07/22 07:45 TSH 5.533 uIu/ml (0.300-4.500) H 03/07/22 07:45 Free T4 1.14 ng/dl (0.61-1.60) 03/07/22 07:45 Urine Color Yellow 03/07/22 19:14 Urine Appearance Clear (Clear) 03/07/22 19:14 Urine pH 6.5 (4.5-7.5) 03/07/22 19:14 Ur Specific [place] 1.015 (1.000-1.030) 03/07/22 19:14 Urine Protein Negative (Negative) 03/07/22 19:14 Urine Glucose (UA) Negative (Negative) 03/07/22 19:14 Urine Ketones Trace (Negative) H 03/07/22 19:14 Urine Blood Negative (Negative) 03/07/22 19:14 Urine Nitrite Negative (Negative) 03/07/22 19:14 Urine Bilirubin Negative (Negative) 03/07/22 19:14 Urine Urobilinogen Negative (Negative) 03/07/22 19:14 Ur Leukocyte Esterase Negative (Negative) 03/07/22 19:14 Lyme Disease IgG Ab Negative (Negative) 03/07/22 07:45 Lyme Disease IgM Ab Equivocal (Negative) A 03/07/22 07:45 SARS-CoV-2 (PCR) NEGATIVE (Negative) 03/07/22 09:23 Influenza Type A (PCR) Negative (Neg) 03/07/22 09:23 Influenza Type B (PCR) Negative (Neg) 03/07/22 09:23 RSV (RT-PCR) Negative (Neg) 03/07/22 09:23 Impressions Chest X-Ray 03/07/22 07:46 XR chest 1V portable CLINICAL HISTORY: weakness TECHNIQUE: Single frontal radiograph of the chest was obtained. Comparison: Comparison is made to chest radiograph 08/23/2019 FINDINGS: No lines and tubes are seen. Calcified aortic knob is seen. The lungs are clear. No evidence of pleural effusion or pneumothorax. IMPRESSION: No acute abnormalities and in particular no evidence of pneumonia. ACT 112: Negative or not required by law. Electronically signed by: Edward Valiente M.D. 03/07/2022 8:[address] 03/07/22 07:46 CT head/brain wo con CLINICAL HISTORY: fall, stroke like symptoms Technique: Contiguous axial CT images of the head were acquired from the base of the skull to the vertex without intravenous contrast administration. Images were viewed in brain, subdural and bone windows. Automated dose lowering techniques and/or adjustment according to patient size were utilized for this exam. Comparison: Comparison is made to CT head 03/06/2022 Findings: The ventricles, basal cisterns, and cerebral sulci are normal. There is no acute intracranial hemorrhage or evidence of acute territorial infarction. Neither mass effect, shift of the midline structures, nor abnormal extra-axial fluid collections are shown. Imaged portions of the paranasal sinuses and mastoid air cells are clear. The orbits appear normal. There are no acute fractures of the calvaria or scalp swelling. Impression: No acute intracranial hemorrhage, no evidence of acute territorial infarction or other acute intracranial disease process. ACT 112: Negative or not required by law. Electronically signed by: Ewdard Valiente M.D. 03/07/2022 8:29 AM Brain MRI 03/07/22 11:30 MR brain wo con CLINICAL HISTORY: acute cva TECHNIQUE: Multiplanar and multisequence MR images of the brain were obtained without intravenous contrast. Comparison: None available at the time of this dictation. FINDINGS: No abnormal restricted diffusion is identified. Foci of T2 and FLAIR hyperintensity are noted in the paraventricular areas consistent with chronic small vessel ischemic disease. Ex vacuo ventriculomegaly and sulcal enlargement is noted compatible with diffuse encephalomalacia. No mass is seen. There is no mass effect or midline shift. There is no evidence of acute intraparenchymal hemorrhage. No extra axial fluid collections are seen. The corpus callosum, pituitary gland, and cerebellar tonsils appear grossly unremarkable. Flow voids of the major intracranial arterial vessels are identified. The imaged portions of the paranasal sinuses, mastoid air cells, and orbits are unremarkable. IMPRESSION: No acute abnormalities. ACT 112: Negative or not required by law. Electronically signed by: Edward Valiente M.D. 03/07/2022 1:55 PM Orbit X-Ray 03/07/22 12:24 XR orbits for MRI CLINICAL HISTORY: Screening for foreign body for MRI TECHNIQUE: AP and lateral views of the orbits were submitted for interpretation. Comparison: None available at the time of this dictation. FINDINGS/IMPRESSION: There are no radiopaque metallic foreign bodies. The osseous structures are unremarkable. Patient is cleared for MRI. ACT 112: Negative or not required by law. Electronically signed by: Edward Valiente M.D. 03/07/2022 12:52 PM Hand X-Ray 03/08/22 08:58 XR hand RT min 3V routine HISTORY: 76 years-old Male Swelling of right hand acute pain and swelling of the right hand COMPARISON: 06/19/2021 TECHNIQUE: 3 views of the right hand FINDINGS: The scapholunate interval is widened to 4 mm compatible with prior ligamentous injury. 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 Subcortical cystic changes of the carpus. No acute fracture, dislocation or opaque foreign body. Mild dorsal wrist soft tissue prominence. IMPRESSION: Soft tissue swelling without acute fracture or dislocation. ACT 112: Negative or not required by law. The above report was generated using voice recognition software. It may contain grammatical, syntax or spelling errors. Electronically signed by: Doente Myles M.D. 03/08/2022 10:50 AM Venous Doppler Study 03/08/22 08:58 US venous doppler UE RT HISTORY: 76 years-old Male Right hand swelling acute pain and swelling of the right upper extremity COMPARISON: None TECHNIQUE: Multiple real-time sonographic images of the right upper extremity deep venous structures were obtained assessing grayscale appearance, color and spectral flow FINDINGS: Normal flow, compressibility, phasicity and augmentation of the right upper extremity deep venous structures. IMPRESSION: No DVT. ACT 112: Negative or not required by law. The above report was generated using voice recognition software. It may contain grammatical, syntax or spelling errors. Electronically signed by: Deonte Myles M.D. 03/08/2022 10:03 AM
[2022-03-10] MEDS: ATORVASTATIN 20 MG TAB PO SCH (22:02)
[2022-03-11 03:27] LABS: 18KDIGG Band NON-REACTIVE; 23KDIGG Band NON-REACTIVE; 23KDIGM Band REACTIVE; 28KDIGG Band NON-REACTIVE; 30KDIGG Band NON-REACTIVE; 39KDIGG Band NON-REACTIVE; 39KDIGM Band NON-REACTIVE; 41KDIGG Band REACTIVE; 41KDIGM Band NON-REACTIVE; 45KDIGG Band NON-REACTIVE; 58KDIGG Band NON-REACTIVE; 66KDIGG Band NON-REACTIVE; 93KDIGG Band NON-REACTIVE; Lyme Antibodies, WB IgG NEGATIVE (NEGATIVE); Lyme Antibodies, WB IgM NEGATIVE (NEGATIVE)
[2022-03-11] MEDS: HEPARIN SOD 5,000 UNIT/0.5 ML VIAL SQ SCH ×2 (04:50→15:38)
[2022-03-11] MEDS: INSULIN ASPART PER UNIT SC SCH ×2 (07:30→13:05)
[2022-03-11] MEDS: amLODIPine BESYLATE 5 MG TAB PO SCH (09:00)
[2022-03-11] MEDS: METOPROLOL TARTRATE 25 MG TAB PO SCH (09:00)
[2022-03-11] MEDS: CLOPIDOGREL BISULFATE 75 MG TAB PO SCH (09:00)
[2022-03-11] MEDS: DOXYCYCLINE HYCLATE 100 MG CAP PO SCH (09:00)
[2022-03-11] MEDS: FINASTERIDE 5 MG TAB PO SCH (09:00)
[2022-03-11] MEDS: ASPIRIN 81 MG CHEW PO SCH (09:00)
[2022-03-11] MEDS ORDERED: STROKE PATIENT DISCHARGE STA (11:12)
[2022-03-11] MEDS: LANTUS PER UNIT CHARGE SQ SCH (11:31)
--- NOTE | 2022-03-11 11:37 | Fluoroscopy Report ---
FL video swallow CLINICAL HISTORY: assess for aspiration TECHNIQUE: Video fluoroscopy of the pharyngeal region was performed as barium mixtures of varying con sistencies were administered to the patient by the speech pathologist. A formal esophagram was not pe rformed. Comparison: Comparison is made to CTA neck 03/06/2022 FINDINGS: Total fluoroscopy time: 4.3 minutes. Dysmotility was seen. Aspiration was noted with thick and thin liquids. IMPRESSION: Aspiration was seen with thick and thin liquids. Please see the speech pathology report for further details. ACT 112: Negative or not required by law. Electronically signed by: Edward Valiente M.D. 03/11/2022 11:35 AM
--- NOTE | 2022-03-11 12:43 | Discharge Summary ---
Date of Service March 11, 2022 Admission HPI Per Admitting Provider Mr. Ward is a 76-year-old male who presented to the [facility] with his daughter Meagan after concern for stroke-like symptoms that appear to begin on . The patient was in the ED last evening until 0 when he signed out AMA after he decided he wanted to go home. He was having unsteadiness with ambulation and then this morning experienced a fall without hitting his head and more right sided facial droop and speech difficulties with aphasia. At baseline the patient is fully independent, just last week he was cutting trees down. He does at times use a cane for walking a ssistance. At baseline he takes a baby aspirin and low-dose statin. Last evening head CT and CTA were negative for embolic or hemorrhagic stroke. Some high-grade stenosis was noted with arthrosclerotic changes. His last known time being well is outside the window for thrombolytic intervention. Patient denies headache, dizziness, visual or auditory changes, shortness of breath, chest pain, palpitations, abdominal pain, appetite changes or recent trauma. Patient has right-sided facial droop, expressive aphasia, right greater than left weakness NIH on exam 8. Patient will be admitted for further evaluation and management. Please see A/P for further details. Admission Exam Per Admitting Provider Constitutional: WD/WN, vitals as above, NAD, sitting up in bed, pleasant, conversing easily Respiratory: normal respiratory effort, lungs clear to auscultation, no wheeze, rales, rhonchi. Normal insp/exp effort, no accessory muscle use Cardiovascular: RRR, no murmur, no edema Vessels: no JVD or carotid bruit Chest: normal inspection of chest Abdomen: normal bowel sounds, soft, nontender, no hepatosplenomegaly Musculoskeletal: Soft tissue swelling present on right hand; nontender. Scar alex from prior injury on dorsal aspect. Skin: no rashes, warm and dry normal turgor Neurologic: Awake, alert orient x3. Right lower facial droop. Dysmetria in right upper and lower extremity. Strength intact otherwise. Psychiatric: A+Ox3, euthymic affect Lymphatic: no cervical or axillary lymphadenopathy : deferred Principal Diagnosis Upper pontine ischemic stroke Equivocal Lyme IgM test Right hand swelling Discharge Exam Constitutional: WD/WN, vitals as above, NAD, sitting up in bed, pleasant, conversing easily Respiratory: normal respiratory effort, lungs clear to auscultation, no wheeze, rales, rhonchi. Normal insp/exp effort, no accessory muscle use Cardiovascular: RRR, no murmur, no edema Vessels: no JVD or carotid bruit Chest: normal inspection of chest Abdomen: normal bowel sounds, soft, nontender, no hepatosplenomegaly Musculoskeletal: Soft tissue swelling present on right hand; nontender. Scar alex from prior injury on dorsal aspect. Skin: no rashes, warm and dry normal turgor Neurologic: Awake, alert orient x3. Right lower facial droop. Dysmetria in right upper and lower extremity. Strength intact otherwise. Psychiatric: A+Ox3, euthymic affect Lymphatic: no cervical or axillary lymphadenopathy : deferred Discharge Data Allergies Allergy/AdvReac Type Severity Reaction Status Date / Time canagliflozin [From Invokana] Allergy Intermediate facial Verified 08/28/21 12:33 swelling lisinopril Allergy Intermediate Cough Verified 08/28/21 12:33 losartan Allergy Intermediate Cough Verified 08/28/21 12:33 azithromycin Allergy Mild Diarrhea Verified 08/28/21 12:33 Consultations 03/07/22 10:52 ED Decision to Admit Stat 03/07/22 10:53 Consult Neurology Routine Ordered Studies 03/07/22 07:46 CT head/brain wo con Stat 03/07/22 11:30 MRI Brain [MR brain wo con] Stat 03/08/22 08:58 US venous doppler UE RT Routine 03/11/22 10:30 FL video swallow Routine Hospital Course (1) Stroke-like symptoms: (2) Diabetes mellitus, type 2: (3) Hyperlipidemia: (4) CAD (coronary artery disease): (5) BPH (benign prostatic hyperplasia): Plan Upper pontine ischemic stroke Equivocal Lyme IgM test Patient is a 76-year-old male with past medical history of hypertension, AAA status postrepair in 2019, type 2 diabetes mellitus, hyperlipidemia who presented with right-sided facial droop and imbalance. Patient had presented a day prior to the admission with similar symptoms. He had CT head, CT angio head and neck done. He was recommended admission but he left AGAINST MEDICAL ADVICE. Patient returned back to the hospital as the symptoms continued to progress. 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 MRI brain was done; it was reported as no acute stroke. MRI brain was reviewed by neurology; DWI/ACD change in upper pontine area suggestive of ischemic stroke. Patient was started on dual antiplatelet therapy with aspirin and Plavix. The duration of dual antiplatelet is to be continued for 90 days; Plavix after that. His home cilostazol was discontinued. PT OT evaluation was done; recommended acute rehab. Lipitor was increased to 40 mg once daily from 20 mg once daily. VFSS was done which showed high risks of aspiration. Speech recommendation were placed in the discharge instruction; speech to follow the patient in rehab. Patient reported history of tick bite. Lyme IgM test was equivocal; confirmatory Western blot was pending which will take 1 week. Patient empir ically treated with doxycycline; will complete treatment at the rehab. Total Time Total Time Spent Total Time Spent (In Minutes): 45 Total Time Includes: Examination of the Patient, Discharge Planning, Medication Reconciliation, Communication With Other Providers and Other Discharge Plan Discharge Items Patient Disposition: Transfer Inpatient Rehab Fac Reason For Visit: STROKE-LIKE SYMPTOMS Discharge Diagnosis: Upper pontine ischemic stroke Equivocal Lyme IgM test Activity: Resume your previous activity Non-emergency contact: Primary Care Provider Call non-emergency contact if: you have any medication questions and your symptoms worsen Follow-up/Referrals: Montserrat Aguilera PA-C [Primary Care Provider] - Diet: Regular Diet Texture: Easy to Chew Addtl Attending Provider Instructions: Admitted to the hospital with stroke. started on aspirin and Plavix for 90 days. After 90 days, continue on Plavix. Cilostazol is discontinued. Amlodipine is added for high blood pressure. Patient had VFSS done day after discharge. Recommended easy to chew and thin liquid, no straws. Will benefit from lidded cup or sippy cup to assist taking smaller sips. He will need mouth care [facility]. In Rehab, have speech follow the patient for director of broadcast eval and treatment. The Lyme test done during the hospitalization is equivocal. The Western blot is pending. You are empirically treated with doxycycline. Continue doxycycline for 4 more days. Follow-up with primary care doctor in rehab regarding Western blot Pending Studies at Discharge: No Stand-Alone Forms: [employer], Medications to Prevent Stroke Skilled Items Patient informed of condition?: No DNR: No Discharge Level of Care: Acute rehab Communicable Disease: No Discharge Prognosis: Stable Lines: None Urinary Catheter: No Medications and DC Order Prescriptions: New doxycycline hyclate 100 mg Capsule 100 mg PO BID 4 Days Qty: 8 0RF atorvastatin 20 mg Tablet 40 mg PO HS Qty: 30 0RF clopidogrel 75 mg Tablet 75 mg PO QAM Qty: 90 0RF amlodipine [Norvasc] 5 mg Tablet 5 mg PO QAM Qty: 30 0RF aspirin [Children's Aspirin] 81 mg Tablet,Chewable 81 mg PO DAILY Qty: 90 0RF Continued Prostate Health 160-100-100 mg-unit-mcg Tablet 1 tab PO QAM metformin 1,000 mg Tablet 1,000 mg PO BID Levemir U-100 Insulin 100 unit/mL Solution 14 unit SUBCUT HS omega 4-gvg-nlu-fish oil [Fish Oil] 1,000 mg (120 mg-180 mg) Capsule 1 cap PO QAM Ozempic 0.25 mg or 0.5 mg(2 mg/1.5 mL) Pen Injector 5 mg SUBCUT WK Rx Instructions: TAKES ON FRIDAYS metoprolol tartrate 25 mg Tablet 12.5 mg PO BID finasteride 5 mg Tablet 5 mg PO DAILY Discontinued potassium gluconate 600 mg (99 mg) Tablet 600 mg PO BID multivitamin Tablet 1 tab PO QAM atorvastatin 10 mg Tablet 20 mg PO HS aspirin 81 mg Tablet,Delayed Release (Dr/Ec) 81 mg PO 4XWK cilostazol 50 mg Tablet 50 mg PO 1XD Discharge Orders: Discharge Order (Routine); Ordered 03/11/22 Ordered By: Dave Herzog/Other Patient Handouts: Managing Type 2 Diabetes Admission Data Admit Date/Time: 03/07/22 10:52 Attending Provider: Dave Marino Admit Provider: Dave Marino Primary Care Provider: Montserrat Aguilera Other Providers: Dave Marino ; Dino Batista ; [facility] ; [facility] Other Interventions: Discharge Summary Assessment (RN) Last Done: 03/11/22 12:08
== END 2022-03-11 15:42 | DRG 66 ==
LOC: ED 07:27 → 2E 10:52

== ENCOUNTER 2024-02-04 11:44 | Observation (INO) ==
--- NOTE | 2024-02-04 12:06 | Emergency Department Note ---
Impression & Plan Accidental overdose of insulin ADMIT ED Provider Note HPI: History obtained from patient and patient's daughter at the bedside. The patient is a 78-year-old gentleman with history of previous CVA, hyperlipidemia, type 2 diabetes, presents the emergency department with chief complaint of an insulin overdose that was accidental. Patient states this morning he took his medications at about 9 AM and meant to get his Ozempic but accidentally took 50 units of Lantus instead. Patient states his normal dose is 12 units of Lantus nightly and he does not take any short acting insulin during the day. Patient states that [facility] at the time and they gave him some sweetened iced tea to drink and he otherwise feels in his normal state of health. On arrival here to the ED the patient is in no acute distress, he is hemodynamically stable on arrival. ROS: - Per HPI Differential Diagnosis: Hypoglycemia, medication error/accidental overdose, amongst other potential pathologies. *Outpatient medications and allergy history reviewed. PE: General: Alert HEENT: Normocephalic, trachea midline Eyes: Extraocular eye movement is intact, no scleral erythema Pulmonary: Clear to auscultation bilaterally, no wheezing Cardio: Regular rate and rhythm GI: Abdomen is soft to palpation : No suprapubic tenderness MSK: No evidence of trauma or malformation of the extremities, no edema Skin: No evidence of rash Neuro: Alert, no focal deficits Psychiatric: Cooperative INDEPENDENT INTERPRETATIONS: wic site coordinator: (As interpreted by myself): - An order was placed for continuous cardiac monitoring - Patient was noted to be in sinus rhythm with a rate of 75 Medical Decision Making: IV was established and lab work obtained, lab work shows a mild leukocytosis at 11.17, hemoglobin is normal, platelet count is normal, CMP shows a mild creatinine elevation at 1.45, glucose is 294. Patient otherwise appears to be in no acute distress, I did discuss the patient's overdose with ED pharmacy, at this time given the amount of Lantus that the patient took (50 units at 9 AM) in addition to the timing of peak effect, I do feel the patient should be admitted to the hospital for close observation and glucose monitoring. I discussed the above findings with the on-call midlevel provider for [facility] [place] and the patient was placed for admission to the service of Dr. Osborn for further care. Patient and his daughter at the bedside were in agreement to this plan. Consultants/Discussions held with other healthcare providers: -Hospitalist, Dr. Osborn Disposition discussion held by myself with: -Patient and daughter at bedside Diagnosis: 1. Accidental insulin overdose, acute 2. Hyperglycemia in patient with known diabetes, acute Disposition: Admission Yasmani Dowd DO Emergency Medicine Past Med/Surg History Problem List (Updated 02/04/24 @ 15:26 by Yasmani Dowd DO) Accidental overdose of insulin (Acute) Accidental overdose of insulin BPH (benign prostatic hyperplasia) CAD (coronary artery disease) Hypertension History of colon polyps Mass of left parotid gland Hyperlipidemia (Chronic) Diabetes mellitus, type 2 (Chronic) IDDM-WELL CONTROLLED AND STABLE Medical History (Updated 02/04/24 @ 15:26 by Yasmani Dowd DO) Ischemic stroke BPH (benign prostatic hyperplasia) Tinnitus Hearing deficit WEARS HEARING AIDS Abdominal aortic aneurysm found during CAT scan for hematuria - 5.1cm - Repaired by Dr. Burt 09/06/19 - no donor services manager - Follows with [facility] Seasonal allergies Osteoarthritis Surgical History Hx of hand surgery 06/19/21 - right hand tendons repaired from band saw accident - [facility] History of AAA (abdominal aortic aneurysm) repair Dr. 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 History of arthroscopy RT KNEE History of colonoscopy History of tooth extraction History of tonsillectomy and adenoidectomy History of cardiac cath 2010= NO STENTS - No donor services manager - follows [facility] Family History Other No significant family history Social History Smoking Status: Current every day smoker Tobacco Type: Cigars Second Hand Exposure: No; Do You Dip or Chew Tobacco: No; Hx Alcohol Use: No Hx Substance Use: No Preferred Language: Tajik Communication Ability: Effective Tool Room Supervisor Required: No Beliefs That Will Affect Care: None Current Living Situation: Family Current Living Situation Comment: Daughter Feels Safe at Home: Yes Assistive Devices: Cane, Denture - Lower, Glasses and Hearing Aid - Bilateral Allergies Allergies Allergy/AdvReac Type Severity Reaction Status Date / Time canagliflozin [From Invokana] Allergy Intermediate facial Verified 08/28/21 12:33 swelling lisinopril Allergy Intermediate Cough Verified 08/28/21 12:33 losartan Allergy Intermediate Cough Verified 08/28/21 12:33 azithromycin Allergy Mild Diarrhea Verified 08/28/21 12:33 Home Meds Home Medications Medication Instructions Recorded Confirmed insulin detemir U-100 100 unit/mL 12 unit subcut HS 10/28/18 02/04/24 subcutaneous solution (Levemir U-100 Insulin) metformin 1,000 mg tablet 1,000 mg PO DAILY 10/28/18 02/04/24 semaglutide 0.25 mg or 0.5 mg (2 0.5 mg subcut WK 10/28/18 02/04/24 mg/1.5 mL) subcutaneous pen injector (Ozempic) metoprolol tartrate 25 mg tablet 12.5 mg PO BID 08/28/21 02/04/24 Magnesium Carbonate 1 tsp PO HS 02/04/24 02/04/24 albuterol sulfate 90 mcg/actuation 2 puff inhalation QID PRN sob 02/04/24 02/04/24 aerosol inhaler glucose 4 tabs PO DIRECTED PRN 02/04/24 02/04/24 Hypoglycemia multivitamin 1 tab PO DAILY 02/04/24 02/04/24 potassium gluconate 2.5 mEq tablet 2.5 meq PO SUWE 02/04/24 02/04/24 terazosin 1 mg capsule 1 mg PO HS 02/04/24 02/04/24 Previous Rx's Medication Instructions Recorded aspirin 81 mg chewable tablet 81 mg PO DAILY #90 tabs 03/11/22 (Children's Aspirin) atorvastatin 20 mg tablet 40 mg (2 x 20 mg) PO HS #30 tabs 03/11/22 clopidogrel 75 mg tablet 75 mg PO QAM #90 tabs 03/11/22 Results & Data (ED) Vital Signs Vital Signs - 24 hr 02/04/24 11:55 02/04/24 12:17 02/04/24 12:26 Temperature 36.9 C Temperature Source Temporal Artery Scan Pulse Rate 82 83 78 Pulse Rate [Left Finger] Pulse Rhythm Regular Regular Pulse Strength Normal Respiratory Rate 18 18 Respiratory Effort / Characteristics Non-Labored Spontaneous Respiratory Depth Normal Blood Pressure 148/75 H Blood Pressure [Right Arm] Blood Pressure Mean 99 Blood Pressure Mean [Right Arm] Blood Pressure Position Sitting Pulse Oximetry 98 96 Oxygen Delivery Method Room Air Room Air Sepsis Recent Fever Within 48 Hours No Sepsis New/Unexplained Change in Mental Status N/A Sepsis Action Taken by Nursing No Action Required 02/04/24 13:13 02/04/24 14:40 Temperature Temperature Source Pulse Rate Pulse Rate [Left Finger] 69 72 Pulse Rhythm Pulse Strength Respiratory Rate 16 16 Respiratory Effort / Characteristics Respiratory Depth Blood Pressure Blood Pressure [Right Arm] 138/71 126/73 Blood Pressure Mean Blood Pressure Mean [Right Arm] 93 90 Blood Pressure Position Pulse Oximetry 96 98 Oxygen Delivery Method Sepsis Recent Fever Within 48 Hours Sepsis New/Unexplained Change in Mental Status Sepsis Action Taken by Nursing Laboratory Data 02/04/24 12:18 02/04/24 12:18 Lab Results 02/04/24 02/04/24 Range/Units 11:56 12:18 WBC 11.17 H (4.8-10.8) K/ul RBC 4.98 (4.70-6.10) M/uL Hgb 15.9 (14.0-18.0) g/dl Hct 46.6 (42.0-52.0) % MCV 93.6 (80.0-100.0) fL MCH 31.9 (25.0-34.0) pg MCHC 34.1 (32.0-36.0) g/dL RDW Std Deviation 42.1 (36.4-46.3) fL RDW Coeff of Nafisa 12.2 (11.5-14.5) % Plt Count 153 (130-400) K/uL MPV 10.8 (9.4-12.4) fL Immature Gran % (Auto) 0.4 % Neut % (Auto) 67.8 % Lymph % (Auto) 18.3 % [place] % (Auto) 6.5 % Eos % (Auto) 6.3 % Baso % (Auto) 0.7 % Neut # (Auto) 7.58 H (1.40-6.50) K/uL Lymph # (Auto) 2.04 (1.20-3.40) K/uL [place] # (Auto) 0.73 H (0.11-0.59) K/uL Eos # (Auto) 0.70 H (0.00-0.50) K/uL Baso # (Auto) 0.08 (0.00-0.20) K/uL Immature Gran # (Auto) 0.04 (0.01-0.20) K/uL Sodium 138 (136-145) mmol/L Potassium 4.1 (3.5-5.1) mmol/L Chloride 102 (98-107) mmol/L Carbon Dioxide 29 (21-32) mmol/L Anion Gap 7 (3-11) BUN 22 (6-23) mg/dl Creatinine 1.45 H (0.6-1.4) mg/dl Est Cr Clr Drug Dosing 39.9 ml/min eGFR 49.63 BUN/Creatinine Ratio 15.2 (10-20) Glucose 294 H (70-99(Fasting)) mg/dl POC Glucose 343 H* (70-99) mg/dl Calcium 9.4 (8.6-10.3) mg/dl Total Bilirubin 0.5 (0.2-1.0) mg/dl AST 17 (13-39) U/L ALT 20 (7-52) U/L Alkaline Phosphatase 83 (34-104) U/L Total Protein 6.8 (6.0-8.3) gm/dl Albumin 4.1 (3.4-5.0) gm/dl Globulin 2.7 (2.5-4.0) gm/dl Albumin/Globulin Ratio 1.5 (0.9-2) Lipase 31 (11-82) U/L Discharge Plan Visit Data Chief Complaint: Overdose (Accidental) Stated Complaint: WRONG INSULIN TOO MUCH ED Provider: Yasmani Dowd Discharge Problem: Accidental overdose of insulin Forms Stand Alone Forms: My [facility] Prescriptions Prescriptions: No Action metformin 1,000 mg Tablet 1,000 mg PO DAILY Levemir U-100 Insulin 100 unit/mL Solution 12 unit SUBCUT HS Ozempic 0.25 mg or 0.5 mg(2 mg/1.5 mL) Pen Injector 0.5 mg SUBCUT WK Rx Instructions: TAKES ON FRIDAYS metoprolol tartrate 25 mg Tablet 12.5 mg PO BID atorvastatin 20 mg Tablet 40 mg PO HS Qty: 30 0RF clopidogrel 75 mg Tablet 75 mg PO QAM Qty: 90 0RF aspirin [Children's Aspirin] 81 mg Tablet,Chewable 81 mg PO DAILY Qty: 90 0RF terazosin 1 mg Capsule 1 mg PO HS albuterol sulfate 90 mcg/actuation Hfa Aerosol Inhaler 2 puff INHALATION QID PRN (Reason: sob) glucose 4 tabs PO DIRECTED PRN (Reason: Hypoglycemia) multivitamin Tablet 1 tab PO DAILY potassium gluconate 2.5 mEq Tablet 2.5 meq PO SUWE Magnesium Carbonate 1 tsp PO HS Referrals Referrals: Montserrat Aguilera PA-C [Primary Care Provider] -
[2024-02-04 12:34] LABS: Basophils # (auto) 0.08 K/uL (0.00-0.20); Basophils % (auto) 0.7 %; Eosinophils % (auto) 6.3 %; Hematocrit (blood only) 46.6 % (42.0-52.0); Hemoglobin 15.9 g/dl (14.0-18.0); Immature Granulocytes # (auto) 0.04 K/uL (0.01-0.20); Immature Granulocytes % (auto) 0.4 %; Lymphocytes # (auto) 2.04 K/uL (1.20-3.40); Lymphocytes % (auto) 18.3 %; Mean Corpuscular Hemoglobin 31.9 pg (25.0-34.0); Mean Corpuscular Hgb Conc 34.1 g/dL (32.0-36.0); Mean Corpuscular Volume 93.6 fL (80.0-100.0); Mean Platelet Volume 10.8 fL (9.4-12.4); Monocytes # (auto) 0.73 K/uL (0.11-0.59); Monocytes % (auto) 6.5 %; Neutrophils # (auto) 7.58 K/uL (1.40-6.50); Neutrophils % (auto) 67.8 %; Platelet Count 153 K/uL (130-400); RDW Coefficient of Variation 12.2 % (11.5-14.5); RDW Standard Deviation 42.1 fL (36.4-46.3); Red Blood Count 4.98 M/uL (4.70-6.10); White Blood Count 11.17 K/ul (4.8-10.8)
[2024-02-04 12:45] LABS: Albumin Globulin Ratio 1.5 (0.9-2); Albumin Level 4.1 gm/dl (3.4-5.0); BUN Creatinine Ratio 15.2 (10-20); Bilirubin,Total 0.5 mg/dl (0.2-1.0); Calcium 9.4 mg/dl (8.6-10.3); Creatinine Clr Calc Pharmacy 39.9 ml/min; Globulin 2.7 gm/dl (2.5-4.0); Potassium 4.1 mmol/L (3.5-5.1); Total Protein 6.8 gm/dl (6.0-8.3)
--- NOTE | 2024-02-04 14:12 | History & Physical Report ---
Date of Service February 04, 2024 Assessment & Plan (1) Accidental overdose of insulin: (2) Diabetes mellitus, type 2: Plan: Admit to [facility] with telemetry Patient presenting from home for evaluation after accidental overdose of Levemir insulin (patient accidentally took about 50 units of Levemir instead of weekly Ozempic dose. Patient typically takes Lantus 12 units at bedtime. Has not experienced any hypoglycemia thus far Hold all insulin and other diabetic agents Update A1c with AM labs Monitor glucose q2h (3) Ischemic stroke: Plan: History of Continue ASA, statin, Plavix (4) BPH (benign prostatic hyperplasia): Plan: Chronic, stable Continue finasteride (5) Hypertension: Plan: Chronic, stable Continue metoprolol DVT PROPHYLAXIS SQ Lovenox Patient seen in collaboration with Dr. Suárez. I spent a total of 75 minutes coordinating, documenting, and providing care for this patient excluding time spent in the performance of separately billed services. This included personally reviewing all current laboratories and imaging studies, medication reconciliation, outpatient chart review, and discussion with specialists. History of Present Illness Chief Complaint: accidental overdose of insulin Primary Care Provider: Montserrat Aguilera PA-C 78-year-old male with PMH IDDM, history of CVA, AAA s/p repair, BPH, and other problems listed below who presents to the ED for evaluation after an accidental overdose of insulin this morning. Patient reports his home health [place] nurse came to draw labs this morning and when she was done she told the patient that he could take his insulin. Patient typically takes Ozempic weekly on Fridays and Levemir 12 units at bedtime. Patient meant to take his Ozempic however accidentally grabbed his Levemir pen and took about 50 units. Patient almost i mmediately recognized his mistake and then drank some sweet tea and ate a sandwich. Patient was brought to the ED for further evaluation. Patient thus far has not experienced any hypoglycemia. Denies lightheadedness, dizziness, diaphoresis. Patient reports he otherwise has been feeling well recently. Denies any other recent illnesses, fevers, chills. No chest pain or shortness of breath. Denies abdominal pain or nausea. No urinary symptoms. In the ED, patient is hemodynamically stable. Most recent glucose is 294. Allergies Allergy/AdvReac Type Severity Reaction Status Date / Time canagliflozin [From Invokana] Allergy Intermediate facial Verified 08/28/21 12:33 swelling lisinopril Allergy Intermediate Cough Verified 08/28/21 12:33 losartan Allergy Intermediate Cough Verified 08/28/21 12:33 azithromycin Allergy Mild Diarrhea Verified 08/28/21 12:33 Home Medications Medication Instructions Recorded Confirmed Type insulin detemir U-100 100 unit/mL 12 unit subcut HS 10/28/18 02/04/24 History subcutaneous solution (Levemir U-100 Insulin) metformin 1,000 mg tablet 1,000 mg PO DAILY 10/28/18 02/04/24 History semaglutide 0.25 mg or 0.5 mg (2 0.5 mg subcut WK 10/28/18 02/04/24 History mg/1.5 mL) subcutaneous pen injector (Ozempic) metoprolol tartrate 25 mg tablet 12.5 mg PO BID 08/28/21 02/04/24 History aspirin 81 mg chewable tablet 81 mg PO DAILY #90 tabs 03/11/22 02/04/24 Rx (Children's Aspirin) atorvastatin 20 mg tablet 40 mg (2 x 20 mg) PO HS #30 tabs 03/11/22 02/04/24 Rx clopidogrel 75 mg tablet 75 mg PO QAM #90 tabs 03/11/22 02/04/24 Rx Magnesium Carbonate 1 tsp PO HS 02/04/24 02/04/24 History albuterol sulfate 90 mcg/actuation 2 puff inhalation QID PRN sob 02/04/24 02/04/24 History aerosol inhaler glucose 4 tabs PO DIRECTED PRN 02/04/24 02/04/24 History Hypoglycemia multivitamin 1 tab PO DAILY 02/04/24 02/04/24 History potassium gluconate 2.5 mEq tablet 2.5 meq PO SUWE 02/04/24 02/04/24 History terazosin 1 mg capsule 1 mg PO HS 02/04/24 02/04/24 History Past Med/Surg History Problem List (Updated 02/04/24 @ 15:26 by Yasmani Dowd DO) Accidental overdose of insulin (Acute) Accidental overdose of insulin BPH (benign prostatic hyperplasia) CAD (coronary artery disease) Hypertension History of colon polyps Mass of left parotid gland Hyperlipidemia (Chronic) Diabetes mellitus, type 2 (Chronic) IDDM-WELL CONTROLLED AND STABLE Medical History (Updated 02/04/24 @ 15:26 by Yasmani Dowd, ) Ischemic stroke BPH (benign prostatic hyperplasia) Tinnitus Hearing deficit WEARS HEARING AIDS Abdominal aortic aneurysm found during CAT scan for hematuria - 5.1cm - Repaired by Dr. Burt 09/06/19 - no pickle sorter - Follows with [facility] Seasonal allergies Osteoarthritis Surgical History Hx of hand surgery 06/19/21 - right hand tendons repaired from band saw accident - [facility] History of AAA (abdominal aortic aneurysm) repair Dr. 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 History of arthroscopy RT KNEE History of colonoscopy History of tooth extraction History of tonsillectomy and adenoidectomy History of cardiac cath 2011= NO STENTS - No pickle sorter - follows [facility] Family History Other No significant family history Social History Smoking Status: Current every day smoker Tobacco Type: Cigars Second Hand Exposure: No; Do You Dip or Chew Tobacco: No; Hx Alcohol Use: No Hx Substance Use: No Preferred Language: Swazi Communication Ability: Effective Automation Sales Manager Required: No Beliefs That Will Affect Care: None Current Living Situation: Family Current Living Situation Comment: Daughter Other Information That Helps Us Care for You: No Feels Safe at Home: Yes Safety Concerns: Feels Safe At This Time Assistive Devices: Cane Review of Systems Review of Systems: ROS per HPI, all other systems reviewed and negative Physical Exam Physical Exam: Please refer to Dr. Suárez's addendum for physical exam Results & Data Results & Data Vital Signs (Past 12 Hours) Vital Signs Temp Pulse Pulse Resp BP BP Pulse Ox 02/04/24 13:13 69 16 138/71 96 02/04/24 12:26 78 18 96 02/04/24 12:17 83 02/04/24 11:55 36.9 C 82 18 148/75 H 98 O2 Del Method 02/04/24 13:13 02/04/24 12:26 Room Air 02/04/24 12:17 12/20/24 11:55 Room Air Laboratory Results Short CBC 02/04/24 Range/Units 12:18 WBC 11.17 H (4.8-10.8) K/ul Hgb 15.9 (14.0-18.0) g/dl Hct 46.6 (42.0-52.0) % Plt Count 153 (130-400) K/uL BMP 02/04/24 12:18 Sodium 138 Potassium 4.1 Chloride 102 Carbon Dioxide 29 BUN 22 Creatinine 1.45 H Glucose 294 H Calcium 9.4 Liver Function 02/04/24 Range/Units 12:18 Total Bilirubin 0.5 (0.2-1.0) mg/dl AST 17 (13-39) U/L ALT 20 (7-52) U/L Alkaline Phosphatase 83 (34-104) U/L Albumin 4.1 (3.4-5.0) gm/dl Code Status & VTE Plan VTE Prophylaxis Plan VTE Prophylaxis will be ordered: Yes Supervising Physician Co-Signing Physician Notes Patient seen and examined Presents after mistakenly taking insulin glargine injection instead of ozempic He usually takes insulin glargine 12-14U HS and ozempic once a week on Fridays He mistakenly took 50U of insulin this AM around 9AM Denied any complaints at this time General: Not in acute distress Eyes: PERRL, conjunctivae normal, not pale, anicteric sclerae, EOM intact bilaterally ENMT: External ear and nose normal, oropharynx normal Respiratory: Normal respiratory effort, no respiratory distress, lungs clear to auscultation, no crackles and no wheezes Cardiovascular: RRR S1 S2 Gastrointestinal (Abdomen): Abdomen is not distended, soft, non-tender to palpation, no guarding, no palpable hepatosplenomegaly, normal bowel sounds Musculoskeletal: No pedal edema Neurologic: Alert and oriented x 3, No focal weakness, sensation grossly intact Psychiatric: Euthymic affect, no SI/HI Unintentional Insulin overdose Per daughter and patient, he ate and got some sugary drink per home RN prior to presentation to ER Will hold insulin for now and monitor accucheck closely If BG continues to run high later in the evening, may start low dose insulin sliding scale only. No long acting insulin for today If BG starts to drop, start D10 and monitor BG Continue other home meds I spent a total of 45 minutes coordinating, documenting and providing care for this patient excluding time spent in performance of separately billed services
[2024-02-04] MEDS ORDERED: ACETAMINOPHEN 325 MG TAB PO PRN (16:09)
[2024-02-04] MEDS: DEXTROSE 10% 1,000 ML IV SCH (16:34)
[2024-02-04] MEDS: ATORVASTATIN 40 MG TAB PO SCH (19:39)
[2024-02-04] MEDS: TERAZOSIN HCL 1 MG CAP PO SCH (19:40)
[2024-02-04] MEDS: METOPROLOL TARTRATE 25 MG TAB PO SCH (19:40)
--- OUTSIDE RECORDS SUMMARY | 2024-02-04 20:51 | External Medical Summary | Continuity of Care Document ---
Author Name Unknown Organization [facility] [address] [facility] Address [address] [place], [place] [id number] Care Team Providers Care Shoulder Pad Molder Name Role Phone Montserrat Snell Primary Care Physician [phone] Encounter [facility] [id number] Date(s): 12/29/23 - 12/29/23 [facility], [address] [place] [address] [phone] Encounter Diagnosis AAA (abdominal aortic aneurysm)(Discharge Diagnosis) - 12/29/23 Peripheral arterial disease(Discharge Diagnosis) - 12/29/23 Discharge Disposition: Home or Self Care Attending Physician: MD Burt Eugene J Referring Physician: JACEK Snell Lindsay Marie Allergies, Adverse Reactions, Alerts Substance Criticality Severity Reaction Reaction Severity Status azithromycin Diarrhea Active lisinopril Cough Active losartan Cough Active Invokana Swelling - edema - symptom Active Assessment and Plan Extracted from: Title:Clinical Document Author:JACEK Paredes Lynn Date:12/29/23 [facility] OUTPATIENT NOTE Name: ELIER QUIJANO Patient Number: [id number] : 1945 Date of Service: 12/29/2023 Chief Complaint: _Follow-up for P EVAR and PAD HPI: _Mr. Quijano is an elderly male who presents to Dr. Burt vascular surgery clinic today for an annual follow-up visit regarding his history of P EVAR which occurred in 2019. Patient is overall doing well since being seen here last year. He denies any significant changes in his health. He continues to get leg cramps bilaterally from his thighs to his feet which occur primarily when he is in bed at night. He denies any significant edema throughout the day, and does not notice much of a change when he is wearing his compression stockings versus not wearing them. He denies any calf claudication symptoms while being active throughout the day, and is still able to complete all of his normal daily activities. He denies rest pain, nonhealing wounds or ulcerations. He has aortoiliac ultrasound performed prior to his department demonstrates a widely patent P EVAR without stenosis or endoleak. His residual aneurysm sac has decreased again to 3.5 cm in its largest diameter. It was 3.8 cm 1 year ago. Current Home Meds: (Last Updated 12/28 09:30) aspirin (aspirin 81 mg oral delayed release tablet) 81 mg PO Daily atorvastatin (Lipitor 10 mg oral tablet) 20 mg PO qhs clopidogrel (clopidogrel 75 mg oral tablet) 75 mg PO Daily insulin glargine (insulin glargine 100 units/mL subcutaneous solution) 12 unit subQ qhs magnesium carbonate 1/4 teaaspoon metFORMIN 500 mg PO bid metoprolol (metoprolol tartrate 25 mg oral tablet) 12.5 mg PO bid multivitamin 1 tab PO Daily potassium chloride (potassium chloride 99 mg oral tablet) 99 mg PO Daily as needed semaglutide (Ozempic (0.25 mg or 0.5 mg dose) 2 mg/3 mL subQ pen) 0.5 mg subQ q7days terazosin (terazosin 10 mg oral capsule) 20 mg PO Daily Allergies and Sensitivities: losartan(Cough) lisinopril(Cough) azithromycin(Diarrhea) Invokana(Swelling - edema - symptom) Past Medical History: Problems: Venous insufficiency Peripheral arterial disease (atherosclerosis) S/P AAA repair using bifurcation graft Tobacco user AAA (abdominal aortic aneurysm) Hyperlipidemia Enlarged lymph node Atherosclerotic heart disease Hypertension Diabetes Parotid mass OBJECTIVE Vitals: Last Updated 12/29/23 09:40 Date Temp BP Location Pulse RR SpO2 Pain 12/29/23 130/66 Right Arm 12/29/23 128/64 Left Arm 75 95 0 12/30/22 160/58 Right Arm Vital Signs are the last 3 documented. No Orthostatic Data Available Height and Weight: Last Updated 11/07/20 10:56 Date BMI Wt(kg) Wt(lb) Method Ht(cm) (ft-in) Method 11/07/20 86.9 191 Standing Scale 09/21/19 79.6 175 Standing Scale 08/14/19 26 77.56 171 Standing Scale 172.72 5-8 Heights and Weights are the last 3 documented. Physical Exam Constitutional: In general patient is a healthy-appearing well-nourished well-developed elderly male no distress. He is alert and oriented with any focal deficits. His heart is regular, lungs are decreased but clear. Abdomen is soft nontender rectal sounds in a 4 quadrants. Brachial and radial pulses are +3. Femoral pulses are +4. Lower extremity distal pulses are left leg +1 PT nonpalpable DP, right leg DP +1 PT +1. He has brisk capillary fill no sign of distal ischemia. ASSESSMENT: _ PLAN: _ 1 ) _abdominal aortic aneurysm, history of P EVAR Patient's endovascular aneurysm repair is essentially stable with a residual aneurysm sac measuring 3.5 cm. He continues to have no endoleak and no stenosis is noted. We would have this reevaluated in 2 years with a aortoiliac ultrasound prior to that office visit. 2 ) _peripheral arterial disease Patient does have a known right SFA stenosis versus occlusion, but acceptable NELLI. Left leg had demonstrated no significant areas of stenosis. This was on imaging performed in 2021. He remains asymptomatic from this, as he has no claudication symptoms. If he should develop some, we would be happy to reevaluate him earlier than his scheduled visit here in 2 years. Patient is agreeable to this plan. His daughter was also present today for today's visit. Thank you for letting us participate in the care of this patient. I have personally spent_25__ minutes performing kasw-qc-lrom and fpg-zdks-rm-face activities on this date of service.Time does not include separately reported services. Activities Include: _x_ review of the medical record _x_ obtaining a history _x_ physical exam/evaluation __ review labs x__ review radiology reports _x_ counseling/educating patient/family/caregiver __ discussion/referral to other healthcare professional x__ documenting care in the medical record __ independent interpretation of results _x_ communication of results to patient/family/caregiver _x_ coordination of care Medications aspirin 81 mg oral delayed release tablet Start: 07/19/18 9:26:00 AM EDT, 1 tab, PO, Daily Start Date: 07/19/18 Status: Ordered clopidogrel 75 mg oral tablet Start: 12/30/22 9:10:00 AM EST, 1 tab, PO, Daily Start Date: 12/30/22 Status: Ordered insulin glargine 100 units/mL subcutaneous solution Start: 12/30/22 9:11:00 AM EST, 12 unit =, subQ, qhs Start Date: 12/30/22 Status: Ordered Lipitor 10 mg oral tablet Start: 07/19/18 9:26:00 AM EDT, 2 tab, PO, qhs Start Date: 07/19/18 Status: Ordered magnesium carbonate Start: 12/29/23 9:29:00 AM EST, / teaaspoon Start Date: 12/29/23 Status: Ordered metFORMIN Start: 07/19/18 9:25:00 AM EDT, 500 mg =, PO, bid Start Date: 07/19/18 Status: Ordered metoprolol tartrate 25 mg oral tablet Start: 01/01/21 4:17:00 PM EST, 0.5 tab, PO, bid Start Date: 01/01/21 Status: Ordered multivitamin Start: 08/14/19 3:29:00 PM EDT, 1 tab, PO, Daily Start Date: 08/14/19 Status: Ordered Ozempic (0.25 mg or 0.5 mg dose) 2 mg/3 mL subQ pen Start: 12/29/23 9:30:00 AM EST, 0.5 mg, subQ, q7days, Disp# 9 mL, Supply Start Date: 12/29/23 Status: Ordered potassium chloride 99 mg oral tablet Start: 08/14/19 3:30:00 PM EDT, 1 tab, PO, Daily, as needed Start Date: 08/14/19 Status: Ordered terazosin 10 mg oral capsule Start: 12/30/22 9:18:00 AM EST, 2 cap, PO, Daily Start Date: 12/30/22 Status: Ordered Mental Status 12/29/23 Barriers to Learning one year None evide nt Mandatory Health Literacy Documentation Yes Health Literacy Communication Barriers N ever Primary Language [place]alander Problem List Condition Confirmation Course Effective Dates Status H ealth Status Informant AAA (abdominal aortic aneurysm) Confirmed Active (atherosclerosis) Confirmed Active Atherosclerotic heart disease Confirmed Active Diabetes Confirmed Active S/P AAA repair using bifurcation graft Confirmed Active Hyperlipidemia Confirmed Active Hypertension Confirmed Active Enlarged lymph node Confirmed Active Parotid mass Confirmed Active Peripheral arterial disease Confirmed Active Tobacco user Confirmed Active Venous insufficiency Confirmed Active Diagnosis Diagnosis Type Effective Dates Health Status Clinical Service Informant Peripheral arterial disease Discharge Diagnosis 12/29/23 AAA (abdominal aortic aneurysm) Discharge Diagnosis 12/29/23 Procedures Procedure Date Related Diagnosis Body Site Status PEVAR 09/06/19 Completed 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 Smoking Status Never smoked cigaret star Sex Male Sex Representation Male (finding) [facility] Outpt Note * JACEK Paredes Lynn: PERFORM Event Display: [facility] Outpt Note Authored Date: [id number] [facility] OUTPATIENT NOTE Name: ELIER QUIJANO Patient Number: [id number] : 1945 Date of Service: 12/29/2023 Chief Complaint: _Follow-up for P EVAR and PAD HPI: _Mr. Quijano is an elderly male who presents to Dr. Burt vascular surgery clinic today for an annual follow-up visit regarding his history of P EVAR which occurred in 2019. Patient is overall doing well since being seen here last year. He denies any significant changes in his health. He continues to get leg cramps bilaterally from his thighs to his feet which occur primarily when he is in bed at night. He denies any significant edema throughout the day, and does not notice much of a change when he is wearing his compression stockings versus not wearing them. He denies any calf claudication symptoms while being active throughout the day, and is still able to complete all of his normal daily activities. He denies rest pain, nonhealing wounds or ulcerations. He has aortoiliac ultrasound performed prior to his department demonstrates a widely patent P EVAR without stenosis or endoleak. His residual aneurysm sac has decreased again to 3.5 cm in its largestdiameter. It was 3.8 cm 1 year ago. Current Home Meds: (Last Updated 12/28 09:30) aspirin (aspirin 81 mg oral delayed release tablet) 81 mg PO Daily atorvastatin (Lipitor 10 mg oral tablet) 20 mg PO qhs clopidogrel (clopidogrel 75 mg oral tablet) 75 mg PO Daily insulin glargine (insulin glargine 100 units/mL subcutaneous solution) 12 unit subQ qhs magnesium carbonate 1/4 teaaspoon metFORMIN 500 mg PO bid metoprolol (metoprolol tartrate 25 mg oral tablet) 12.5 mg PO bid multivitamin 1 tab PO Daily potassium chloride (potassium chloride 99 mg oral tablet) 99 mg PO Daily as needed semaglutide (Ozempic (0.25 mg or 0.5 mg dose) 2 mg/3 mL subQ pen) 0.5 mg subQ q7days terazosin (terazosin 10 mg oral capsule) 20 mg PO Daily Allergies and Sensitivities: losartan(Cough) lisinopril(Cough) azithromycin(Diarrhea) Invokana(Swelling - edema - symptom) Past Medical History: Problems: Venous insufficiency Peripheral arterial disease (atherosclerosis) S/P AAA repair using bifurcation graft Tobacco user AAA (abdominal aortic aneurysm) Hyperlipidemia Enlarged lymph node Atherosclerotic heart disease Hypertension Diabetes Parotid mass OBJECTIVE Vitals: Last Updated 12/29/23 09:40 Date Temp BP Location Pulse RR SpO2 Pain 12/29/23 130/66 Right Arm 12/29/23 128/64 Left Arm 75 95 0 12/30/22 160/58 Right Arm Vital Signs are the last 3 documented. No Orthostatic Data Available Height and Weight: Last Updated 11/07/20 10:56 Date BMI Wt(kg) Wt(lb) Method Ht(cm) (ft-in) Method 11/07/20 86.9 191 Standing Scale 09/21/19 79.6 175 Standing Scale 08/14/19 26 77.56 171 Standing Scale 172.72 5-8 Heights and Weights are the last 3 documented. Physical Exam Constitutional: In general patient is a healthy-appearing well-nourished well- developed elderly male no distress. He is alert and oriented with any focal deficits. His heart is regular, lungs are decreased but clear. Abdomen is soft nontender rectal sounds in a 4 quadrants. Brachial and radial pulses are +3. Femoral pulses are +4. Lower extremity distal pulses are left leg +1 PT nonpalpable DP, right leg DP +1 PT +1. He has brisk capillary fill no sign of distal ischemia. ASSESSMENT: _ PLAN: _ 1 ) _abdominal aortic aneurysm, history of P EVAR Patient's endovascular aneurysm repair is essentially stable with a residual aneurysm sac measuring3.5 cm. He continues to have no endoleak and no stenosis is noted. We would have this reevaluated in 2 years with a aortoiliac ultrasound prior to that office visit. 2 ) _peripheral arterial disease Patient does have a known right SFA stenosis versus occlusion, but acceptable NELLI. Left leg had demonstrated no significant areas of stenosis. This was on imaging performed in 2021. He remains asymptomatic from this, as he has no claudication symptoms. If he should develop some, we would be happy to reevaluate him earlier than his scheduled visit here in 2 years. Patient is agreeable to this plan. His daughter was also present today for today's visit. Thank you for letting us participate in the care of this patient. I have personally spent_25__ minutes performing your-pa-exmo and gyc-ners-ka-face activities on this date of service.Time does not include separately reported services. Activities Include: _x_ review of the medical record _x_ obtaining a history _x_ physical exam/evaluation __ review labs x__ review radiology reports _x_ counseling/educating patient/family/caregiver __ discussion/referral to other healthcare professional x__ documenting care in the medical record __ independent interpretation of results _x_ communication of results to patient/family/caregiver _x_ coordination of care Electronic Signature on File CC: Montserrat Snell PA-C [address] [facility] [place] [id number] * Electronically Reviewed/Signed by: Abril Paredes PA-C Author Signature Dt/Tm:12/29/2023 10:09 AM [facility] [place], [address] [place]. [address] LM Patient Care team information Care Team Personnel Name: JACEK Snell, Montserrat Cruz Position: Referring Member Role: Primary Care Provider Address: [address] [place], [place] [address] [address] [place] Name: JACEK Paredes Lynn Position: Physician Staffing Recruiter Exempt - Vasc Surg Member Role: Lifetime Relationship Address: [address] [place] [id number] [place] Care Team Related Persons Name: ANA MARIA QUIJANO
--- OUTSIDE RECORDS SUMMARY | 2024-02-04 20:51 | External Medical Summary | Continuity of Care Document ---
Author Name Unknown Organization [place] [address] [address] Address [address] [place], [place] [id number] Care Team Providers Care Surveillance Sensor Officer Name Role Phone Montserrat Snell Primary Care Physician [phone] [id number] Date(s): 12/29/23 - 12/29/23 [facility] [address], [address] [place] [address] [phone] Discharge Disposition: Home or Self Care Attending Physician: JACEK Paredes Lynn Referring Physician: JACEK Paredes Lynn Allergies, Adverse Reactions, Alerts Substance Criticality Severity Reaction Reaction Severity Status azithromycin Diarrhea Active lisinopril Cough Active Invokana Swelling - edema - symptom Active losartan Cough Active Medications aspirin 81 mg oral delayed release [...] PO, Daily Start Date: 12/30/22 Status: Ordered Problem List Condition Confirmation Course Effective Dates [...] user Confirmed Active Venous insufficiency Confirmed Active Procedures Procedure Date Related Diagnosis Body Site Status PEVAR 09/06/19 Completed 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 ompleted Surgery 1 Completed Tonsillectomy and adenoidectomy Completed 1right knee Results Radiology Reports * Exam Date Time Procedure Performing Provider Status 12/29/23 9:06 AM VL Aortoiliac Duplex Complete ; Final Notes: (VL Aortoiliac Duplex Complete) Reason For Exam: aaa, evar VL Aortoiliac Duplex Complete [facility] FINAL REPORT Name: ELIER QUIJANO : 1945 Visit: [id number] Date: 29 Dec 2023 TYPE OF TEST: Aorto-Iliac Duplex REASON FOR TEST Endovascular AAA repair INTERPRETATION/FINDINGS Arterial duplex imaging performed of the abdominal aorta and bilateral iliac arteries: 1. Patent infrarenal [id number] endovascular aneurysm repair without evidence of stenosis or endoleak. The residual aneurysm sac measures 3.5 cm AP by 3.5 cm Trnvs. 2. No hemodynamically significant stenosis in the abdominal aorta or bilateral external iliac, left internal iliac or bilateral common femoral arteries. 3. Elevated velocities insonated in the proximal right internal iliac artery, consistent with hemodynamically significant stenosis. Compared to the previous study performed 11/13/2022, the residual aneurysm sac size has decreased from 3.8 cm to 3.5 cm; otherwise, there is no significant change. IMPRESSION/COMMENTS I have personally reviewed the data relevant to the interpretation of this study. TECHNOLOGIST: Tiarra Cardenas RDCS, RVT PHYSICIAN: Hector Burt M.D. Signed: 12/29/2023 10:16 AM Final Dictated by:MD Burt Eugene J Dictated DT/TM:12/29/2023 10:16 Signed by:MD Burt Eugene J Signed (Electronic Signature):12/29/2023 10:16 Transcribed by:GERALDO Social History Social History Type Response Tobacco Current every day sm oker, Cigars, 5 per day. Smoking Status Never smoked cigaret star Sex Male Sex Representation Male (finding) Patient Care team information Care Team Personnel Name: JACEK Snell Lindsay Marie Position: Referring Member Role: Primary Care Provider Address: [address] [place] [id number] [place] Name: JACEK Paredes Lynn Position: Physician Insurance Professional Exempt - Vasc Surg Member Role: Lifetime Relationship Address: [address] [place] [address] Care Team Related Persons Name: ANA MARIA QUIJANO
[2024-02-04] MEDS: HEPARIN SOD 5,000 UNIT/0.5 ML VIAL SQ SCH (22:06)
[2024-02-05 02:01] VITALS: RESP 16
[2024-02-05 06:30] LABS: Hematocrit (blood only) 44.4 % (42.0-52.0); Hemoglobin 15.8 g/dl (14.0-18.0); Mean Corpuscular Hemoglobin 32.3 pg (25.0-34.0); Mean Corpuscular Hgb Conc 35.6 g/dL (32.0-36.0); Mean Corpuscular Volume 90.8 fL (80.0-100.0); Mean Platelet Volume 10.6 fL (9.4-12.4); Platelet Count 141 K/uL (130-400); RDW Coefficient of Variation 12.1 % (11.5-14.5); RDW Standard Deviation 40.6 fL (36.4-46.3); Red Blood Count 4.89 M/uL (4.70-6.10); White Blood Count 11.03 K/ul (4.8-10.8)
[2024-02-05 06:48] LABS: BUN Creatinine Ratio 16.9 (10-20); Calcium 9.1 mg/dl (8.6-10.3); Creatinine Clr Calc Pharmacy 42.5 ml/min; Potassium 4.2 mmol/L (3.5-5.1)
[2024-02-05 07:37] LABS: Estimated Average Glucose 169 mg/dl; Hemoglobin A1C 7.5 % (4.5-5.6)
[2024-02-05 07:42] VITALS: BP 143/75; PULSE 67; TEMP 98.2; O2SAT 95
[2024-02-05] MEDS: ASPIRIN 81 MG CHEW PO SCH (08:11)
[2024-02-05] MEDS: CLOPIDOGREL BISULFATE 75 MG TAB PO SCH (08:11)
--- NOTE | 2024-02-05 11:51 | Hospitalist Progress Note ---
Date of Service February 05, 2024 Assessment & Plan (1) Accidental overdose of insulin: Plan: Accidentally took 50 units of Levemir instead of usual 12 units at bedtime Became very anxious and came to emergency room Has been getting D10 infusion since admission Did not have any episodes of hypoglycemia or any hypoglycemic symptoms Blood sugar has been running more than 140s D10 has been stopped and he will have diabetic diet and he did not receive any insulin today He will be discharged home this afternoon (2) Diabetes mellitus, type 2: Plan: Admit to [facility] with telemetry Patient presenting from home for evaluation after accidental overdose of Levemir insulin (patient accidentally took about 50 units of Levemir instead of weekly Ozempic dose. Patient typically takes Lantus 12 units at bedtime. Has not experienced any hypoglycemia thus far Hold all insulin and other diabetic agents Update A1c with AM labs-7.5 Blood glucose has been normal (3) Ischemic stroke: Plan: History of Continue ASA, statin, Plavix (4) BPH (benign prostatic hyperplasia): Plan: Chronic, stable Continue finasteride (5) Hypertension: Plan: Chronic, stable Continue metoprolol DVT PROPHYLAXIS SQ Lovenox Patient seen in collaboration with Dr. Suárez. Admission and Anticipated Discharge Date Admission Date: February 04, 2024 Subjective 02/05/2024 The patient was seen and examined in medical telemetry unit He was admitted with accidental overdose of long-acting insulin He was anxious and did not have any significant hypoglycemia and/or symptoms Has been feeling a lot better and likes to go home this afternoon Review of Systems Review of Systems: All systems reviewed and are unremarkable except as noted below Physical Exam Physical Exam: Lying in bed without any acute distress Constitutional: well developed, well nourished and average body habitus; not ill appearing Eyes: PERRL, conjunctivae normal, anicteric sclerae ENMT: external ear and nose normal, oropharynx normal Neck: trachea midline, no thyromegaly Respiratory: no respiratory distress Auscultation: lungs clear to auscultation bilaterally Cardiovascular: Rate/Rhythm: regular rate and regular rhythm; not tachycardic Heart Sounds: normal S1 and normal S2; no murmur Extremities: no edema Gastrointestinal (Abdomen): Inspection/Auscultation: normal bowel sounds; abdomen not distended Percussion/Palpation: abdomen soft; abdomen nontender Musculoskeletal: No acute arthritis involving any of the joints Neurologic: normal touch/pain/proprioception and moves all extremities; no focal motor deficits Psychiatric: A+Ox3, euthymic affect Lymphatic: no cervical or axillary lymphadenopathy Results & Data Results & Data Vital Signs (Past 12 Hours) Vital Signs Temp Pulse Pulse Resp BP Pulse Ox O2 Del Method 02/05/24 10:14 Room Air 02/05/24 07:42 36.8 C 67 16 143/75 H 95 Room Air 02/05/24 05:49 62 02/05/24 02:00 36.5 C 66 16 118/70 93 Room Air 02/05/24 00:38 Room Air 02/05/24 00:33 68 Laboratory Results Short CBC 02/04/24 02/05/24 Range/Units 12:18 06:04 WBC 11.17 H 11.03 H (4.8-10.8) K/ul Hgb 15.9 15.8 (14.0-18.0) g/dl Hct 46.6 44.4 (42.0-52.0) % Plt Count 153 141 (130-400) K/uL [facility] 02/04/24 02/05/24 12:18 06:04 Sodium 138 140 Potassium 4.1 4.2 Chloride 102 107 Carbon Dioxide 29 26 BUN 22 23 Creatinine 1.45 H 1.36 Glucose 294 H 140 H Calcium 9.4 9.1 Liver Function 02/04/24 Range/Units 12:18 Total Bilirubin 0.5 (0.2-1.0) mg/dl AST 17 (13-39) U/L ALT 20 (7-52) U/L Alkaline Phosphatase 83 (34-104) U/L Albumin 4.1 (3.4-5.0) gm/dl Medications Administered Current Inpatient Medications Acetaminophen (Acetaminophen 325 Mg Tab) 650 mg PO Q4H PRN PRN Reason: pain/fever Stop: 03/05/24 16:08 Aspirin (Aspirin 81 Mg Chew) 81 mg PO DAILY CRISTHIAN Stop: 03/06/24 08:59 Last Admin: 02/05/24 08:11 Dose: 81 mg Atorvastatin Calcium (Atorvastatin 40 Mg Tab) 40 mg PO HS CRISTHIAN Stop: 03/05/24 20:59 Last Admin: 02/04/24 19:39 Dose: 40 mg Clopidogrel Bisulfate (Clopidogrel Bisulfate 75 Mg Tab) 75 mg PO QAM CRISTHIAN Stop: 03/06/24 08:59 Last Admin: 02/05/24 08:11 Dose: 75 mg Heparin Sodium (Porcine) (Heparin Sod 5,000 Unit/0.5 Ml Vial) 5,000 units SQ Q8 CRISTHIAN Stop: 03/05/24 21:59 Last Admin: 02/05/24 05:50 Dose: 5,000 units Metoprolol Tartrate (Metoprolol Tartrate 25 Mg Tab) 12.5 mg PO BID CRISTHIAN Stop: 03/05/24 20:59 Last Admin: 02/05/24 08:11 Dose: 12.5 mg Terazosin HCl (Terazosin Hcl 1 Mg Cap) 1 mg PO HS CRISTHIAN Stop: 03/05/24 20:59 Last Admin: 02/04/24 19:40 Dose: 1 mg
[2024-02-05] MEDS: PNEUMOCOCCAL VACCINE (PCV20) 20-VAL CONJ-DIP CRM/PF 0.5 ML SYR IM ONE (13:38)
--- NOTE | 2024-02-05 18:51 | Discharge Summary ---
Date of Service February 05, 2024 Admission HPI Per Admitting Provider 78-year-old male with PMH IDDM, history of CVA, AAA s/p repair, BPH, and other problems listed below who presents to the ED for evaluation after an accidental overdose of insulin this morning. Patient reports his home health [place] nurse came to draw labs this morning and when she was done she told the patient that he could take his insulin. Patient typically takes Ozempic weekly on Fridays and Levemir 12 units at bedtime. Patient meant to take his Ozempic however accidentally grabbed his Levemir pen and took about 50 units. Patient almost immediately recognized his mistake and then drank some sweet tea and ate a sandwich. Patient was brought to the ED for further evaluation. Patient thus far has not experienced any hypoglycemia. Denies lightheadedness, dizziness, diaphoresis. Patient reports he otherwise has been feeling well recently. Denies any other recent illnesses, fevers, chills. No chest pain or shortness of breath. Denies abdominal pain or nausea. No urinary symptoms. In the ED, patient is hemodynamically stable. Most recent glucose is 294. Admission Exam Per Admitting Provider General: Not in acute distress Eyes: PERRL, conjunctivae normal, not pale, anicteric sclerae, EOM intact bilaterally ENMT: External ear and nose normal, oropharynx normal Respiratory: Normal respiratory effort, no respiratory distress, lungs clear to auscultation, no crackles and no wheezes Cardiovascular: RRR S1 S2 Gastrointestinal (Abdomen): Abdomen is not distended, soft, non-tender to palpation, no guarding, no palpable hepatosplenomegaly, normal bowel sounds Musculoskeletal: No pedal edema Neurologic: Alert and oriented x 3, No focal weakness, sensation grossly intact Psychiatric: Euthymic affect, no SI/HI Principal Diagnosis Accidental insulin overdose close Discharge Exam Lying in bed without any acute distress Constitutional well developed, well nourished and average body habitus; not ill appearing Eyes PERRL, conjunctivae normal, anicteric sclerae ENMT external ear and nose normal, oropharynx normal Neck trachea midline, no thyromegaly Respiratory no respiratory distress Auscultation: lungs clear to auscultation bilaterally Cardiovascular Rate/Rhythm: regular rate and regular rhythm; not tachycardic Heart Sounds: normal S1 and normal S2; no murmur Extremities: no edema Gastrointestinal (Abdomen) Inspection/Auscultation: normal bowel sounds; abdomen not distended Percussion/Palpation: abdomen soft; abdomen nontender Neurologic normal touch/pain/proprioception and moves all extremities; no focal motor deficits Psychiatric A+Ox3, euthymic affect Lymphatic no cervical or axillary lymphadenopathy Discharge Data Allergies Allergy/AdvReac Type Severity Reaction Status Date / Time canagliflozin [From Invokana] Allergy Intermediate facial Verified 08/28/21 12:33 swelling lisinopril Allergy Intermediate Cough Verified 08/28/21 12:33 losartan Allergy Intermediate Cough Verified 08/28/21 12:33 azithromycin Allergy Mild Diarrhea Verified 08/28/21 12:33 Consultations 02/04/24 12:55 ED Decision to Admit Stat Hospital Course (1) Accidental overdose of insulin: Accidentally took 50 units of Levemir instead of usual 12 units at bedtime Became very anxious and came to emergency room Has been getting D10 infusion since admission Did not have any episodes of hypoglycemia or any hypoglycemic symptoms Blood sugar has been running more than 140s D10 has been stopped and he will have diabetic diet and he did not receive any insulin today He will be discharged home this afternoon (2) Diabetes mellitus, type 2: Admit to [facility] with telemetry Patient presenting from home for evaluation after accidental overdose of Levemir insulin (patient accidentally took about 50 units of Levemir instead of weekly Ozempic dose. Patient typically takes Lantus 12 units at bedtime. Has not experienced any hypoglycemia thus far Hold all insulin and other diabetic agents Update A1c with AM labs-7.5 Blood glucose has been normal (3) Ischemic stroke: History of Continue ASA, statin, Plavix (4) BPH (benign prostatic hyperplasia): Chronic, stable Continue finasteride (5) Hypertension: Chronic, stable Continue metoprolol DVT PROPHYLAXIS SQ Lovenox Patient seen in collaboration with Dr. Suárez. Total Time Total Time Spent Total Time Spent (In Minutes): 35 minutes Discharge Plan Discharge Items Patient Disposition: Home - Self-Care Reason For Visit: ACCIDENTAL INSULIN OVERDOSE Discharge Diagnosis: Accidental insulin overdose close Condition on Discharge: Good Activity: Resume your previous activity Non-emergency contact: Primary Care Provider Call non-emergency contact if: you have any medication questions and your symptoms worsen Follow-up/Referrals: Brahosky,Montserrat M., PA-C [Primary Care Provider] - (Please make an appointment with your PCP within 7 days) Diet: Carb Consistent or DM2 Addtl Attending Provider Instructions: Please take precautions to avoid falls Take your medications as advised Please keep appointments with the healthcare provider Pending Studies at Discharge: No Stand-Alone Forms: [facility] [employer], Smoking Cessation Medications and DC Order Prescriptions: Continued metformin 1,000 mg Tablet 1,000 mg PO DAILY Levemir U-100 Insulin 100 unit/mL Solution 12 unit SUBCUT HS Ozempic 0.25 mg or 0.5 mg(2 mg/1.5 mL) Pen Injector 0.5 mg SUBCUT WK Rx Instructions: TAKES ON FRIDAYS metoprolol tartrate 25 mg Tablet 12.5 mg PO BID atorvastatin 20 mg Tablet 40 mg PO HS Qty: 30 0RF clopidogrel 75 mg Tablet 75 mg PO QAM Qty: 90 0RF aspirin [Children's Aspirin] 81 mg Tablet,Chewable 81 mg PO DAILY Qty: 90 0RF terazosin 1 mg Capsule 1 mg PO HS albuterol sulfate 90 mcg/actuation Hfa Aerosol Inhaler 2 puff INHALATION QID PRN (Reason: sob) glucose 4 tabs PO DIRECTED PRN (Reason: Hypoglycemia) multivitamin Tablet 1 tab PO DAILY potassium gluconate 2.5 mEq Tablet 2.5 meq PO SUWE Magnesium Carbonate 1 tsp PO HS Discharge Orders: Discharge Order (Routine); Ordered 02/05/24 Ordered By: Dewey Streeter Admission Data Admit Date/Time: 02/04/24 13:24 Attending Provider: Dewey Streeter Admit Provider: Meaghan Suárez I. Primary Care Provider: Montserrat Aguilera Other Providers: Meaghan Suárez I.; [facility] Other Interventions: Discharge Summary Assessment (RN) Last Done: 02/05/24 13:29
== END 2024-02-05 14:44 | disposition home or self-care (01) ==
LOC: ED 11:44 → EDINP 11:44 → SUATTDRO 13:24 → 2W 15:57